=== PATIENT | female | born 1960 | race Two or more races ===

== ENCOUNTER → 2017-03-08 | Outpatient (CLI) | payer OTHER ==
--- NOTE | 2017-03-08 15:32 | RAD ---
DATE: 03/08/2017 EXAM: DIGITAL SCREEN BILAT W/CAD HISTORY: 56-year-old female for routine screening COMPARISON: Previous study from 2013 This study was interpreted with the benefit of Computerized Aided Detection (CAD ). FINDINGS: Breast Density: SCATTERED The breast parenchyma shows scattered fibroglandular densities. Breast parenchyma level B. Benign bilateral calcifications. There is a 0.9 x 1.5 cm oval-shaped isodense mass with circumscribed margins within central right breast approximately 4 cm from the nipple in inferior to the posterior nipple line on MLO view. No suspicious calcifications or areas of architectural distortion. Left breast show no suspicious findings. IMPRESSION: Mass within the central right breast most likely simple cyst. However, ultrasound recommended for further evaluation. BI-RADS CATEGORY: 0 INCOMPLETE: NEED ADDITIONAL IMAGING EVAULATION AND/OR PRIOR MAMMOGRAMS FOR COMPARISON RECOMMENDED FOLLOW-UP: PQRS compliance statement: Patient information was entered into a reminder system with a target due date for the next mammogram. Mammography is a sensitive method for finding small breast cancers, but it does not detect them all and is not a substitute for careful clinical examination. A negative mammogram does not negate a clinically suspicious finding and should not result in delay in biopsying a clinically suspicious abnormality. "Our facility is accredited by the [employer] Mammography Program." [place]
== END | disposition home or self-care (01) ==
LOC: MAMMO 13:21
PROVIDERS: ATTEND Obstetrics & Gynecology
DX: Z12.31 Encounter for screening mammogram for malignant neoplasm of breast (principal)
CPT/HCPCS: G0202; 77067

== ENCOUNTER → 2017-03-11 | Outpatient (CLI) | payer OTHER ==
--- NOTE | 2017-03-11 12:52 | RAD ---
Ultrasound breast Indication: Mammographic abnormality seen on study from 03/08/2017 Technique: Targeted ultrasound of the right breast Comparison: Previous mammogram from 03/08/2017 Findings: There is an oval-shaped hypoechoic lesion at 7:00 position, 4 cm from nipple measuring 1.1 x 0.4 x 1.3 cm with well circumscribed margins. The lesion is wider than taller. Low-level echoes are seen within this lesion. No vascularity seen. There is suggestion of internal septation. Impression: Lesion in the right breast most likely minimally complicated cyst. Follow-up ultrasound in 6 months. BI-RADS 3: Probably benign. Follow-up ultrasound in 6 months recommended.
== END | disposition home or self-care (01) ==
LOC: US 10:48
PROVIDERS: ATTEND Obstetrics & Gynecology
DX: R92.8 Other abnormal and inconclusive findings on diagnostic imaging of breast (principal)
CPT/HCPCS: 76641

== ENCOUNTER → 2017-08-29 | Outpatient (CLI) | payer OTHER | END | disposition home or self-care (01) | LOC: US 10:58 | DX: N60.01 Solitary cyst of right breast (principal) | CPT/HCPCS: 76641 ==

== ENCOUNTER 2018-11-28 09:46 | Inpatient (IN) | payer OTHER ==
[2018-11-28] VITALS (10 sets, daily range): BP systolic 82–97; BP diastolic 56–63
[~2018-11-28] VITALS: Ht 154.9 cm; Wt 70.8 kg
[2018-11-28 10:02] LABS: BILIRUBIN,URINE NEGATIVE (NEG); CLARITY,URINE TURBID; COLOR,URINE YELLOW; NITRITE,URINE NEGATIVE (NEG); PROTEIN,URINE 100 mg/dL (NEG-TRACE)
[2018-11-28 10:31] LABS: BACTERIA,URINE FEW /HPF (0-FEW); RBC,URINE 0 /HPF (0-2); SQUAMOUS EPITHELIAL CELL,UR MOD /LPF; WBC,URINE TNTC /HPF (0-4)
[2018-11-28] MEDS ORDERED: ONDANSETRON PF 4 MG/2 ML VIAL. ONE (10:36)
[2018-11-28] MEDS ORDERED: KETOROLAC 30 MG/ML VIAL. ONE (10:36)
[2018-11-28 10:39] LABS: BASO % 0 % (0-3); EOS # 0.2 x10^3/uL (0.0-0.7); EOS % 1 % (0-3); HEMATOCRIT 35.4 % (36.0-47.0); HEMOGLOBIN 11.9 g/dL (12.0-15.5); LYMPH # 0.2 x10^3/uL (1.0-4.8); LYMPH % 2 % (24-48); MEAN CORPUSCULAR HEMOGLOBIN 29 pg (25-35); MEAN CORPUSCULAR HGB CONC 34 g/dL (31-37); MEAN CORPUSCULAR VOLUME 85 fL (79-100); MONO # 0.1 x10^3/uL (0.0-1.1); MONO % 1 % (0-9); NEUT # 12.5 x10^3uL (1.8-7.7); NEUT % 96 % (31-73); PLATELET COUNT 107 x10^3/uL (140-400); RED BLOOD COUNT 4.16 x10^6/uL (3.50-5.40); RED CELL DISTRIBUTION WIDTH 14.2 % (11.5-14.5)
[2018-11-28] MEDS: IV NORMAL SALINE 1000ML BAG 1,000 ML IV SCH ×2 (10:40→11:27)
[2018-11-28] MEDS ORDERED: ONDANSETRON PF 4 MG/2 ML VIAL. IV ONE (10:45)
[2018-11-28] MEDS ORDERED: KETOROLAC 30 MG/ML VIAL. IV ONE (10:45)
[2018-11-28 10:46] LABS: PROTHROMBIN TIME PATIENT 14.5 SEC (11.7-14.0)
[2018-11-28 10:53] LABS: CALCIUM 9.1 mg/dL (8.5-10.1); CREATININE 1.6 mg/dL (0.6-1.0); POTASSIUM 3.4 mmol/L (3.5-5.1)
[2018-11-28 10:58] LABS: ALBUMIN 2.5 g/dL (3.4-5.0); ALBUMIN/GLOBULIN RATIO 0.6 (1.0-1.7); TOTAL PROTEIN 6.5 g/dL (6.4-8.2)
[2018-11-28] MEDS ORDERED: IV NORMAL SALINE 1000ML BAG 1,000 ML IV ONE ×3 (11:00→12:30)
[2018-11-28] MEDS ORDERED: VANCOMYCIN 1.5 GM in IV NORMAL SALINE 500ML BAG 500 ML IV ONE (11:15)
[2018-11-28] MEDS ORDERED: CEFEPIME HCL IV Push 1 GM VIAL. IVP ONE (11:15)
--- NOTE | 2018-11-28 11:19 | RAD ---
CHEST PA LATERAL History: Cough, left-sided pain Comparison: None. Findings: The cardiomediastinal silhouette is normal. Pulmonary vasculature is normal. The lungs are clear. No pleural effusion or pneumothorax is seen. There is no acute bone abnormality. Small hiatal hernia is present with a fluid level within it. Calcific densities involving the left upper quadrant noted. Dextroconvexity of the thoracic spine noted. IMPRESSION: No acute cardiopulmonary process. Hiatal hernia. Electronically signed by: Qasim Gross MD (11/28/2018 11:16 AM) [facility]
[2018-11-28 11:23] LABS: % BANDS 13 % (0-9); % LYMPHS 3 % (24-48); % MONOS 3 % (0-10); % SEGS 81 % (35-66); PLT ESTIMATE DECREASED (ADEQUATE)
[2018-11-28 11:25] LABS: TOXIC VACUOLATION MOD
[2018-11-28 11:26] LABS: TOXIC GRANULATION PRESENT
[2018-11-28] MEDS ORDERED: IV NORMAL SALINE 1000ML BAG 1,000 ML IV SCH (12:29)
[2018-11-28] MEDS ORDERED: MORPHINE SULFATE 2 MG/ML VIAL. IV PRN (12:30)
[2018-11-28] MEDS ORDERED: ONDANSETRON PF 4 MG/2 ML VIAL. IV PRN (12:30)
[2018-11-28] MEDS ORDERED: ACETAMINOPHEN 325 MG TABLET. PO PRN (12:30)
--- NOTE | 2018-11-28 12:30 | EKG ---
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
--- NOTE | 2018-11-28 12:37 | PHYS DOC ---
Past Medical History Past Medical History: No Pertinent History (LINNETTE OTT APRN) Past Surgical History: Hysterectomy Additional Past Surgical Histo: (LINNETTE OTT APRN) Alcohol Use: None Drug Use: None (LINNETTE OTT APRN) Adult General Chief Complaint Chief Complaint: NAUSEA/VOMITING/DIARRHA HPI HPI Patient is a 58 year old female with no significant medical history who presents to the ED today complaining of body aches, subjective fevers, nausea, vomiting, slight nasal congestion, not feeling well, symptoms began on Tuesday last week. She states yesterday she was seen by the PCP, was diagnosed with influenza, was put on Tamiflu as well as Augmentin. She does not know why she was put on Augmentin. She states she was also experiencing low back pain. Denies any urgency frequency dysuria. Denies any hematuria. (LINNETTE OTT APRN) Review of Systems Review of Systems Constitutional: Denies fever or chills [] Eyes: Denies change in visual acuity, redness, or eye pain [] HENT: Denies nasal congestion or sore throat [] Respiratory: Denies cough or shortness of breath [] Cardiovascular: No additional information not addressed in HPI [] GI: Reports nausea, vomiting, denies abdominal pain bloody stools or diarrhea [] : Denies dysuria or hematuria [] Musculoskeletal: Denies back pain or joint pain [] Integument: Denies rash or skin lesions [] Neurologic: Denies headache, focal weakness or sensory changes [] All other systems were reviewed and found to be within normal limits, except as documented in this note. (LINNETTE OTT APRN) Current Medications Current Medications Current Medications Medications (Trade) Dose Ordered Sig/Ella Start Time Stop Time Status Last Admin Dose Admin Cefepime HCl (Maxipime) 1 gm 1X ONCE 11/28/18 11:15 11/28/18 11:16 DC 11/28/18 11:26 1 GM Ketorolac Tromethamine (Toradol 30mg Vial) 30 mg STK-MED ONCE 11/28/18 10:36 11/28/18 10:37 DC Ondansetron HCl (Zofran) 4 mg STK-MED ONCE 11/28/18 10:36 11/28/18 10:37 DC Sodium Chloride 1,000 ml @ 125 mls/hr 1X ONCE 11/28/18 12:15 11/28/18 20:14 11/28/18 12:28 125 MLS/HR Vancomycin HCl (Vanco Per Pharmacy) 1 each PRN DAILY PRN 11/28/18 11:00 11/28/18 14:58 1 EACH Vancomycin HCl 1.5 gm/Sodium Chloride 500 ml @ 250 mls/hr 1X ONCE 11/28/18 11:15 11/28/18 13:14 DC 11/28/18 11:31 250 MLS/HR (LUCIA BOWERS MD) Allergies Allergies Allergies Coded Allergies Type Severity Reaction Last Updated Verified No Known Drug Allergies 11/28/18 No (LUCIA BOWERS MD) Physical Exam Physical Exam Constitutional: Well developed, well nourished, no acute distress, non-toxic appearance. [] HENT: Normocephalic, atraumatic, bilateral external ears normal, oropharynx moist, no oral exudates, nose normal. [] Eyes: PERRLA, EOMI, conjunctiva normal, no discharge. [] Neck: Normal range of motion, no tenderness, supple, no stridor. [] Cardiovascular: Tachycardic Lungs & Thorax: Bilateral breath sounds clear to auscultation [] Abdomen: Bowel sounds normal, soft, no tenderness, no masses, no pulsatile masses. [] Skin: Warm, dry, no erythema, no rash. [] Back: No tenderness, no CVA tenderness. [] Extremities: No tenderness, no cyanosis, no clubbing, ROM intact, no edema. [] Neurologic: Alert and oriented X 3, normal motor function, normal sensory function, no focal deficits noted. [] Psychologic: Affect normal, judgement normal, mood normal. [] (LINNETTE OTT APRN) Current Patient Data Vital Signs Vital Signs Date Time Temp Pulse Resp B/P (MAP) Pulse Ox O2 Delivery O2 Flow Rate FiO2 11/28/18 12:11 92 16 79/52 (61) 96 11/28/18 11:56 98.9 Room Air 98.9 (LUCIA BOWERS MD) Lab Values Laboratory Tests Test 11/28/18 09:55 11/28/18 10:12 Urine Collection Type Unknown Urine Color Yellow Urine Clarity Turbid Urine pH 6.0 Urine Specific Gail 1.020 Urine Protein 100 mg/dL (NEG-TRACE) Urine Glucose (UA) Negative mg/dL (NEG) Urine Ketones (Stick) Trace mg/dL (NEG) Urine Blood Moderate (NEG) Urine Nitrite Negative (NEG) Urine Bilirubin Negative (NEG) Urine Urobilinogen Dipstick 1.0 mg/dL (0.2 mg/dL) Urine Leukocyte Esterase Large (NEG) Urine RBC 0 /HPF (0-2) Urine WBC Tntc /HPF (0-4) Urine Squamous Epithelial Cells Mod /LPF Urine Bacteria Few /HPF (0-FEW) White Blood Count 13.0 x10^3/uL (4.0-11.0) H Red Blood Count 4.16 x10^6/uL (3.50-5.40) Hemoglobin 11.9 g/dL (12.0-15.5) L Hematocrit 35.4 % (36.0-47.0) L Mean Corpuscular Volume 85 fL (79-100) Mean Corpuscular Hemoglobin 29 pg (25-35) Mean Corpuscular Hemoglobin Concent 34 g/dL (31-37) Red Cell Distribution Width 14.2 % (11.5-14.5) Platelet Count 107 x10^3/uL (140-400) L Neutrophils (%) (Auto) 96 % (31-73) H Lymphocytes (%) (Auto) 2 % (24-48) L Monocytes (%) (Auto) 1 % (0-9) Eosinophils (%) (Auto) 1 % (0-3) Basophils (%) (Auto) 0 % (0-3) Neutrophils # (Auto) 12.5 x10^3uL (1.8-7.7) H Lymphocytes # (Auto) 0.2 x10^3/uL (1.0-4.8) L Monocytes # (Auto) 0.1 x10^3/uL (0.0-1.1) Eosinophils # (Auto) 0.2 x10^3/uL (0.0-0.7) Basophils # (Auto) 0.0 x10^3/uL (0.0-0.2) Segmented Neutrophils % 81 % (35-66) H Band Neutrophils % 13 % (0-9) H Lymphocytes % 3 % (24-48) L Monocytes % 3 % (0-10) Toxic Granulation Present Toxic Vacuolation Mod Dohle Bodies Present Platelet Estimate Decreased (ADEQUATE) Large Platelets Present Prothrombin Time 14.5 SEC (11.7-14.0) H Prothrombin Time INR 1.2 (0.8-1.1) H PTT 33 SEC (24-38) Sodium Level 136 mmol/L (136-145) Potassium Level 3.4 mmol/L (3.5-5.1) L Chloride Level 100 mmol/L (98-107) Carbon Dioxide Level 22 mmol/L (21-32) Anion Gap 14 (6-14) Blood Urea Nitrogen 32 mg/dL (7-20) H Creatinine 1.6 mg/dL (0.6-1.0) H Estimated GFR (Cockcroft-Gault) 33.0 BUN/Creatinine Ratio 20 (6-20) Glucose Level 132 mg/dL (70-99) H Lactic Acid Level 3.3 mmol/L (0.4-2.0) H Calcium Level 9.1 mg/dL (8.5-10.1) Total Bilirubin 1.0 mg/dL (0.2-1.0) Aspartate Amino Transferase (AST) 43 U/L (15-37) H Alanine Aminotransferase (ALT) 43 U/L (14-59) Alkaline Phosphatase 329 U/L (46-116) H Total Protein 6.5 g/dL (6.4-8.2) Albumin 2.5 g/dL (3.4-5.0) L Albumin/Globulin Ratio 0.6 (1.0-1.7) L Lipase 73 U/L (73-393) Laboratory Tests 11/28/18 10:12 Laboratory Tests 11/28/18 10:12 (LUCIA BOWERS MD) EKG EKG 10:[address] Bowers sinus tachycardia heart rate 110 no STEMI (LINNETTE OTT APRN) Radiology/Procedures Radiology/Procedures []PROCEDURE: CHEST PA & LATERAL CHEST PA LATERAL History: Cough, left-sided pain Comparison: None. Findings: The cardiomediastinal silhouette is normal. Pulmonary vasculature is normal. The lungs are clear. No pleural effusion or pneumothorax is seen. There is no acute bone abnormality. Small hiatal hernia is present with a fluid level within it. Calcific densities involving the left upper quadrant noted. Dextroconvexity of the thoracic spine noted. IMPRESSION: No acute cardiopulmonary process. Hiatal hernia. Electronically signed by: Qasim Boyle MD (11/28/2018 11:16 AM) [facility] DICTATED and SIGNED BY: QASIM BOYLE MD DATE: 11/28/18 1116 (LINNETTE OTT APRN) Course & Med Decision Making Course & Med Decision Making Pertinent Labs and Imaging studies reviewed. (See chart for details) This is a 58-year-old female patient who presents to the ED today with multiple complaints including nausea, vomiting, not feeling well, back pain. Cyst on since Tuesday. Patient was seen by the PCP yesterday and diagnosed with influe nza, started on Tamiflu and Augmentin. She states she does not know why she was started on Augmentin. On arrival to the ED temperature 98.3, heart rate blood pressures 73/43, O2 sats 96% on room air. Patient was started on the sepsis protocol fluid resuscitation measures. Patient was also given Zosyn and vancomycin. Lactic 3.3, CBC with a WBC of 13.0 and a left shift, creatinine 1.6 BUN 32. I personally reevaluated patient after the first round of 30 mL per KG IV fluids. Cap refill less than 2 seconds to the fingers, skin is pink. Patient feels better, blood pressure had improved to 80/53 with a heart rate of 100. Repeat lactate 1.5. Spoke with Dr. Guido who accepted patient for admission. Routine Consult placed for infectious disease IV fluids continued inpatient (LINNETTE OTT APRN) Course & Med Decision Making 58 y/o F presents for multiple complaints. Lactic mildly elevated, blood pressure soft. Responded well to fluids. Lactic improved. (LUCIA BOWERS MD) Dragon Disclaimer Dragon Disclaimer This electronic medical record was generated, in whole or in part, using a voice recognition dictation system. (LINNETTE OTT APRN) Departure Departure Impression: Primary Impression: Septic shock Additional Impressions: UTI (urinary tract infection) Hypoglycemia Acute renal failure Hypotension Disposition: ADMITTED INPATIENT Condition: STABLE Referrals: SEJAL DELEON MD (PCP) Problem Qualifiers Additional Impressions: UTI (urinary tract infection) Urinary tract infection type: site unspecified Hematuria presence: without hematuria Qualified Codes: N39.0 - Urinary tract infection, site not specified Acute renal failure Acute renal failure type: unspecified Qualified Codes: N17.9 - Acute kidney failure, unspecified Hypotension Hypotension type: unspecified hypotension type Qualified Codes: I95.9 - Hypotension, unspecified LINNETTE OTT APRN November 28, 2018 12:37 LUCIA BOWERS MD November 28, 2018 18:09
--- NOTE | 2018-11-28 14:08 | PDOC1 ---
History and Physical Date of Admission: Date of Admission DATE: 11/28/18 TIME: 14:05 Chief Complaint: Problems: (1) Septic shock (2) Hypoglycemia (3) UTI (urinary tract infection) Chief Complain: Bodyaches fever and dysuria History of Present Illness: HPI: Patient is a pleasant middle-aged female who presented with the above chief complaints Rated at 10 out 10 she has associated nausea occurring for several days describes as agonizing Ino the ER we checked her urine she has a UTI and probable sepsis she's hypotensive and tachycardic I discussed case with ER physician she's been ago to the ICU Past Medical/Surgical History: PMH/PSH: Hysterectomy and Allergies: Allergies: Coded Allergies: No Known Drug Allergies (Unverified , 11/28/18) Family History: Family History: Hypertension Social History: Social Hisoty: She doesn't drink smoke or take drugs Current Medications: Current Medications Current Medications Sodium Chloride 1,000 ml @ 1,440 mls/hr Q42M IV Last administered on 11/28/18at 10:40; Start 11/28/18 at 10:45; Stop 11/28/18 at 11:45; Status DC Ketorolac Tromethamine (Toradol 30mg Vial) 30 mg 1X ONCE IV Last administered on 11/28/18at 10:41; Start 11/28/18 at 10:45; Stop 11/28/18 at 10:46; Status DC Ondansetron HCl (Zofran) 4 mg 1X ONCE IV Last administered on 11/28/18at 10:41; Start 11/28/18 at 10:45; Stop 11/28/18 at 10:46; Status DC Ondansetron HCl (Zofran) 4 mg STK-MED ONCE .ROUTE ; Start 11/28/18 at 10:36; Stop 11/28/18 at 10:37; Status DC Ketorolac Tromethamine (Toradol 30mg Vial) 30 mg STK-MED ONCE .ROUTE ; Start at 10:36; Stop 11/28/18 at 10:37; Status DC Vancomycin HCl (Vanco Per Pharmacy) 1 each PRN DAILY PRN MC SEE COMMENTS; S tart 11/28/18 at 11:00 Cefepime HCl (Maxipime) 1 gm 1X ONCE IVP Last administered on 11/28/18at 11:26; Start 11/28/18 at 11:15; Stop 11/28/18 at 11:16; Status DC Sodium Chloride 1,000 ml @ 1,000 mls/hr 1X ONCE IV Last administered on 11/28/18at 11:04; Start 11/28/18 at 11:00; Stop 11/28/18 at 11:59; Status DC Vancomycin HCl 1.5 gm/Sodium Chloride 500 ml @ 250 mls/hr 1X ONCE IV Last administered on 11/28/18at 11:31; Start 11/28/18 at 11:15; Stop 11/28/18 at 13:14; Status DC Sodium Chloride 1,000 ml @ 125 mls/hr 1X ONCE IV Last administered on 11/28/18at 12:28; Start 11/28/18 at 12:15; Stop 11/28/18 at 20:14 Ondansetron HCl (Zofran) 4 mg PRN Q8HRS PRN IV NAUSEA/VOMITING; Start 11/28/18 at 12:30; Stop 11/29/18 at 12:29 Morphine Sulfate (Morphine Sulfate) 2 mg PRN Q2HR PRN IV PAIN; Start 11/28/18 at 12:30; Stop 11/29/18 at 12:29 Sodium Chloride 1,000 ml @ 0 mls/hr Q0M IV ; Start 11/28/18 at 12:29; Stop 11/29/18 at 12:28 Acetaminophen (Tylenol) 650 mg PRN Q4HRS PRN PO FEVER; Start 11/28/18 at 12:30; Stop 11/29/18 at 12:29 Sodium Chloride 1,000 ml @ 125 mls/hr 1X ONCE IV ; Start 11/28/18 at 12:30; Stop 11/28/18 at 20:29 ROS: Review of Systems Review of System REVIEW OF SYSTEMS: GENERAL: Complains of body aches and fevers SKIN: No bruising, hair changes or rashes. EYES: No blurred, double or loss of vision. NOSE AND THROAT: No history of nosebleeds, hoarseness or sore throat. HEART: No history of palpitations, chest pain or shortness of breath on exertion. LUNGS: Denies cough, hemoptysis, wheezing or shortness of breath. GASTROINTESTINAL: Complains of abdominal pain and flank pain and nausea constipation. GENITOURINARY: She combines of dysuria NEUROLOGIC: Denies history of numbness, tingling, tremor or weakness. PSYCHIATRIC: No history of panic, anxiety or depression. ENDOCRINE: No history of heat or cold intolerance, polyuria or polydipsia. EXTREMITIES: Denies muscle weakness, joint pain, pain on walking or stiffness. Physical Exam: Vital Signs: Vital Signs Date Time Temp Pulse Resp B/P (MAP) Pulse Ox O2 Delivery O2 Flow Rate FiO2 11/28/18 13:41 80 16 86/55 (65) 97 11/28/18 13:26 Room Air 11/28/18 11:56 98.9 98.9 Physcial Exam: GEN.: Alert but weak HEENT: Head is normocephalic, atraumatic NECK: Supple, no JVD LUNGS: Clear to auscultation without rhonchi or wheezing HEART: RRR, S1, S2 present. Peripheral pulses intact ABDOMEN: Tender decreased bowel sounds EXTREMITIES: Without any cyanosis, clubbing, or edema. Pedal pulses intact NEUROLOGIC: Normal speech, normal tone. A&O x 3 PSYCHIATRIC: Normal affect, normal mood. Stable SKIN: No ulcerations or rashes VASCULAR: Good capillary refill Labs: Labs: Laboratory Tests Test 11/28/18 09:55 11/28/18 10:12 Urine Collection Type Unknown Urine Color Yellow Urine Clarity Turbid Urine pH 6.0 Urine Specific [place] 1.020 Urine Protein 100 mg/dL (NEG-TRACE) Urine Glucose (UA) Negative mg/dL (NEG) Urine Ketones (Stick) Trace mg/dL (NEG) Urine Blood Moderate (NEG) Urine Nitrite Negative (NEG) Urine Bilirubin Negative (NEG) Urine Urobilinogen Dipstick 1.0 mg/dL (0.2 mg/dL) Urine Leukocyte Esterase Large (NEG) Urine RBC 0 /HPF (0-2) Urine WBC Tntc /HPF (0-4) Urine Squamous Epithelial Cells Mod /LPF Urine Bacteria Few /HPF (0-FEW) White Blood Count 13.0 x10^3/uL (4.0-11.0) Red Blood Count 4.16 x10^6/uL (3.50-5.40) Hemoglobin 11.9 g/dL (12.0-15.5) Hematocrit 35.4 % (36.0-47.0) Mean Corpuscular Volume 85 fL (79-100) Mean Corpuscular Hemoglobin 29 pg (25-35) Mean Corpuscular Hemoglobin Concent 34 g/dL (31-37) Red Cell Distribution Width 14.2 % (11.5-14.5) Platelet Count 107 x10^3/uL (140-400) Neutrophils (%) (Auto) 96 % (31-73) Lymphocytes (%) (Auto) 2 % (24-48) Monocytes (%) (Auto) 1 % (0-9) Eosinophils (%) (Auto) 1 % (0-3) Basophils (%) (Auto) 0 % (0-3) Neutrophils # (Auto) 12.5 x10^3uL (1.8-7.7) Lymphocytes # (Auto) 0.2 x10^3/uL (1.0-4.8) Monocytes # (Auto) 0.1 x10^3/uL (0.0-1.1) Eosinophils # (Auto) 0.2 x10^3/uL (0.0-0.7) Basophils # (Auto) 0.0 x10^3/uL (0.0-0.2) Segmented Neutrophils % 81 % (35-66) Band Neutrophils % 13 % (0-9) Lymphocytes % 3 % (24-48) Monocytes % 3 % (0-10) Toxic Granulation Present Toxic Vacuolation Mod Dohle Bodies Present Platelet Estimate Decreased (ADEQUATE) Large Platelets Present Prothrombin Time 14.5 SEC (11.7-14.0) Prothromb Time International Ratio 1.2 (0.8-1.1) Activated Partial Thromboplast Time 33 SEC (24-38) Sodium Level 136 mmol/L (136-145) Potassium Level 3.4 mmol/L (3.5-5.1) Chloride Level 100 mmol/L (98-107) Carbon Dioxide Level 22 mmol/L (21-32) Anion Gap 14 (6-14) Blood Urea Nitrogen 32 mg/dL (7-20) Creatinine 1.6 mg/dL (0.6-1.0) Estimated GFR (Cockcroft-Gault) 33.0 BUN/Creatinine Ratio 20 (6-20) Glucose Level 132 mg/dL (70-99) Lactic Acid Level 3.3 mmol/L (0.4-2.0) Calcium Level 9.1 mg/dL (8.5-10.1) Total Bilirubin 1.0 mg/dL (0.2-1.0) Aspartate Amino Transf (AST/SGOT) 43 U/L (15-37) Alanine Aminotransferase (ALT/SGPT) 43 U/L (14-59) Alkaline Phosphatase 329 U/L (46-116) Total Protein 6.5 g/dL (6.4-8.2) Albumin 2.5 g/dL (3.4-5.0) Albumin/Globulin Ratio 0.6 (1.0-1.7) Lipase 73 U/L (73-393) Laboratory Tests Test 11/28/18 09:55 11/28/18 10:12 Urine Collection Type Unknown Urine Color Yellow Urine Clarity Turbid Urine pH 6.0 Urine Specific [place] 1.020 Urine Protein 100 mg/dL (NEG-TRACE) Urine Glucose (UA) Negative mg/dL (NEG) Urine Ketones (Stick) Trace mg/dL (NEG) Urine Blood Moderate (NEG) Urine Nitrite Negative (NEG) Urine Bilirubin Negative (NEG) Urine Urobilinogen Dipstick 1.0 mg/dL (0.2 mg/dL) Urine Leukocyte Esterase Large (NEG) Urine RBC 0 /HPF (0-2) Urine WBC Tntc /HPF (0-4) Urine Squamous Epithelial Cells Mod /LPF Urine Bacteria Few /HPF (0-FEW) White Blood Count 13.0 x10^3/uL (4.0-11.0) Red Blood Count 4.16 x10^6/uL (3.50-5.40) Hemoglobin 11.9 g/dL (12.0-15.5) Hematocrit 35.4 % (36.0-47.0) Mean Corpuscular Volume 85 fL (79-100) Mean Corpuscular Hemoglobin 29 pg (25-35) Mean Corpuscular Hemoglobin Concent 34 g/dL (31-37) Red Cell Distribution Width 14.2 % (11.5-14.5) Platelet Count 107 x10^3/uL (140-400) Neutrophils (%) (Auto) 96 % (31-73) Lymphocytes (%) (Auto) 2 % (24-48) Monocytes (%) (Auto) 1 % (0-9) Eosinophils (%) (Auto) 1 % (0-3) Basophils (%) (Auto) 0 % (0-3) Neutrophils # (Auto) 12.5 x10^3uL (1.8-7.7) Lymphocytes # (Auto) 0.2 x10^3/uL (1.0-4.8) Monocytes # (Auto) 0.1 x10^3/uL (0.0-1.1) Eosinophils # (Auto) 0.2 x10^3/uL (0.0-0.7) Basophils # (Auto) 0.0 x10^3/uL (0.0-0.2) Segmented Neutrophils % 81 % (35-66) Band Neutrophils % 13 % (0-9) Lymphocytes % 3 % (24-48) Monocytes % 3 % (0-10) Toxic Granulation Present Toxic Vacuolation Mod Dohle Bodies Present Platelet Estimate Decreased (ADEQUATE) Large Platelets Present Prothrombin Time 14.5 SEC (11.7-14.0) Prothromb Time International Ratio 1.2 (0.8-1.1) Activated Partial Thromboplast Time 33 SEC (24-38) Sodium Level 136 mmol/L (136-145) Potassium Level 3.4 mmol/L (3.5-5.1) Chloride Level 100 mmol/L (98-107) Carbon Dioxide Level 22 mmol/L (21-32) Anion Gap 14 (6-14) Blood Urea Nitrogen 32 mg/dL (7-20) Creatinine 1.6 mg/dL (0.6-1.0) Estimated GFR (Cockcroft-Gault) 33.0 BUN/Creatinine Ratio 20 (6-20) Glucose Level 132 mg/dL (70-99) Lactic Acid Level 3.3 mmol/L (0.4-2.0) Calcium Level 9.1 mg/dL (8.5-10.1) Total Bilirubin 1.0 mg/dL (0.2-1.0) Aspartate Amino Transf (AST/SGOT) 43 U/L (15-37) Alanine Aminotransferase (ALT/SGPT) 43 U/L (14-59) Alkaline Phosphatase 329 U/L (46-116) Total Protein 6.5 g/dL (6.4-8.2) Albumin 2.5 g/dL (3.4-5.0) Albumin/Globulin Ratio 0.6 (1.0-1.7) Lipase 73 U/L (73-393) Images: Images Findings: The cardiomediastinal silhouette is normal. Pulmonary vasculature is normal. The lungs are clear. No pleural effusion or pneumothorax is seen. There is no acute bone abnormality. Small hiatal hernia is present with a fluid level within it. Calcific densities involving the left upper quadrant noted. Dextroconvexity of the thoracic spine noted. IMPRESSION: No acute cardiopulmonary process. Assessment/Plan Assessment/Plan UTI with sepsis hypotension tachycardia fevers Plan IV antibiotics IV fluids DVT prophylaxis full code home meds frequent labs consult JOSE DAVIDSON III DO November 28, 2018 14:08
[2018-11-28] MEDS: VANCOMYCIN PER PHARMACY MC PRN ×2 (14:54→14:58)
--- NOTE | 2018-11-28 14:58 | NUR ---
Pharmacy Vancomycin Dosing Note S:Consulted to monitor and dose vancomycin started 11/28/18. O:BHUPINDER EDWARD is a 58 year old F with Sepsis . Height: 5 feet, 1 inches Weight: 69.438518 kg [place] Body Weight: 47.80 Adjusted Body Weight: 56.28 Dosing Weight: Actual Other Antibiotics: 11/28 CEFEPIME X 1 LABS: Last BUN: 32 Last Creatinine: 1.6 Creatinine Clearance: 33 mL/min Last WBC: 13 Last Procalcitonin: Tmax (past 24 hours): 98.9 Microbiology: 11/28 BCX/UCX PENDING I/O: Drug Levels: Last level: on at Last dose given 11/28/18 at 1130 Vancomycin Dosing: Loading Dose: 1500 mg x1 Dosing Weight: Actual Target Trough: 15-20 A: Based on: WEIGHT, CRCL~33, P: 1. INITIATE Vancomycin 1000 mg IV q24h AFTER 1500 MG LOADING DOSE 2. Follow up Trough level on 11/30/18 at 1100 3. Pharmacy will continue to monitor, follow and adjust therapy as needed. DEBBI RODRIGUEZ [facility], 11/28/18 [id number]
[2018-11-28] MEDS ORDERED: OSEL30CA PO (16:10)
[2018-11-29] VITALS (27 sets, daily range): BP systolic 80–138; BP diastolic 43–81
[2018-11-29 04:40] LABS: BASO % 0 % (0-3); EOS # 0.1 x10^3/uL (0.0-0.7); EOS % 1 % (0-3); HEMATOCRIT 31.5 % (36.0-47.0); HEMOGLOBIN 10.3 g/dL (12.0-15.5); LYMPH % 11 % (24-48); MEAN CORPUSCULAR HEMOGLOBIN 28 pg (25-35); MEAN CORPUSCULAR HGB CONC 33 g/dL (31-37); MEAN CORPUSCULAR VOLUME 86 fL (79-100); MONO # 0.7 x10^3/uL (0.0-1.1); MONO % 8 % (0-9); NEUT # 7.2 x10^3uL (1.8-7.7); NEUT % 79 % (31-73); PLATELET COUNT 87 x10^3/uL (140-400); RED BLOOD COUNT 3.64 x10^6/uL (3.50-5.40); RED CELL DISTRIBUTION WIDTH 14.8 % (11.5-14.5); WHITE BLOOD COUNT 9.1 x10^3/uL (4.0-11.0)
[2018-11-29 05:01] LABS: ALBUMIN 1.8 g/dL (3.4-5.0); ALBUMIN/GLOBULIN RATIO 0.5 (1.0-1.7); CALCIUM 8.1 mg/dL (8.5-10.1); GFR 56.7; POTASSIUM 3.7 mmol/L (3.5-5.1); TOTAL BILIRUBIN 0.7 mg/dL (0.2-1.0); TOTAL PROTEIN 5.3 g/dL (6.4-8.2)
--- NOTE | 2018-11-29 06:59 | PDOC ---
Infectious Disease Note Vital Sign Vital Signs Vital Signs Date Time Temp Pulse Resp B/P (MAP) Pulse Ox O2 Delivery O2 Flow Rate FiO2 11/29/18 06:05 72 12 82/59 (67) 98 Room Air 11/29/18 04:00 98.3 98.3 Labs Lab Laboratory Tests Test 11/28/18 09:55 11/28/18 10:12 11/28/18 14:20 11/29/18 03:45 Urine Collection Type Unknown Urine Color Yellow Urine Clarity Turbid Urine pH 6.0 Urine Specific [place] 1.020 Urine Protein 100 mg/dL (NEG-TRACE) Urine Glucose (UA) Negative mg/dL (NEG) Urine Ketones (Stick) Trace mg/dL (NEG) Urine Blood Moderate (NEG) Urine Nitrite Negative (NEG) Urine Bilirubin Negative (NEG) Urine Urobilinogen Dipstick 1.0 mg/dL (0.2 mg/dL) Urine Leukocyte Esterase Large (NEG) Urine RBC 0 /HPF (0-2) Urine WBC Tntc /HPF (0-4) Urine Squamous Epithelial Cells Mod /LPF Urine Bacteria Few /HPF (0-FEW) White Blood Count 13.0 x10^3/uL (4.0-11.0) 9.1 x10^3/uL (4.0-11.0) Red Blood Count 4.16 x10^6/uL (3.50-5.40) 3.64 x10^6/uL (3.50-5.40) Hemoglobin 11.9 g/dL (12.0-15.5) 10.3 g/dL (12.0-15.5) Hematocrit 35.4 % (36.0-47.0) 31.5 % (36.0-47.0) Mean Corpuscular Volume 85 fL (79-100) 86 fL (79-100) Mean Corpuscular Hemoglobin 29 pg (25-35) 28 pg (25-35) Mean Corpuscular Hemoglobin Concent 34 g/dL (31-37) 33 g/dL (31-37) Red Cell Distribution Width 14.2 % (11.5-14.5) 14.8 % (11.5-14.5) Platelet Count 107 x10^3/uL (140-400) 87 x10^3/uL (140-400) Neutrophils (%) (Auto) 96 % (31-73) 79 % (31-73) Lymphocytes (%) (Auto) 2 % (24-48) 11 % (24-48) Monocytes (%) (Auto) 1 % (0-9) 8 % (0-9) Eosinophils (%) (Auto) 1 % (0-3) 1 % (0-3) Basophils (%) (Auto) 0 % (0-3) 0 % (0-3) Neutrophils # (Auto) 12.5 x10^3uL (1.8-7.7) 7.2 x10^3uL (1.8-7.7) Lymphocytes # (Auto) 0.2 x10^3/uL (1.0-4.8) 1.0 x10^3/uL (1.0-4.8) Monocytes # (Auto) 0.1 x10^3/uL (0.0-1.1) 0.7 x10^3/uL (0.0-1.1) Eosinophils # (Auto) 0.2 x10^3/uL (0.0-0.7) 0.1 x10^3/uL (0.0-0.7) Basophils # (Auto) 0.0 x10^3/uL (0.0-0.2) 0.0 x10^3/uL (0.0-0.2) Segmented Neutrophils % 81 % (35-66) Band Neutrophils % 13 % (0-9) Lymphocytes % 3 % (24-48) Monocytes % 3 % (0-10) Toxic Granulation Present Toxic Vacuolation Mod Dohle Bodies Present Platelet Estimate Decreased (ADEQUATE) Large Platelets Present Prothrombin Time 14.5 SEC (11.7-14.0) Prothromb Time International Ratio 1.2 (0.8-1.1) Activated Partial Thromboplast Time 33 SEC (24-38) Sodium Level 136 mmol/L (136-145) 144 mmol/L (136-145) Potassium Level 3.4 mmol/L (3.5-5.1) 3.7 mmol/L (3.5-5.1) Chloride Level 100 mmol/L (98-107) 112 mmol/L (98-107) Carbon Dioxide Level 22 mmol/L (21-32) 22 mmol/L (21-32) Anion Gap 14 (6-14) 10 (6-14) Blood Urea Nitrogen 32 mg/dL (7-20) 19 mg/dL (7-20) Creatinine 1.6 mg/dL (0.6-1.0) 1.0 mg/dL (0.6-1.0) Estimated GFR (Cockcroft-Gault) 33.0 56.7 BUN/Creatinine Ratio 20 (6-20) 19 (6-20) Glucose Level 132 mg/dL (70-99) 102 mg/dL (70-99) Lactic Acid Level 3.3 mmol/L (0.4-2.0) 1.5 mmol/L (0.4-2.0) Calcium Level 9.1 mg/dL (8.5-10.1) 8.1 mg/dL (8.5-10.1) Total Bilirubin 1.0 mg/dL (0.2-1.0) 0.7 mg/dL (0.2-1.0) Aspartate Amino Transf (AST/SGOT) 43 U/L (15-37) 171 U/L (15-37) Alanine Aminotransferase (ALT/SGPT) 43 U/L (14-59) 157 U/L (14-59) Alkaline Phosphatase 329 U/L (46-116) 185 U/L (46-116) Total Protein 6.5 g/dL (6.4-8.2) 5.3 g/dL (6.4-8.2) Albumin 2.5 g/dL (3.4-5.0) 1.8 g/dL (3.4-5.0) Albumin/Globulin Ratio 0.6 (1.0-1.7) 0.5 (1.0-1.7) Lipase 73 U/L (73-393) Objective Assessment Sepsis - POA Bandemia ? UTI - POA 11/28 reported influenza Transaminitis - ? sec to hypotension TATIANA - better Plan Plan of Care Cont Vanc Add Rocephin/levophed Add Influenza screen F/u cults Labs in am - CBC/BMP/Liver tests Add Procalcitonin D/w nursing Thank you # [phone] MIKA LICONA MD November 29, 2018 06:59
[2018-11-29] MEDS ORDERED: IV NORMAL SALINE 500ML BAG 500 ML IV ONE (07:30)
[2018-11-29] MEDS: cefTRIAXone IV Push 2 GM VIAL. IVP SCH (08:19)
[2018-11-29] MEDS: VANCOMYCIN PER PHARMACY MC PRN (09:52)
--- NOTE | 2018-11-29 10:19 | PDOC ---
PROGRESS NOTES History of Present Illness History of Present Illness History of Present Illness: HPI: Patient is a pleasant middle-aged female who presented with the above chief complaints Rated at 10 out 10 she has associated nausea occurring for several days describes as agonizing Ino the ER we checked her urine she has a UTI and probable sepsis she's hypotensive and tachycardic I discussed case with ER physician she's been ago to the ICU Past Medical/Surgical History: PMH/PSH: Hysterectomy and Allergies: Allergies: Coded Allergies: No Known Drug Allergies (Unverified , 11/28/18) Family History: Family History: Hypertension Social History: Social Hisoty: She doesn't drink smoke or take drugs Assessment/Plan UTI with sepsis GRAM NEGATIVE RODS IN 2 OF 4 BOTTLES hypotension tachycardia fever CKD stage 2-3 transaminitis, shock liver Plan IV antibiotics IV fluids DVT prophylaxis full code home meds frequent labs consult ID consult iv Vanc iv Rocephin/levophed 34 min cc time repeat blood cult x 2 Vitals Vitals Vital Signs Date Time Temp Pulse Resp B/P (MAP) Pulse Ox O2 Delivery O2 Flow Rate FiO2 11/29/18 08:00 Room Air 11/29/18 06:05 72 12 82/59 (67) 98 11/29/18 04:00 98.3 98.3 Physical Exam Physical Exam GEN.: Alert but weak HEENT: Head is normocephalic, atraumatic NECK: Supple, no JVD LUNGS: Clear to auscultation without rhonchi or wheezing HEART: RRR, S1, S2 present. Peripheral pulses intact ABDOMEN: Tender decreased bowel sounds EXTREMITIES: Without any cyanosis, clubbing, or edema. Pedal pulses intact NEUROLOGIC: Normal speech, normal tone. A&O x 3 PSYCHIATRIC: Normal affect, normal mood. Stable SKIN: No ulcerations or rashes VASCULAR: Good capillary refill General: Oriented X3, Cooperative Extremities: No cyanosis Labs LABS SPEC #: [id number] ALISA: 11/28/18 STATUS: COMP REQ #: [id number] RECD: 11/28/[address]: LINNETTE OTT APRN SOURCE: BLOOD ENTR: 11/28/[address]: SEJAL DELEON MD SPDESC: NON,STAFF ORDERED: BCULT Procedure Result BLOOD CULTURE Final GRAM NEGATIVE RODS IN 2 OF 4 BOTTLES (2 SETS DRAWN). CALLED TO DEBBI NEWMAN IN ICU 11/29/18 AT 0843 BY Rosalie KNAPP. CULTURES HAVE BEEN SENT TO [facility] FOR FURTHER IDENTIFICATION. CHEST PA LATERAL History: Cough, left-sided pain Comparison: None. Findings: The cardiomediastinal silhouette is normal. Pulmonary vasculature is normal. The lungs are clear. No pleural effusion or pneumothorax is seen. There is no acute bone abnormality. Small hiatal hernia is present with a fluid level within it. Calcific densities involving the left upper quadrant noted. Dextroconvexity of the thoracic spine noted. IMPRESSION: No acute cardiopulmonary process. Hiatal hernia. Laboratory Tests Test 11/28/18 14:20 11/29/18 03:45 Lactic Acid Level 1.5 mmol/L (0.4-2.0) White Blood Count 9.1 x10^3/uL (4.0-11.0) Red Blood Count 3.64 x10^6/uL (3.50-5.40) Hemoglobin 10.3 g/dL (12.0-15.5) Hematocrit 31.5 % (36.0-47.0) Mean Corpuscular Volume 86 fL (79-100) Mean Corpuscular Hemoglobin 28 pg (25-35) Mean Corpuscular Hemoglobin Concent 33 g/dL (31-37) Red Cell Distribution Width 14.8 % (11.5-14.5) Platelet Count 87 x10^3/uL (140-400) Neutrophils (%) (Auto) 79 % (31-73) Lymphocytes (%) (Auto) 11 % (24-48) Monocytes (%) (Auto) 8 % (0-9) Eosinophils (%) (Auto) 1 % (0-3) Basophils (%) (Auto) 0 % (0-3) Neutrophils # (Auto) 7.2 x10^3uL (1.8-7.7) Lymphocytes # (Auto) 1.0 x10^3/uL (1.0-4.8) Monocytes # (Auto) 0.7 x10^3/uL (0.0-1.1) Eosinophils # (Auto) 0.1 x10^3/uL (0.0-0.7) Basophils # (Auto) 0.0 x10^3/uL (0.0-0.2) Sodium Level 144 mmol/L (136-145) Potassium Level 3.7 mmol/L (3.5-5.1) Chloride Level 112 mmol/L (98-107) Carbon Dioxide Level 22 mmol/L (21-32) Anion Gap 10 (6-14) Blood Urea Nitrogen 19 mg/dL (7-20) Creatinine 1.0 mg/dL (0.6-1.0) Estimated GFR (Cockcroft-Gault) 56.7 BUN/Creatinine Ratio 19 (6-20) Glucose Level 102 mg/dL (70-99) Calcium Level 8.1 mg/dL (8.5-10.1) Total Bilirubin 0.7 mg/dL (0.2-1.0) Aspartate Amino Transf (AST/SGOT) 171 U/L (15-37) Alanine Aminotransferase (ALT/SGPT) 157 U/L (14-59) Alkaline Phosphatase 185 U/L (46-116) Total Protein 5.3 g/dL (6.4-8.2) Albumin 1.8 g/dL (3.4-5.0) Albumin/Globulin Ratio 0.5 (1.0-1.7) Procalcitonin 21.14 ng/mL (0.00-0.10) Assessment and Plan Assessmemt and Plan Problems Medical Problems: (1) Acute renal failure Status: Acute (2) Hypoglycemia Status: Acute (3) Hypotension Status: Acute (4) Septic shock Status: Acute (5) UTI (urinary tract infection) Status: Acute EXAM: Right breast ultrasound. HISTORY: Six-month follow-up of a right breast, acute cyst. COMPARISON: 03/11/2017. FINDINGS: Sonographic evaluation of the right breast and axilla was performed at the site of prior concern. At the 7:00 position, 4 cm from the nipple, there is a septated anechoic and hypoechoic mass measuring 1.5 x 1.2 x 0.5 cm. It is partially filled with hypoechoic material, but no internal flow is detectable. There is no interval change. At the 7:00 position 5 cm from the nipple, another similar but smaller likely, consistent is also unchanged on comparison with a cine clip from the prior study. It measures 9 x 4 x 3 mm. There is no clear internal flow. Images of the right axilla reveal no pathologically enlarged lymph nodes. IMPRESSION: 1. BI-RADS Category 3: Probably benign findings. 2. Recommend six-month follow-up of adjacent stable masses, likely complicated cysts, at the 7:00 position 4-5 cm from the nipple when the patient returns for yearly mammography. DICTATED and SIGNED BY: AYLIN ADAMS MD DATE: 08/29/17 9625 Comment Review of Relevant I have reviewed the following items chavez (where applicable) has been applied. Labs Laboratory Tests Test 11/28/18 09:55 11/28/18 10:12 11/28/18 14:20 11/29/18 03:45 Urine Collection Type Unknown Urine Color Yellow Urine Clarity Turbid Urine pH 6.0 Urine Specific [place] 1.020 Urine Protein 100 mg/dL (NEG-TRACE) Urine Glucose (UA) Negative mg/dL (NEG) Urine Ketones (Stick) Trace mg/dL (NEG) Urine Blood Moderate (NEG) Urine Nitrite Negative (NEG) Urine Bilirubin Negative (NEG) Urine Urobilinogen Dipstick 1.0 mg/dL (0.2 mg/dL) Urine Leukocyte Esterase Large (NEG) Urine RBC 0 /HPF (0-2) Urine WBC Tntc /HPF (0-4) Urine Squamous Epithelial Cells Mod /LPF Urine Bacteria Few /HPF (0-FEW) White Blood Count 13.0 x10^3/uL (4.0-11.0) 9.1 x10^3/uL (4.0-11.0) Red Blood Count 4.16 x10^6/uL (3.50-5.40) 3.64 x10^6/uL (3.50-5.40) Hemoglobin 11.9 g/dL (12.0-15.5) 10.3 g/dL (12.0-15.5) Hematocrit 35.4 % (36.0-47.0) 31.5 % (36.0-47.0) Mean Corpuscular Volume 85 fL (79-100) 86 fL (79-100) Mean Corpuscular Hemoglobin 29 pg (25-35) 28 pg (25-35) Mean Corpuscular Hemoglobin Concent 34 g/dL (31-37) 33 g/dL (31-37) Red Cell Distribution Width 14.2 % (11.5-14.5) 14.8 % (11.5-14.5) Platelet Count 107 x10^3/uL (140-400) 87 x10^3/uL (140-400) Neutrophils (%) (Auto) 96 % (31-73) 79 % (31-73) Lymphocytes (%) (Auto) 2 % (24-48) 11 % (24-48) Monocytes (%) (Auto) 1 % (0-9) 8 % (0-9) Eosinophils (%) (Auto) 1 % (0-3) 1 % (0-3) Basophils (%) (Auto) 0 % (0-3) 0 % (0-3) Neutrophils # (Auto) 12.5 x10^3uL (1.8-7.7) 7.2 x10^3uL (1.8-7.7) Lymphocytes # (Auto) 0.2 x10^3/uL (1.0-4.8) 1.0 x10^3/uL (1.0-4.8) Monocytes # (Auto) 0.1 x10^3/uL (0.0-1.1) 0.7 x10^3/uL (0.0-1.1) Eosinophils # (Auto) 0.2 x10^3/uL (0.0-0.7) 0.1 x10^3/uL (0.0-0.7) Basophils # (Auto) 0.0 x10^3/uL (0.0-0.2) 0.0 x10^3/uL (0.0-0.2) Segmented Neutrophils % 81 % (35-66) Band Neutrophils % 13 % (0-9) Lymphocytes % 3 % (24-48) Monocytes % 3 % (0-10) Toxic Granulation Present Toxic Vacuolation Mod Dohle Bodies Present Platelet Estimate Decreased (ADEQUATE) Large Platelets Present Prothrombin Time 14.5 SEC (11.7-14.0) Prothromb Time International Ratio 1.2 (0.8-1.1) Activated Partial Thromboplast Time 33 SEC (24-38) Sodium Level 136 mmol/L (136-145) 144 mmol/L (136-145) Potassium Level 3.4 mmol/L (3.5-5.1) 3.7 mmol/L (3.5-5.1) Chloride Level 100 mmol/L (98-107) 112 mmol/L (98-107) Carbon Dioxide Level 22 mmol/L (21-32) 22 mmol/L (21-32) Anion Gap 14 (6-14) 10 (6-14) Blood Urea Nitrogen 32 mg/dL (7-20) 19 mg/dL (7-20) Creatinine 1.6 mg/dL (0.6-1.0) 1.0 mg/dL (0.6-1.0) Estimated GFR (Cockcroft-Gault) 33.0 56.7 BUN/Creatinine Ratio 20 (6-20) 19 (6-20) Glucose Level 132 mg/dL (70-99) 102 mg/dL (70-99) Lactic Acid Level 3.3 mmol/L (0.4-2.0) 1.5 mmol/L (0.4-2.0) Calcium Level 9.1 mg/dL (8.5-10.1) 8.1 mg/dL (8.5-10.1) Total Bilirubin 1.0 mg/dL (0.2-1.0) 0.7 mg/dL (0.2-1.0) Aspartate Amino Transf (AST/SGOT) 43 U/L (15-37) 171 U/L (15-37) Alanine Aminotransferase (ALT/SGPT) 43 U/L (14-59) 157 U/L (14-59) Alkaline Phosphatase 329 U/L (46-116) 185 U/L (46-116) Total Protein 6.5 g/dL (6.4-8.2) 5.3 g/dL (6.4-8.2) Albumin 2.5 g/dL (3.4-5.0) 1.8 g/dL (3.4-5.0) Albumin/Globulin Ratio 0.6 (1.0-1.7) 0.5 (1.0-1.7) Lipase 73 U/L (73-393) Procalcitonin 21.14 ng/mL (0.00-0.10) Laboratory Tests Test 11/28/18 14:20 11/29/18 03:45 Lactic Acid Level 1.5 mmol/L (0.4-2.0) White Blood Count 9.1 x10^3/uL (4.0-11.0) Red Blood Count 3.64 x10^6/uL (3.50-5.40) Hemoglobin 10.3 g/dL (12.0-15.5) Hematocrit 31.5 % (36.0-47.0) Mean Corpuscular Volume 86 fL (79-100) Mean Corpuscular Hemoglobin 28 pg (25-35) Mean Corpuscular Hemoglobin Concent 33 g/dL (31-37) Red Cell Distribution Width 14.8 % (11.5-14.5) Platelet Count 87 x10^3/uL (140-400) Neutrophils (%) (Auto) 79 % (31-73) Lymphocytes (%) (Auto) 11 % (24-48) Monocytes (%) (Auto) 8 % (0-9) Eosinophils (%) (Auto) 1 % (0-3) Basophils (%) (Auto) 0 % (0-3) Neutrophils # (Auto) 7.2 x10^3uL (1.8-7.7) Lymphocytes # (Auto) 1.0 x10^3/uL (1.0-4.8) Monocytes # (Auto) 0.7 x10^3/uL (0.0-1.1) Eosinophils # (Auto) 0.1 x10^3/uL (0.0-0.7) Basophils # (Auto) 0.0 x10^3/uL (0.0-0.2) Sodium Level 144 mmol/L (136-145) Potassium Level 3.7 mmol/L (3.5-5.1) Chloride Level 112 mmol/L (98-107) Carbon Dioxide Level 22 mmol/L (21-32) Anion Gap 10 (6-14) Blood Urea Nitrogen 19 mg/dL (7-20) Creatinine 1.0 mg/dL (0.6-1.0) Estimated GFR (Cockcroft-Gault) 56.7 BUN/Creatinine Ratio 19 (6-20) Glucose Level 102 mg/dL (70-99) Calcium Level 8.1 mg/dL (8.5-10.1) Total Bilirubin 0.7 mg/dL (0.2-1.0) Aspartate Amino Transf (AST/SGOT) 171 U/L (15-37) Alanine Aminotransferase (ALT/SGPT) 157 U/L (14-59) Alkaline Phosphatase 185 U/L (46-116) Total Protein 5.3 g/dL (6.4-8.2) Albumin 1.8 g/dL (3.4-5.0) Albumin/Globulin Ratio 0.5 (1.0-1.7) Procalcitonin 21.14 ng/mL (0.00-0.10) Microbiology 11/28/18 Blood Culture - Final, Complete Medications Current Medications Sodium Chloride 1,000 ml @ 1,440 mls/hr Q42M IV Last administered on 11/28/18at 10:40; Start 11/28/18 at 10:45; Stop 11/28/18 at 11:45; Status DC Ketorolac Tromethamine (Toradol 30mg Vial) 30 mg 1X ONCE IV Last administered on 11/28/18at 10:41; Start 11/28/18 at 10:45; Stop 11/28/18 at 10:46; Status DC Ondansetron HCl (Zofran) 4 mg 1X ONCE IV Last administered on 11/28/18at 10:41; Start 11/28/18 at 10:45; Stop 11/28/18 at 10:46; Status DC Ondansetron HCl (Zofran) 4 mg STK-MED ONCE .ROUTE ; Start 11/28/18 at 10:36; Stop 11/28/18 at 10:37; Status DC Ketorolac Tromethamine (Toradol 30mg Vial) 30 mg STK-MED ONCE .ROUTE ; Start 11/28/18 at 10:36; Stop 11/28/18 at 10:37; Status DC Vancomycin HCl (Vanco Per Pharmacy) 1 each PRN DAILY PRN MC SEE COMMENTS Last administered on 11/29/18at 09:52; Start 11/28/18 at 11:00 Cefepime HCl (Maxipime) 1 gm 1X ONCE IVP Last administered on 11/28/18at 11:26; Start 11/28/18 at 11:15; Stop 11/28/18 at 11:16; Status DC Sodium Chloride 1,000 ml @ 1,000 mls/hr 1X ONCE IV Last administered on 11/28/18at 11:04; Start 11/28/18 at 11:00; Stop 11/28/18 at 11:59; Status DC Vancomycin HCl 1.5 gm/Sodium Chloride 500 ml @ 250 mls/hr 1X ONCE IV Last administered on 11/28/18at 11:31; Start 11/28/18 at 11:15; Stop 11/28/18 at 13:14; Status DC Sodium Chloride 1,000 ml @ 125 mls/hr 1X ONCE IV Last administered on 9at 12:28; Start 11/28/18 at 12:15; Stop 11/28/18 at 20:14; Status DC Ondansetron HCl (Zofran) 4 mg PRN Q8HRS PRN IV NAUSEA/VOMITING; Start 11/28/18 at 12:30; Stop 11/29/18 at 12:29 Morphine Sulfate (Morphine Sulfate) 2 mg PRN Q2HR PRN IV PAIN; Start 11/28/18 at 12:30; Stop 11/29/18 at 12:29 Sodium Chloride 1,000 ml @ 0 mls/hr Q0M IV ; Start 11/28/18 at 12:29; Stop 11/29/18 at 12:28 Acetaminophen (Tylenol) 650 mg PRN Q4HRS PRN PO FEVER Last administered on 11/29/18at 01:07; Start 11/28/18 at 12:30; Stop 11/29/18 at 12:29 Sodium Chloride 1,000 ml @ 125 mls/hr 1X ONCE IV Last administered on 11/28/18at 12:30; Start 11/28/18 at 12:30; Stop 11/28/18 at 20:29; Status DC Vancomycin HCl 1 gm/Sodium Chloride 250 ml @ 250 mls/hr Q24H IV ; Start 11/29/18 at 11:30 Vancomycin HCl (Vancomycin Trough Level) 1 each 1X ONCE MC ; Start 11/30/18 at 11:00; Stop 11/30/18 at 11:01 Ceftriaxone Sodium (Rocephin) 2 gm Q24H IVP Last administered on 11/29/18at 08:19; Start 11/29/18 at 07:00 Sodium Chloride 500 ml @ 500 mls/hr 1X ONCE IV Last administered on 11/29/18at 07:29; Start 11/29/18 at 07:30; Stop 11/29/18 at 08:29; Status DC Lactobacillus Rhamnosus (Culturelle) 1 cap BID PO ; Start 11/29/18 at 21:00 Active Scripts Active Reported Tamiflu (Oseltamivir Phosphate) 30 Mg Capsule 30 Mg PO DAILY Vitals/I & O Vital Sign - Last 24 Hours 11/28/18 11/28/18 11/28/18 11/28/18 10:20 10:35 10:45 10:50 Pulse 108 102 106 100 Resp 18 18 16 16 B/P (MAP) 76/49 (58) 72/49 (57) 79/50 (60) 74/52 (59) Pulse Ox 96 95 95 95 O2 Delivery Room Air 11/28/18 11/28/18 11/28/18 11/28/18 11:00 11:11 11:26 11:41 Pulse 100 94 96 Resp 16 16 16 B/P (MAP) 78/50 (59) 80/53 (62) 78/53 (61) 80/51 (61) Pulse Ox 95 96 96 O2 Delivery Room Air 511/28/18 11/28/18 11/28/18 11:56 12:09 12:11 12:26 Temp 98.9 98.9 Pulse 92 92 92 92 Resp 16 16 16 16 B/P (MAP) 80/54 (63) 81/51 (61) 79/52 (61) 79/54 (62) Pulse Ox 96 95 96 94 O2 Delivery Room Air 11/28/18 11/28/18 11/28/18 11/28/18 12:41 13:11 13:26 13:41 Pulse 84 86 80 80 Resp 16 16 16 16 B/P (MAP) 82/54 (63) 88/57 (67) 81/53 (62) 86/55 (65) Pulse Ox 96 97 97 97 O2 Delivery Room Air Room Air 11/28/18 11/28/18 11/28/18 11/28/18 14:25 15:59 17:08 18:00 Temp 98.6 98.6 98.6 98.6 Pulse 78 78 84 84 Resp 16 B/P (MAP) 82/59 (67) 91/62 (72) 93/62 (72) 93/62 (72) Pulse Ox 96 96 96 96 O2 Delivery Room Air 11/28/18 11/28/18 11/28/18 11/28/18 19:00 20:00 20:00 21:00 Temp 98.3 98.3 Pulse 74 78 94 Resp 23 23 23 B/P (MAP) 83/58 (66) 97/63 (74) 83/57 (66) Pulse Ox 96 94 96 O2 Delivery Room Air Room Air Room Air Room Air 11/28/18 11/28/18 11/28/18 11/29/18 22:00 23:00 23:59 00:36 Temp 98.7 98.7 Pulse 82 84 80 Resp 23 23 16 B/P (MAP) 90/62 (71) 90/56 (67) 86/56 (66) Pulse Ox 98 98 98 O2 Delivery Room Air Room Air Room Air Room Air 11/29/18 11/29/18 11/29/18 11/29/18 01:00 02:00 03:00 04:00 Pulse 84 78 74 Resp 23 12 12 B/P (MAP) 91/66 (74) 81/52 (62) 80/50 (60) Pulse Ox 98 98 92 O2 Delivery Room Air Room Air Room Air Room Air 11/29/18 11/29/18 11/29/18 11/29/18 04:00 05:00 06:05 08:00 Temp 98.3 98.3 Pulse 84 74 72 Resp 18 18 12 B/P (MAP) 85/56 (66) 80/43 (55) 82/59 (67) Pulse Ox 92 98 98 O2 Delivery Room Air Room Air Room Air Room Air Intake and Output 11/28/18 11/28/18 11/29/18 14:59 22:59 06:59 Intake Total 2940 ml 1400 ml 2400 ml Balance 2940 ml 1400 ml 2400 ml ELISABETH ROBERTS MD November 29, 2018 10:19
[2018-11-29 10:38] LABS: INFLUENZA A PATIENT NEGATIVE (NEGATIVE); INFLUENZA B PATIENT NEGATIVE (NEGATIVE)
[2018-11-29] MEDS ORDERED: 0.9 % SODIUM CHLORIDE 10 ML DISP.SYRIN. IV PRN (11:15)
[2018-11-29] MEDS ORDERED: NOREPINEPHRIN 8MG/250ML PREMIX 250 ML IV PRN (11:15)
[2018-11-29] MEDS ORDERED: VANCOMYCIN 1 GM in IV NORMAL SALINE 250ML 250 ML IV SCH (11:30)
[2018-11-29] MEDS ORDERED: HYDROCORTISONE SOD SUCC/PF 100 MG/2 ML VIAL. IV ONE (11:45)
--- NOTE | 2018-11-29 11:45 | NUR ---
IP: Pt had a + influenza test on Tuesday, 11/27. Current is negative, however pt has been on Tamiflu. Pt to be in droplet for total of 5 days from onset and 24 hours without a fever, whichever is longest. pt also on contact precautions pending mrsa screen.
--- NOTE | 2018-11-29 12:52 | PDOC2 ---
CARDIAC CONSULT DATE OF CONSULT Date of Consult DATE: 11/29/18 TIME: 12:41 REASON FOR CONSULT Reason for Consult: Hypotensive shock REFERRING PHYSICIAN Referring Physician: Dr. Greer SOURCE Source: Chart review, Patient HISTORY OF PRESENT ILLNESS HISTORY OF PRESENT ILLNESS This is a 58 yo female who presented with multiple complaints including fevers, left flank pain, body aches, nausea/vomiting. Went to PCP Tuesday, was reportedly positives for influenza A and was treated. Patient continued to have nausea/vomiting so she came to the ED for further evaluation and treatment. Initial labs with leukocytosis, lactic acidosis, TATIANA. UA + for UTI. Was hypotensive, which prompted this consult. BC + for GNR. Troponin was checked today and mildly elevated at 0.115. Patient denies any chest pain, palpitations, diaphoresis, or SOA. [place] slightly lightheaded this am. No prior h/o CAD. Patient feeling better today. Blood pressure better s/p IVFs. PAST MEDICAL HISTORY Cardiovascular: Hyperlipidemia Pulmonary: No pertinent hx CENTRAL NERVOUS SYSTEM: Other (no pertinent hx) GI: GERD Heme/Onc: No pertinent hx, Cancer (cervical ) Hepatobiliary: No pertinent hx Psych: No pertinent hx Musculoskeletal: Other (no pertinent hx) Rheumatologic: No pertinent hx Infectious disease: No pertinent hx ENT: No pertinent hx Renal/: No pertinent hx Endocrine: No pertinent hx Dermatology: No pertinent hx PAST SURGICAL HISTORY Past Surgical History: Hysterectomy (partial) FAMILY HISTORY Family History: Heart Disease, High Cholestrol, Stroke SOCIAL HISTORY Smoke: No ALCOHOL: none Drugs: None Lives: Alone CURRENT MEDICATIONS CURRENT MEDICATIONS Current Medications Medications (Trade) Dose Ordered Sig/Ella Route PRN Reason Start Time Stop Time Status Last Admin Dose Admin Vancomycin HCl 1 gm/Sodium Chloride 250 ml @ 250 mls/hr Q24H IV 11/29/18 11:30 11/29/18 11:58 Ceftriaxone Sodium (Rocephin) 2 gm Q24H IVP 11/29/18 07:00 11/29/18 08:19 Sodium Chloride 500 ml @ 500 mls/hr 1X ONCE IV 11/29/18 07:30 11/29/18 08:29 DC 11/29/18 07:29 Hydrocortisone Sodium Succinate (Solu-CORTEF) 100 mg 1X ONCE IV 11/29/18 11:45 11/29/18 11:46 DC 11/29/18 11:59 ALLERGIES ALLERGIES: Coded Allergies: No Known Drug Allergies (Unverified , 11/28/18) ROS Review of System 14 point ROS conducted with pertinent positives noted above in HPI PHYSICAL EXAM General: Alert, Oriented X3, Cooperative, No acute distress HEENT: Atraumatic Lungs: Clear to auscultation, Normal air movement Heart: Regular rate, Normal S1, Normal S2 Abdomen: Soft, No tenderness Extremities: No edema, Normal pulses Skin: No breakdown, No significant lesion Neuro: Normal speech, Sensation intact Psych/Mental Status: Mental status NL, Mood NL MUSCULOSKELETAL: No deformity VITALS VITALS Vital Signs Date Time Temp Pulse Resp B/P (MAP) Pulse Ox O2 Delivery O2 Flow Rate FiO2 11/29/18 12:12 98.9 82 20 101/71 (81) 95 Room Air 98.9 LABS Lab: Laboratory Tests Test 11/28/18 14:20 11/29/18 03:45 11/29/18 09:30 11/29/18 11:40 Lactic Acid Level 1.5 mmol/L (0.4-2.0) White Blood Count 9.1 x10^3/uL (4.0-11.0) Red Blood Count 3.64 x10^6/uL (3.50-5.40) Hemoglobin 10.3 g/dL (12.0-15.5) Hematocrit 31.5 % (36.0-47.0) Mean Corpuscular Volume 86 fL (79-100) Mean Corpuscular Hemoglobin 28 pg (25-35) Mean Corpuscular Hemoglobin Concent 33 g/dL (31-37) Red Cell Distribution Width 14.8 % (11.5-14.5) Platelet Count 87 x10^3/uL (140-400) Neutrophils (%) (Auto) 79 % (31-73) Lymphocytes (%) (Auto) 11 % (24-48) Monocytes (%) (Auto) 8 % (0-9) Eosinophils (%) (Auto) 1 % (0-3) Basophils (%) (Auto) 0 % (0-3) Neutrophils # (Auto) 7.2 x10^3uL (1.8-7.7) Lymphocytes # (Auto) 1.0 x10^3/uL (1.0-4.8) Monocytes # (Auto) 0.7 x10^3/uL (0.0-1.1) Eosinophils # (Auto) 0.1 x10^3/uL (0.0-0.7) Basophils # (Auto) 0.0 x10^3/uL (0.0-0.2) Sodium Level 144 mmol/L (136-145) Potassium Level 3.7 mmol/L (3.5-5.1) Chloride Level 112 mmol/L (98-107) Carbon Dioxide Level 22 mmol/L (21-32) Anion Gap 10 (6-14) Blood Urea Nitrogen 19 mg/dL (7-20) Creatinine 1.0 mg/dL (0.6-1.0) Estimated GFR (Cockcroft-Gault) 56.7 BUN/Creatinine Ratio 19 (6-20) Glucose Level 102 mg/dL (70-99) Calcium Level 8.1 mg/dL (8.5-10.1) Total Bilirubin 0.7 mg/dL (0.2-1.0) Aspartate Amino Transf (AST/SGOT) 171 U/L (15-37) Alanine Aminotransferase (ALT/SGPT) 157 U/L (14-59) Alkaline Phosphatase 185 U/L (46-116) Total Protein 5.3 g/dL (6.4-8.2) Albumin 1.8 g/dL (3.4-5.0) Albumin/Globulin Ratio 0.5 (1.0-1.7) Procalcitonin 21.14 ng/mL (0.00-0.10) Influenza Type A Antigen Negative (NEGATIVE) Influenza Type B Antigen Negative (NEGATIVE) Troponin I Quantitative 0.115 ng/mL (0.000-0.055) Test 11/29/18 12:00 Lactic Acid Level 0.9 mmol/L (0.4-2.0) ASSESSMENT/PLAN ASSESSMENT/PLAN 1. Fevers, myalgia, N/V, flank pain 2. Leukocytosis, lactic acidosis, sepsis 3. UTI, bacteremia. BC + GNR. ID following 4. Hypotension; secondary to above. better with IVFs 5. TATIANA; improved 6. Elevated LFTs 7. Mild troponin elevation; initial 0.1 8. Hyperlipidemia 9. Hypokalemia; resolved Recommendations Check Mg- replace as warranted Echo to assess LV systolic function Lipid panel Pressor support as warranted Antibiotics as per IC/PCP Supportive care Continue ELAINE TAMAYO APRN November 29, 2018 12:52
[2018-11-29 13:02] LABS: PROTHROMBIN TIME PATIENT 14.9 SEC (11.7-14.0)
[2018-11-29 13:04] LABS: D-DIMER 3.54 ug/mlFEU (0.00-0.50)
[2018-11-29 13:56] LABS: CHOLESTEROL/HDL RATIO 19.3
--- NOTE | 2018-11-29 14:31 | CARD ---
MR#: [id number] Date of Study: 11/29/2018 Ordering Physician: ELISABETH ROBERTS, Referring Physician: JOSE JAY Tech: Giovanna Almonte MARLENE APPROVED REPORT EXAM: Two-dimensional and M-mode echocardiogram with Doppler and color Doppler. Other Information Quality : GoodHR: 75bpm Rhythm : NSR INDICATION HYPOTENSION 2D DIMENSIONS RVDd2.3 (2.9-3.5cm)Left Atrium(2D)4.0 (1.6-4.0cm) IVSd1.0 (0.7-1.1cm)Aortic Root(2D)2.9 (2.0-3.7cm) LVDd4.7 (3.9-5.9cm)LVOT Diameter2.0 (1.8-2.4cm) PWd1.0 (0.7-1.1cm)LVDs3.1 (2.5-4.0cm) FS (%) 34.7 %SV65.7 ml M-Mode DIMENSIONS Left Atrium(MM)4.00 (2.5-4.0cm)Aortic Root3.11 (2.2-3.7cm) Aortic Valve AoV Peak Mat.141.0cm/sAoV VTI29.7cm AO Peak GR.8.0mmHgLVOT Peak Mat.99.3cm/s AO Mean GR.4mmHgAVA (VMAX)2.12cm2 SUAD (VTI)2.20cm2 Mitral Valve MV E Xhtktrew64.5cm/sMV DECEL [id number] MV A Rgwlnpjr74.6cm/sE/A Ratio1.7 MV A Fczuczez730lz Pulmonary Valve PV Peak Wzrkpugb046.8cm/s Tricuspid Valve TR P. Ittdwplx380ab/sRAP SASWPVXR91frYd TR Peak Gr.61kaZdPRXJ57glMa LEFT VENTRICLE The left ventricle is normal size. There is normal left ventricular wall thickness. The left ventricu lar systolic function is normal and the ejection fraction is within normal range. The Ejection Fracti on is 55-60%. There is normal LV segmental wall motion. Transmitral Doppler flow pattern is Grade II- pseudonormal filling dynamics. RIGHT VENTRICLE The right ventricle is normal size. There is normal right ventricular wall thickness. The right ventr icular systolic function is normal. ATRIA The left atrium is mildly dilated. The right atrium is moderately dilated. The interatrial septum is intact with no evidence for an atrial septal defect or patent foramen ovale as noted on 2-D or Dopple r imaging. AORTIC VALVE The aortic valve is calcified but opens well. The aortic valve is trileaflet. Doppler and Color Flow revealed no significant aortic regurgitation. There is no significant aortic valvular stenosis. MITRAL VALVE The mitral valve is normal in structure and function. There is no evidence of mitral valve prolapse. There is no mitral valve stenosis. Doppler and Color-flow revealed moderate to possibly moderately se kiet mitral regurgitation. TRICUSPID VALVE The tricuspid valve is normal in structure and function. Doppler and Color Flow revealed mild tricusp id regurgitation. The PA pressure was estimated at 40 mmHg. There is no tricuspid valve prolapse or v egetation. There is no tricuspid valve stenosis. PULMONIC VALVE The pulmonic valve is not well visualized. GREAT VESSELS The aortic root is normal in size. The ascending aorta is normal in size. The IVC is dilated and andrew apses <50% with inspiration. PERICARDIAL EFFUSION There is no evidence of significant pericardial effusion. Critical Notification Critical Value: No <Conclusion> The left ventricle is normal size. The left ventricular systolic function is normal and the ejection fraction is within normal range. The Ejection Fraction is 55-60%. There is no significant aortic valvular stenosis. Doppler and Color Flow revealed no significant aortic regurgitation. Doppler and Color-flow revealed moderate to possibly moderately severe mitral regurgitation. Doppler and Color Flow revealed mild tricuspid regurgitation. The PA pressure was estimated at 40 mmHg. Signed by : Franklin Lipscomb MD Electronically Approved : 11/29/2018 14:31:47
--- NOTE | 2018-11-29 14:41 | NUR ---
Wound Care: Patient seen per wound care consult. See wound assessment. Patient has abrasion to midline lower back. Wound cleansed and assessed. Recommendations for contact layer and foam dressing. Dressing applied and patient tolerated well. No other wounds noted upon completed head to toe assessment. Dressing change instructions left in room. Patient repositioned in bed. Spoke with RN regarding POC. Bed lowered and call light in reach. Will follow regarding wound care. Addendum: 11/29/18 at 1455 by STACIE VALVERDE RN Wrong patient. This note was not attended for this patient. Please disregard.
--- NOTE | 2018-11-29 15:08 | RAD ---
Renal ultrasound, 11/29/2018: HISTORY: Acute renal failure, UTI, pyelonephritis The right kidney measures 12.7 cm in length while the left kidney measures 15.6 cm. The right renal collecting system is unremarkable. There is moderate hydronephrosis on the left. No renal mass is seen. The urinary bladder is at the upper limits of normal in size. It is otherwise unremarkable. IMPRESSION: 1. Moderate left hydronephrosis. 2. No right renal abnormality is detected.. Electronically signed by: Eren Dominguez MD (11/29/2018 3:05 PM) [facility]
--- NOTE | 2018-11-29 15:35 | NUR ---
SS following for discharge planning. SS reviewed pt chart. Pt is from home and is currently on room air. No discharge needs noted at this time. SS will continue to follow for discharge planning.
--- NOTE | 2018-11-29 16:04 | RAD ---
Single view abdomen dated 11/29/2018. Comparison made to renal ultrasound dated 11/29/2018. Clinical data indication: Stone. Hydronephrosis. FINDINGS: Single supine view of the abdomen show small calcific densities in the left upper quadrant projected over the splenic flexure. There is also a calcific density at the mid to lower left abdomen the level of L4-L5 laterally. No definite calcific stone along the course of the left ureter. No calcific stone on the right. There surgical clips at the bilateral hemipelvis. Calcific rounded foci in the right pelvis likely phleboliths. IMPRESSION: No plain film evidence of the renal or ureteral stone. There are couple of calcifications on the left that are most likely outside of the expected location of the left kidney or left ureter. If indicated, CT would better evaluate. Electronically signed by: Fransisco Solomon MD (11/29/2018 4:01 PM) [id number]
--- NOTE | 2018-11-29 17:17 | PDOC2 ---
UROLOGY CONSULT Date of Admission DATE: 11/29/18 TIME: 17:12 Reason for Consult: left hydro uti 2days of fever, low BP, and left side and back pain. AF during stay, ucx and bcx with GNR KUB w no obvious stones, MERON with left renal unit enlargement and mod hydro. No obvious stones. No report of GH, no pain in this encounter, feels very well today. Prio uti was 20-30 years ago. ROS ROS: RESPIRATORY: Shortness of breath denies. Cough denies. UROLOGY: Denies blood in urine. Denies difficulty urinating Past Surgical History: , Hysterectomy Current Medications Current Medications Sodium Chloride 1,000 ml @ 1,440 mls/hr Q42M IV Last administered on 11/28/18at 10:40; Start 11/28/18 at 10:45; Stop 11/28/18 at 11:45; Status DC Ketorolac Tromethamine (Toradol 30mg Vial) 30 mg 1X ONCE IV Last administered on 11/28/18at 10:41; Start 11/28/18 at 10:45; Stop 11/28/18 at 10:46; Status DC Ondansetron HCl (Zofran) 4 mg 1X ONCE IV Last administered on 11/28/18at 10:41; Start 11/28/18 at 10:45; Stop 11/28/18 at 10:46; Status DC Ondansetron HCl (Zofran) 4 mg STK-MED ONCE .ROUTE ; Start 11/28/18 at 10:36; Stop 11/28/18 at 10:37; Status DC Ketorolac Tromethamine (Toradol 30mg Vial) 30 mg STK-MED ONCE .ROUTE ; Start 11/28/18 at 10:36; Stop 11/28/18 at 10:37; Status DC Vancomycin HCl (Vanco Per Pharmacy) 1 each PRN DAILY PRN MC SEE COMMENTS Last administered on 11/29/18at 09:52; Start 11/28/18 at 11:00 Cefepime HCl (Maxipime) 1 gm 1X ONCE IVP Last administered on 11/28/18at 11:26; Start 11/28/18 at 11:15; Stop 11/28/18 at 11:16; Status DC Sodium Chloride 1,000 ml @ 1,000 mls/hr 1X ONCE IV Last administered on 11/28/18at 11:04; Start 11/28/18 at 11:00; Stop 11/28/18 at 11:59; Status DC Vancomycin HCl 1.5 gm/Sodium Chloride 500 ml @ 250 mls/hr 1X ONCE IV Last administered on 11/28/18at 11:31; Start 11/28/18 at 11:15; Stop 11/28/18 at 13:14; Status DC Sodium Chloride 1,000 ml @ 125 mls/hr 1X ONCE IV Last administered on 11/28/18at 12:28; Start 11/28/18 at 12:15; Stop 11/28/18 at 20:14; Status DC Ondansetron HCl (Zofran) 4 mg PRN Q8HRS PRN IV NAUSEA/VOMITING; Start 11/28/18 at 12:30; Stop 11/29/18 at 12:29; Status DC Morphine Sulfate (Morphine Sulfate) 2 mg PRN Q2HR PRN IV PAIN; Start 11/28/18 at 12:30; Stop 11/29/18 at 12:29; Status DC Sodium Chloride 1,000 ml @ 0 mls/hr Q0M IV ; Start 11/28/18 at 12:29; Stop 11/29/18 at 12:28; Status DC Acetaminophen (Tylenol) 650 mg PRN Q4HRS PRN PO FEVER Last administered on 11/29/18at 01:07; Start 11/28/18 at 12:30; Stop 11/29/18 at 12:29; Status DC Sodium Chloride 1,000 ml @ 125 mls/hr 1X ONCE IV Last administered on 11/28/18at 12:30; Start 11/28/18 at 12:30; Stop 11/28/18 at 20:29; Status DC Vancomycin HCl 1 gm/Sodium Chloride 250 ml @ 250 mls/hr Q24H IV Last administered on 11/29/18at 11:58; Start 11/29/18 at 11:30 Vancomycin HCl (Vancomycin Trough Level) 1 each 1X ONCE MC ; Start 11/30/18 at 11:00; Stop 11/30/18 at 11:01 Ceftriaxone Sodium (Rocephin) 2 gm Q24H IVP Last administered on 11/29/18at 08:19; Start 11/29/18 at 07:00 Sodium Chloride 500 ml @ 500 mls/hr 1X ONCE IV Last administered on 11/29/18at 07:29; Start 11/29/18 at 07:30; Stop 11/29/18 at 08:29; Status DC Lactobacillus Rhamnosus (Culturelle) 1 cap BID PO ; Start 11/29/18 at 21:00 Hydrocortisone Sodium Succinate (Solu-CORTEF) 100 mg 1X ONCE IV Last administered on 11/29/18at 11:59; Start 11/29/18 at 11:45; Stop 11/29/18 at 11:46; Status DC Sodium Chloride (Normal Saline Flush) 10 ml QSHIFT PRN IV AFTER MEDS AND BLOOD DRAWS; Start 11/29/18 at 11:15 Norepinephrine Bitartrate 250 ml @ 0 mls/hr CONT PRN IV PER PROTOCOL Last administered on 11/29/18at 14:05; Start 11/29/18 at 11:15 Active Scripts Active Reported Tamiflu (Oseltamivir Phosphate) 30 Mg Capsule 30 Mg PO DAILY Allergies: Coded Allergies: No Known Drug Allergies (Unverified , 11/28/18) Physical Examination PHYSICAL EXAMINATION: GENERAL: Gen. appearance: No acute distress. Mood/affect: Pleasant. HEENT: Head: Normocephalic, atraumatic. Airway Impairment: No. CHEST: Shape and expansion: Normal. Expansion: Normal. SKIN: General: Warm. Color: Good. GENITOURINARY:External genitalia - wnl. NEUROLOGICAL: Mental status: Alert and oriented 3. Language: Normal. VITALS Vital Signs Date Time Temp Pulse Resp B/P (MAP) Pulse Ox O2 Delivery O2 Flow Rate FiO2 11/29/18 12:12 98.9 82 20 101/71 (81) 95 Room Air 98.9 Labs Laboratory Tests Test 11/28/18 09:55 11/28/18 10:12 11/28/18 14:20 11/28/18 16:30 Urine Collection Type Unknown Urine Color Yellow Urine Clarity Turbid Urine pH 6.0 Urine Specific [place] 1.020 Urine Protein 100 mg/dL (NEG-TRACE) Urine Glucose (UA) Negative mg/dL (NEG) Urine Ketones (Stick) Trace mg/dL (NEG) Urine Blood Moderate (NEG) Urine Nitrite Negative (NEG) Urine Bilirubin Negative (NEG) Urine Urobilinogen Dipstick 1.0 mg/dL (0.2 mg/dL) Urine Leukocyte Esterase Large (NEG) Urine RBC 0 /HPF (0-2) Urine WBC Tntc /HPF (0-4) Urine Squamous Epithelial Cells Mod /LPF Urine Bacteria Few /HPF (0-FEW) White Blood Count 13.0 x10^3/uL (4.0-11.0) Red Blood Count 4.16 x10^6/uL (3.50-5.40) Hemoglobin 11.9 g/dL (12.0-15.5) Hematocrit 35.4 % (36.0-47.0) Mean Corpuscular Volume 85 fL (79-100) Mean Corpuscular Hemoglobin 29 pg (25-35) Mean Corpuscular Hemoglobin Concent 34 g/dL (31-37) Red Cell Distribution Width 14.2 % (11.5-14.5) Platelet Count 107 x10^3/uL (140-400) Neutrophils (%) (Auto) 96 % (31-73) Lymphocytes (%) (Auto) 2 % (24-48) Monocytes (%) (Auto) 1 % (0-9) Eosinophils (%) (Auto) 1 % (0-3) Basophils (%) (Auto) 0 % (0-3) Neutrophils # (Auto) 12.5 x10^3uL (1.8-7.7) Lymphocytes # (Auto) 0.2 x10^3/uL (1.0-4.8) Monocytes # (Auto) 0.1 x10^3/uL (0.0-1.1) Eosinophils # (Auto) 0.2 x10^3/uL (0.0-0.7) Basophils # (Auto) 0.0 x10^3/uL (0.0-0.2) Segmented Neutrophils % 81 % (35-66) Band Neutrophils % 13 % (0-9) Lymphocytes % 3 % (24-48) Monocytes % 3 % (0-10) Toxic Granulation Present Toxic Vacuolation Mod Dohle Bodies Present Platelet Estimate Decreased (ADEQUATE) Large Platelets Present Prothrombin Time 14.5 SEC (11.7-14.0) Prothromb Time International Ratio 1.2 (0.8-1.1) Activated Partial Thromboplast Time 33 SEC (24-38) Sodium Level 136 mmol/L (136-145) Potassium Level 3.4 mmol/L (3.5-5.1) Chloride Level 100 mmol/L (98-107) Carbon Dioxide Level 22 mmol/L (21-32) Anion Gap 14 (6-14) Blood Urea Nitrogen 32 mg/dL (7-20) Creatinine 1.6 mg/dL (0.6-1.0) Estimated GFR (Cockcroft-Gault) 33.0 BUN/Creatinine Ratio 20 (6-20) Glucose Level 132 mg/dL (70-99) Lactic Acid Level 3.3 mmol/L (0.4-2.0) 1.5 mmol/L (0.4-2.0) Calcium Level 9.1 mg/dL (8.5-10.1) Total Bilirubin 1.0 mg/dL (0.2-1.0) Aspartate Amino Transf (AST/SGOT) 43 U/L (15-37) Alanine Aminotransferase (ALT/SGPT) 43 U/L (14-59) Alkaline Phosphatase 329 U/L (46-116) Total Protein 6.5 g/dL (6.4-8.2) Albumin 2.5 g/dL (3.4-5.0) Albumin/Globulin Ratio 0.6 (1.0-1.7) Lipase 73 U/L (73-393) Nasal Screen MRSA (PCR) Negative (Negative) Test 11/29/18 03:45 11/29/18 09:30 11/29/18 11:40 11/29/18 12:00 White Blood Count 9.1 x10^3/uL (4.0-11.0) Red Blood Count 3.64 x10^6/uL (3.50-5.40) Hemoglobin 10.3 g/dL (12.0-15.5) Hematocrit 31.5 % (36.0-47.0) Mean Corpuscular Volume 86 fL (79-100) Mean Corpuscular Hemoglobin 28 pg (25-35) Mean Corpuscular Hemoglobin Concent 33 g/dL (31-37) Red Cell Distribution Width 14.8 % (11.5-14.5) Platelet Count 87 x10^3/uL (140-400) Neutrophils (%) (Auto) 79 % (31-73) Lymphocytes (%) (Auto) 11 % (24-48) Monocytes (%) (Auto) 8 % (0-9) Eosinophils (%) (Auto) 1 % (0-3) Basophils (%) (Auto) 0 % (0-3) Neutrophils # (Auto) 7.2 x10^3uL (1.8-7.7) Lymphocytes # (Auto) 1.0 x10^3/uL (1.0-4.8) Monocytes # (Auto) 0.7 x10^3/uL (0.0-1.1) Eosinophils # (Auto) 0.1 x10^3/uL (0.0-0.7) Basophils # (Auto) 0.0 x10^3/uL (0.0-0.2) Sodium Level 144 mmol/L (136-145) Potassium Level 3.7 mmol/L (3.5-5.1) Chloride Level 112 mmol/L (98-107) Carbon Dioxide Level 22 mmol/L (21-32) Anion Gap 10 (6-14) Blood Urea Nitrogen 19 mg/dL (7-20) Creatinine 1.0 mg/dL (0.6-1.0) Estimated GFR (Cockcroft-Gault) 56.7 BUN/Creatinine Ratio 19 (6-20) Glucose Level 102 mg/dL (70-99) Calcium Level 8.1 mg/dL (8.5-10.1) Total Bilirubin 0.7 mg/dL (0.2-1.0) Aspartate Amino Transf (AST/SGOT) 171 U/L (15-37) Alanine Aminotransferase (ALT/SGPT) 157 U/L (14-59) Alkaline Phosphatase 185 U/L (46-116) Total Protein 5.3 g/dL (6.4-8.2) Albumin 1.8 g/dL (3.4-5.0) Albumin/Globulin Ratio 0.5 (1.0-1.7) Triglycerides Level 354 mg/dL (0-150) Cholesterol Level 135 mg/dL (0-200) LDL Cholesterol, Calculated 57 mg/dL (0-100) VLDL Cholesterol, Calculated 71 mg/dL (0-40) Non-HDL Cholesterol Calculated 128 mg/dL (0-129) HDL Cholesterol 7 mg/dL (40-60) Cholesterol/HDL Ratio 19.3 Procalcitonin 21.14 ng/mL (0.00-0.10) Influenza Type A Antigen Negative (NEGATIVE) Influenza Type B Antigen Negative (NEGATIVE) Prothrombin Time 14.9 SEC (11.7-14.0) Prothromb Time International Ratio 1.2 (0.8-1.1) Activated Partial Thromboplast Time 29 SEC (24-38) Fibrinogen 798 mg/dL (200-440) D-Dimer (Catherine) 3.54 ug/mlFEU (0.00-0.50) Magnesium Level 1.9 mg/dL (1.8-2.4) Troponin I Quantitative 0.115 ng/mL (0.000-0.055) Lactic Acid Level 0.9 mmol/L (0.4-2.0) Laboratory Tests Test 11/29/18 03:45 11/29/18 09:30 11/29/18 11:40 11/29/18 12:00 White Blood Count 9.1 x10^3/uL (4.0-11.0) Red Blood Count 3.64 x10^6/uL (3.50-5.40) Hemoglobin 10.3 g/dL (12.0-15.5) Hematocrit 31.5 % (36.0-47.0) Mean Corpuscular Volume 86 fL (79-100) Mean Corpuscular Hemoglobin 28 pg (25-35) Mean Corpuscular Hemoglobin Concent 33 g/dL (31-37) Red Cell Distribution Width 14.8 % (11.5-14.5) Platelet Count 87 x10^3/uL (140-400) Neutrophils (%) (Auto) 79 % (31-73) Lymphocytes (%) (Auto) 11 % (24-48) Monocytes (%) (Auto) 8 % (0-9) Eosinophils (%) (Auto) 1 % (0-3) Basophils (%) (Auto) 0 % (0-3) Neutrophils # (Auto) 7.2 x10^3uL (1.8-7.7) Lymphocytes # (Auto) 1.0 x10^3/uL (1.0-4.8) Monocytes # (Auto) 0.7 x10^3/uL (0.0-1.1) Eosinophils # (Auto) 0.1 x10^3/uL (0.0-0.7) Basophils # (Auto) 0.0 x10^3/uL (0.0-0.2) Sodium Level 144 mmol/L (136-145) Potassium Level 3.7 mmol/L (3.5-5.1) Chloride Level 112 mmol/L (98-107) Carbon Dioxide Level 22 mmol/L (21-32) Anion Gap 10 (6-14) Blood Urea Nitrogen 19 mg/dL (7-20) Creatinine 1.0 mg/dL (0.6-1.0) Estimated GFR (Cockcroft-Gault) 56.7 BUN/Creatinine Ratio 19 (6-20) Glucose Level 102 mg/dL (70-99) Calcium Level 8.1 mg/dL (8.5-10.1) Total Bilirubin 0.7 mg/dL (0.2-1.0) Aspartate Amino Transf (AST/SGOT) 171 U/L (15-37) Alanine Aminotransferase (ALT/SGPT) 157 U/L (14-59) Alkaline Phosphatase 185 U/L (46-116) Total Protein 5.3 g/dL (6.4-8.2) Albumin 1.8 g/dL (3.4-5.0) Albumin/Globulin Ratio 0.5 (1.0-1.7) Triglycerides Level 354 mg/dL (0-150) Cholesterol Level 135 mg/dL (0-200) LDL Cholesterol, Calculated 57 mg/dL (0-100) VLDL Cholesterol, Calculated 71 mg/dL (0-40) Non-HDL Cholesterol Calculated 128 mg/dL (0-129) HDL Cholesterol 7 mg/dL (40-60) Cholesterol/HDL Ratio 19.3 Procalcitonin 21.14 ng/mL (0.00-0.10) Influenza Type A Antigen Negative (NEGATIVE) Influenza Type B Antigen Negative (NEGATIVE) Prothrombin Time 14.9 SEC (11.7-14.0) Prothromb Time International Ratio 1.2 (0.8-1.1) Activated Partial Thromboplast Time 29 SEC (24-38) Fibrinogen 798 mg/dL (200-440) D-Dimer (Catherine) 3.54 ug/mlFEU (0.00-0.50) Magnesium Level 1.9 mg/dL (1.8-2.4) Troponin I Quantitative 0.115 ng/mL (0.000-0.055) Lactic Acid Level 0.9 mmol/L (0.4-2.0) Assessment/Plan Left pyelo. gnr bacteremia, most likely Gu origin. claude. agree w HD support , iv abx. recommend CT a/p to r/o obstruction. She does not look septic today on exam fortunately. fu uop , cr trend Will fu . Past Medical History Past Medical History: No Pertinent History, UTI Past Surgical History: Hysterectomy Additional Past Surgical Histo: Alcohol Use: None Drug Use: None NELLY ESPINO MD November 29, 2018 17:17
--- NOTE | 2018-11-29 18:41 | RAD ---
CT scan of the abdomen and pelvis without contrast 11/29/2018 CLINICAL HISTORY: Acute renal failure. UTI. Pyelonephritis. Moderate hydronephrosis seen on the left collecting system on ultrasound. TECHNIQUE: Unenhanced, contiguous, 2 mm axial sections were obtained through the abdomen and pelvis. One or more of the following individualized dose reduction techniques were utilized for this study: 1. Automated exposure control. 2. Adjustment of the mA and/or kV according to patient size. 3. Use of iterative reconstruction technique. FINDINGS: Comparison is made to the patient's renal ultrasound performed earlier today. Images through the lung bases demonstrate mild cardiomegaly. Areas of atelectasis and or infiltrate are seen involving both lower lobes. There are very small bilateral pleural effusions. The liver measures 17.8 cm in length. Decreased attenuation of the liver parenchyma is seen consistent with fatty infiltration. The spleen, pancreas and adrenal glands are within normal limits. No abnormality of the right kidney is seen. The left kidney is enlarged. Mild to moderate dilatation of the left intrarenal collecting system is seen. The left kidney is rotated laterally to the left. Nonobstructing calculi are seen involving the superior pole of the left kidney. These measure 5 mm to 9 mm in size. A 6 mm left UPJ calculus is seen which is causing mild to moderate obstruction of the left collecting system. Atherosclerotic calcification of the abdominal aorta is seen. The abdominal aorta tapers normally. The gallbladder is distended. No free fluid or free air is seen within the abdomen. There is no evidence of bowel obstruction. Images through the pelvis demonstrate the urinary bladder distended with urine. Surgical clips are seen along the pelvic sidewall. Calcifications are seen within the pelvis consistent with phleboliths. A [id number] amount of free fluid is seen within the pelvis. Very mild S-shaped curvature of the thoracolumbar spine is seen. Degenerative changes are seen involving the thoracic and throughout the lumbar spine and both hips. IMPRESSION: 6 mm left UPJ calculus is seen which is causing mild to moderate obstruction of the left collecting system. Electronically signed by: Mustapha Ball MD (11/29/2018 6:38 PM) [facility]
[2018-11-29] MEDS: IV NORMAL SALINE 1000ML BAG 1,000 ML IV SCH (19:00)
[2018-11-29] MEDS ORDERED: TAMSULOSIN 0.4 MG CAP.ER.24H. PO ONE (19:45)
--- NOTE | 2018-11-29 19:50 | CONS ---
DATE OF CONSULTATION: 11/29/2018 PATIENT'S ROOM: 102. REQUESTING PHYSICIAN: Dr. Wilson. REASON FOR CONSULTATION: Sepsis. HISTORY OF PRESENT ILLNESS: The patient is a pleasant 58-year-old female without significant past medical history who states last Tuesday, she went to a . On Tuesday evening, she then went to a cheondoism and while waiting in her car she had some left-sided CVA tenderness. After the cheondoism, she went to bed, but of upon awakening she felt ill. She had fevers. She felt weak. She had nausea and vomiting. She had occasional loose stool and her urine became dark and had a significant odor. She also felt somewhat bloated. She denies any sore throat. No gross cough or sinus congestion. She went to see her primary physician, Dr. Therese Elizondo on Tuesday, the . Apparently, she had a flu screen that was positive and was prescribed Tamiflu. After taking some the Tamiflu, she was unable to tolerate this. She had nausea, vomiting, subsequently, presented to [facility] on the . On arrival, she had a blood pressure of 73/43. She has not been febrile. Her white blood cell count was 13 with 13% bands. Creatinine was 1.6. Cultures obtained. She has been placed on vancomycin. She also received a dose of cefepime. This morning, the patient is feeling better and she is hoping that she will be able to be discharged soon. Her urine has cleared up some. PAST MEDICAL HISTORY: She does have a history of cervical cancer. PAST SURGICAL HISTORY: Positive for as well as a cervical cancer surgery that was successful. She has not had any chemotherapy or radiation. REVIEW OF SYSTEMS: Otherwise negative. ALLERGIES: No known drug allergies. SOCIAL HISTORY: She quit smoking in 2002. She has social alcohol. 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 FAMILY HISTORY: Positive for hypertension. CURRENT MEDICATIONS: Include vancomycin, cefepime x 1 and she received Toradol. Other meds are available and I have reviewed in the chart. PHYSICAL EXAMINATION: VITAL SIGNS: She has been afebrile, current temperature is 98.3, pulse 72, respirations 12, blood pressure 82/59, satting 98% on room air. CONSTITUTIONAL: She is very pleasant. She is cooperative. She is in no acute distress. HEENT: Her pupils are equal. It appears she may have some early cataracts. She has normal conjunctivae. Oral cavity, pharynx was clear. NECK: Supple, no JVD. LUNGS: Clear to auscultation. No wheeze, no rhonchi. HEART: S1, S2. ABDOMEN: Soft, nontender, nondistended, no guarding, no rebound. She has no CVA tenderness. EXTREMITIES: Without clubbing or cyanosis. No gross edema. SKIN: Warm to touch without signs of rash. NEUROLOGIC: She is nonfocal. PSYCHIATRIC: Affect is pleasant. LABORATORY VALUES: This morning: White count 9.1, hemoglobin 10.3, platelets of 87, neutrophils are 79. Creatinine is improved to 1. Glucose 102. AST 171, up from 43; ALT 157, up from 43; alkaline phosphatase 185, down from 329. Lipase was 73. Urinalysis, too numerous to count wbc's, moderate squamous cells, large leukocyte esterase, nitrite negative, few bacteria. Chest x-ray, no acute pulmonary process. IMPRESSION: 1. Sepsis present on admission. 2. Bandemia. 3. Questionable urinary tract infection present on admission 11/28/2018. 4. Reported influenza. 5. Transaminitis, questionable secondary to hypertension. 7. Acute kidney injury. 8. Feels better. RECOMMENDATIONS: For now, we will continue vancomycin. We will add Rocephin. We will add influenza screen. We will follow up cultures. Obtain laboratory values in the a.m. including CBC, BMP liver tests. This was discussed with nursing. Thank you for asking us to participate in this patient's care. If you have any questions, please do not hesitate to contact me. MIKA LICONA MD DR: SABAS/kennedy JOB#: [id number] / [id number]
[2018-11-29] MEDS: LACTOBACILLUS RHAMNOSUS GG 1 CAPSULE. PO SCH (20:54)
[2018-11-30] VITALS (22 sets, daily range): BP systolic 86–183; BP diastolic 53–83
[2018-11-30] MEDS: IV NORMAL SALINE 1000ML BAG 1,000 ML IV SCH ×2 (00:19→08:15)
[2018-11-30 05:27] LABS: BASO % 1 % (0-3); EOS # 0.1 x10^3/uL (0.0-0.7); EOS % 1 % (0-3); HEMATOCRIT 30.4 % (36.0-47.0); HEMOGLOBIN 10.1 g/dL (12.0-15.5); LYMPH # 1.7 x10^3/uL (1.0-4.8); LYMPH % 18 % (24-48); MEAN CORPUSCULAR HEMOGLOBIN 29 pg (25-35); MEAN CORPUSCULAR HGB CONC 33 g/dL (31-37); MEAN CORPUSCULAR VOLUME 86 fL (79-100); MONO % 11 % (0-9); NEUT # 6.2 x10^3uL (1.8-7.7); NEUT % 69 % (31-73); PLATELET COUNT 93 x10^3/uL (140-400); RED BLOOD COUNT 3.53 x10^6/uL (3.50-5.40); RED CELL DISTRIBUTION WIDTH 14.9 % (11.5-14.5)
[2018-11-30 06:10] LABS: ALBUMIN 1.7 g/dL (3.4-5.0); ALBUMIN/GLOBULIN RATIO 0.5 (1.0-1.7); CALCIUM 8.3 mg/dL (8.5-10.1); CREATININE 0.7 mg/dL (0.6-1.0); DIRECT BILIRUBIN 0.2 mg/dL (0.0-0.2); GFR 85.6; POTASSIUM 3.5 mmol/L (3.5-5.1); TOTAL BILIRUBIN 0.3 mg/dL (0.2-1.0); TOTAL PROTEIN 5.3 g/dL (6.4-8.2)
[2018-11-30] MEDS: cefTRIAXone IV Push 2 GM VIAL. IVP SCH (06:37)
--- NOTE | 2018-11-30 06:57 | PDOC ---
Infectious Disease Note Subjective Subjective Feeling much better. Ate well. No pain No F/C/S/N/V/D/SOA/Rash Wants to eat and drink but is NPO ROS ROS o/w neg Vital Sign Vital Signs Vital Signs Date Time Temp Pulse Resp B/P (MAP) Pulse Ox O2 Delivery O2 Flow Rate FiO2 11/30/18 06:00 63 20 105/65 (78) 98 Room Air 11/30/18 04:00 98.2 98.2 Physical Exam PHYSICAL EXAM CONSTITUTIONAL: She is very pleasant. She is cooperative. She is in no acute distress. In bed HEENT: Her pupils are equal. It appears she may have some early cataracts. She has normal conjunctivae. Oral cavity, pharynx was clear. NECK: Supple, no JVD. LUNGS: Clear to auscultation. No wheeze, no rhonchi. HEART: S1, S2. ABDOMEN: Soft, nontender, nondistended, no guarding, no rebound. She has no CVA tenderness. EXTREMITIES: Without clubbing or cyanosis. No gross edema. SKIN: Warm to touch without signs of rash. NEUROLOGIC: She is nonfocal. PSYCHIATRIC: Affect is pleasant Labs Lab Laboratory Tests Test 11/29/18 09:30 11/29/18 11:40 11/29/18 12:00 11/30/18 04:30 Influenza Type A Antigen Negative (NEGATIVE) Influenza Type B Antigen Negative (NEGATIVE) Prothrombin Time 14.9 SEC (11.7-14.0) Prothromb Time International Ratio 1.2 (0.8-1.1) Activated Partial Thromboplast Time 29 SEC (24-38) Fibrinogen 798 mg/dL (200-440) D-Dimer (Catherine) 3.54 ug/mlFEU (0.00-0.50) Magnesium Level 1.9 mg/dL (1.8-2.4) Troponin I Quantitative 0.115 ng/mL (0.000-0.055) Lactic Acid Level 0.9 mmol/L (0.4-2.0) White Blood Count 9.0 x10^3/uL (4.0-11.0) Red Blood Count 3.53 x10^6/uL (3.50-5.40) Hemoglobin 10.1 g/dL (12.0-15.5) Hematocrit 30.4 % (36.0-47.0) Mean Corpuscular Volume 86 fL (79-100) Mean Corpuscular Hemoglobin 29 pg (25-35) Mean Corpuscular Hemoglobin Concent 33 g/dL (31-37) Red Cell Distribution Width 14.9 % (11.5-14.5) Platelet Count 93 x10^3/uL (140-400) Neutrophils (%) (Auto) 69 % (31-73) Lymphocytes (%) (Auto) 18 % (24-48) Monocytes (%) (Auto) 11 % (0-9) Eosinophils (%) (Auto) 1 % (0-3) Basophils (%) (Auto) 1 % (0-3) Neutrophils # (Auto) 6.2 x10^3uL (1.8-7.7) Lymphocytes # (Auto) 1.7 x10^3/uL (1.0-4.8) Monocytes # (Auto) 1.0 x10^3/uL (0.0-1.1) Eosinophils # (Auto) 0.1 x10^3/uL (0.0-0.7) Basophils # (Auto) 0.0 x10^3/uL (0.0-0.2) Sodium Level 146 mmol/L (136-145) Potassium Level 3.5 mmol/L (3.5-5.1) Chloride Level 113 mmol/L (98-107) Carbon Dioxide Level 22 mmol/L (21-32) Anion Gap 11 (6-14) Blood Urea Nitrogen 16 mg/dL (7-20) Creatinine 0.7 mg/dL (0.6-1.0) Estimated GFR (Cockcroft-Gault) 85.6 BUN/Creatinine Ratio 23 (6-20) Glucose Level 88 mg/dL (70-99) Calcium Level 8.3 mg/dL (8.5-10.1) Total Bilirubin 0.3 mg/dL (0.2-1.0) Direct Bilirubin 0.2 mg/dL (0.0-0.2) Aspartate Amino Transf (AST/SGOT) 138 U/L (15-37) Alanine Aminotransferase (ALT/SGPT) 170 U/L (14-59) Alkaline Phosphatase 209 U/L (46-116) Total Protein 5.3 g/dL (6.4-8.2) Albumin 1.7 g/dL (3.4-5.0) Albumin/Globulin Ratio 0.5 (1.0-1.7) Micro CT IMPRESSION: 6 mm left UPJ calculus is seen which is causing mild to moderate obstruction of the left collecting system. Ecoli UTI Microbiology 11/28/18 Blood Culture - Final, Complete 11/28/18 Urine Culture - Preliminary, Resulted 11/28/18 Urine Culture Result 1 (MARGARITA) - Preliminary, Resulted Objective Assessment Sepsis - POA - better - looks well. Off pressors Renal stone on left. Ordered U/S 11/29- then KUB and Urology consult 11/29 Bandemia Ecoli UTI - POA 11/28 reported influenza - neg here Transaminitis - ? sec to hypotension TATIANA - better Plan Plan of Care Discont Vanc/trough Cont Rocephin/ F/u cults Labs in am - CBC/CMP D/w nursing MIKA LICONA MD November 30, 2018 06:57
[2018-11-30] MEDS: LACTOBACILLUS RHAMNOSUS GG 1 CAPSULE. PO SCH ×2 (08:09→20:53)
[2018-11-30] MEDS: TAMSULOSIN 0.4 MG CAP.ER.24H. PO SCH (08:09)
--- NOTE | 2018-11-30 08:55 | PDOC ---
PROGRESS NOTES History of Present Illness History of Present Illness History of Present Illness: HPI: Patient is a pleasant middle-aged female who presented with the above chief complaints Rated at 10 out 10 she has associated nausea occurring for several days describes as agonizing Ino the ER we checked her urine she has a UTI and probable sepsis she's hypotensive and tachycardic ICU Past Medical/Surgical History: PMH/PSH: Hysterectomy and Allergies: Allergies: Coded Allergies: No Known Drug Allergies (Unverified , 11/28/18) Family History: Family History: Hypertension Social History: Social Hisoty: She doesn't drink smoke or take drugs Assessment/Plan UTI with sepsis GRAM NEGATIVE RODS IN 2 OF 4 BOTTLES hypotension tachycardia fever CKD stage 2-3 6 mm left UPJ calculus is seen which is causing mild to moderate obstruction of the left collecting system. transaminitis, shock liver moderate to possibly moderately severe mitral regurgitation. mild tricuspid regurgitation. The PA pressure was estimated at 40 mmHg. elevated troponin i Plan treat uti before URS w laser/stone extraction. recommend increased IVF to 125ml/h, flomax , strain urine. IV antibiotics IV fluids DVT prophylaxis full code home meds frequent labs ID consult iv Vanc iv Rocephin/levophed echo urology consult 37 min cc time repeat blood cult x 2 11/29 Vitals Vitals Vital Signs Date Time Temp Pulse Resp B/P (MAP) Pulse Ox O2 Delivery O2 Flow Rate FiO2 11/30/18 08:00 Room Air 11/30/18 07:16 100 11/30/18 06:00 63 20 105/65 (78) 11/30/18 04:00 98.2 98.2 Physical Exam Physical Exam CONSTITUTIONAL: She is very pleasant. She is cooperative. She is in no acute distress. In bed HEENT: Her pupils are equal. It appears she may have some early cataracts. She has normal conjunctivae. Oral cavity, pharynx was clear. NECK: Supple, no JVD. LUNGS: Clear to auscultation. No wheeze, no rhonchi. HEART: S1, S2. ABDOMEN: Soft, nontender, nondistended, no guarding, no rebound. She has no CVA tenderness. EXTREMITIES: Without clubbing or cyanosis. No gross edema. SKIN: Warm to touch without signs of rash. NEUROLOGIC: She is nonfocal. PSYCHIATRIC: Affect is pleasant General: Alert, Oriented X3, Cooperative, No acute distress, mild distress Heart: Regular rate, Normal S1, Normal S2 Lungs: Clear Abdomen: Normal bowel sounds, Soft, No tenderness, No hepatosplenomegaly Extremities: No edema, Normal pulses Skin: No breakdown, No significant lesion Labs LABS PATIENT: BHUPINDER EDWARD ACCT: [id number] LOC: 1 [facility] ICU U: [id number] AGE/SX: 58/F ROOM: [facility] RE11/28/[address]: JOSE JAY III, DO : 1960 BED: 1 DIS: STATUS: ADM IN TLOC: SPEC #: [id number] ALISA: 11/29/181150 STATUS: COMP REQ #: [id number] RECD: 11/29/181205 SUBM DR: ELISABETH ROBERTS MD SOURCE: BLOOD ENTR: 11/29/18-[address]: JOSE JAY III, DO SPDESC: SEJAL DELEON MD, SAMIR R MD ORDERED: BCULT Procedure Result ----- BLOOD CULTURE Final GRAM NEGATIVE RODS, IN 3 OF 4 BOTTLES, TWO SETS DRAWN ON 11/29/18 CALLED TO KAMI POE RN IN ICU AT 9:15 ON 11/30/18 DW MT SENT TO [employer] FOR FURTHER WORKUP. One or more of the following individualized dose reduction techniques were utilized for this study: 1. Automated exposure control. 2. Adjustment of the mA and/or kV according to patient size. 3. Use of iterative reconstruction technique. FINDINGS: Comparison is made to the patient's renal ultrasound performed earlier today. Images through the lung bases demonstrate mild cardiomegaly. Areas of atelectasis and or infiltrate are seen involving both lower lobes. There are very small bilateral pleural effusions. The liver measures 17.8 cm in length. Decreased attenuation of the liver parenchyma is seen consistent with fatty infiltration. The spleen, pancreas and adrenal glands are within normal limits. No abnormality of the right kidney is seen. The left kidney is enlarged. Mild to moderate dilatation of the left intrarenal collecting system is seen. The left kidney is rotated laterally to the left. Nonobstructing calculi are seen involving the superior pole of the left kidney. These measure 5 mm to 9 mm in size. A 6 mm left UPJ calculus is seen which is causing mild to moderate obstruction of the left collecting system. Atherosclerotic calcification of the abdominal aorta is seen. The abdominal aorta tapers normally. The gallbladder is distended. No free fluid or free air is seen within the abdomen. There is no evidence of bowel obstruction. Images through the pelvis demonstrate the urinary bladder distended with urine. Surgical clips are seen along the pelvic sidewall. Calcifications are seen within the pelvis consistent with phleboliths. A [id number] amount of free fluid is seen within the pelvis. Very mild S-shaped curvature of the thoracolumbar spine is seen. Degenerative changes are seen involving the thoracic and throughout the lumbar spine and both hips. IMPRESSION: One or more of the following individualized dose reduction techniques were utilized for this study: 1. Automated exposure control. 2. Adjustment of the mA and/or kV according to patient size. 3. Use of iterative reconstruction technique. FINDINGS: Comparison is made to the patient's renal ultrasound performed earlier today. Images through the lung bases demonstrate mild cardiomegaly. Areas of atelectasis and or infiltrate are seen involving both lower lobes. There are very small bilateral pleural effusions. The liver measures 17.8 cm in length. Decreased attenuation of the liver parenchyma is seen consistent with fatty infiltration. The spleen, pancreas and adrenal glands are within normal limits. No abnormality of the right kidney is seen. The left kidney is enlarged. Mild to moderate dilatation of the left intrarenal collecting system is seen. The left kidney is rotated laterally to the left. Nonobstructing calculi are seen involving the superior pole of the left kidney. These measure 5 mm to 9 mm in size. A 6 mm left UPJ calculus is seen which is causing mild to moderate obstruction of the left collecting system. Atherosclerotic calcification of the abdominal aorta is seen. The abdominal aorta tapers normally. The gallbladder is distended. No free fluid or free air is seen within the abdomen. There is no evidence of bowel obstruction. Images through the pelvis demonstrate the urinary bladder distended with urine. Surgical clips are seen along the pelvic sidewall. Calcifications are seen within the pelvis consistent with phleboliths. A gbbvq-ld-flvecnut amount of free fluid is seen within the pelvis. Very mild S-shaped curvature of the thoracolumbar spine is seen. Degenerative changes are seen involving the thoracic and throughout the lumbar spine and both hips. IMPRESSION: 6 mm left UPJ calculus is seen which is causing mild to moderate obstruction of the left collecting system. Electronically signed by: Mustapha Ball MD (11/29/2018 6:38 PM) [facility] Electronically signed by: Mustapha Ball MD (11/29/2018 6:38 PM) [facility] LEFT VENTRICLE The left ventricle is normal size. There is normal left ventricular wall thickness. The left ventricular systolic function is normal and the ejection fraction is within normal range. The Ejection Fraction is 55-60%. There is normal LV segmental wall motion. Transmitral Doppler flow pattern is Grade II-pseudonormal filling dynamics. RIGHT VENTRICLE The right ventricle is normal size. There is normal right ventricular wall thickness. The right ventricular systolic function is normal. ATRIA The left atrium is mildly dilated. The right atrium is moderately dilated. The interatrial septum is intact with no evidence for an atrial septal defect or patent foramen ovale as noted on 2-D or Doppler imaging. AORTIC VALVE The aortic valve is calcified but opens well. The aortic valve is trileaflet. Doppler and Color Flow revealed no significant aortic regurgitation. There is no significant aortic valvular stenosis. MITRAL VALVE The mitral valve is normal in structure and function. There is no evidence of mitral valve prolapse. There is no mitral valve stenosis. Doppler and Color-flow revealed moderate to possibly moderately severe mitral regurgitation. TRICUSPID VALVE The tricuspid valve is normal in structure and function. Doppler and Color Flow revealed mild tricuspid regurgitation. The PA pressure was estimated at 40 mmHg. There is no tricuspid valve prolapse or vegetation. There is no tricuspid valve stenosis. PULMONIC VALVE The pulmonic valve is not well visualized. GREAT VESSELS The aortic root is normal in size. The ascending aorta is normal in size. The IVC is dilated and collapses <50% with inspiration. PERICARDIAL EFFUSION There is no evidence of significant pericardial effusion. Critical Notification Critical Value: No <Conclusion> The left ventricle is normal size. The left ventricular systolic function is normal and the ejection fraction is within normal range. The Ejection Fraction is 55-60%. There is no significant aortic valvular stenosis. Doppler and Color Flow revealed no significant aortic regurgitation. Doppler and Color-flow revealed moderate to possibly moderately severe mitral regurgitation. Doppler and Color Flow revealed mild tricuspid regurgitation. The PA pressure was estimated at 40 mmHg. Signed by : Chidi Lipscomb MD Electronically Approved : 11/29/2018 14:31:47 DICTATED and SIGNED BY: CHIDI LIPSCOMB MD DATE: 11/29/18 1436 Laboratory Tests Test 11/29/18 09:30 11/29/18 11:40 11/29/18 12:00 11/30/18 04:30 Influenza Type A Antigen Negative (NEGATIVE) Influenza Type B Antigen Negative (NEGATIVE) Prothrombin Time 14.9 SEC (11.7-14.0) Prothromb Time International Ratio 1.2 (0.8-1.1) Activated Partial Thromboplast Time 29 SEC (24-38) Fibrinogen 798 mg/dL (200-440) D-Dimer (Catherine) 3.54 ug/mlFEU (0.00-0.50) Magnesium Level 1.9 mg/dL (1.8-2.4) Troponin I Quantitative 0.115 ng/mL (0.000-0.055) Lactic Acid Level 0.9 mmol/L (0.4-2.0) White Blood Count 9.0 x10^3/uL (4.0-11.0) Red Blood Count 3.53 x10^6/uL (3.50-5.40) Hemoglobin 10.1 g/dL (12.0-15.5) Hematocrit 30.4 % (36.0-47.0) Mean Corpuscular Volume 86 fL (79-100) Mean Corpuscular Hemoglobin 29 pg (25-35) Mean Corpuscular Hemoglobin Concent 33 g/dL (31-37) Red Cell Distribution Width 14.9 % (11.5-14.5) Platelet Count 93 x10^3/uL (140-400) Neutrophils (%) (Auto) 69 % (31-73) Lymphocytes (%) (Auto) 18 % (24-48) Monocytes (%) (Auto) 11 % (0-9) Eosinophils (%) (Auto) 1 % (0-3) Basophils (%) (Auto) 1 % (0-3) Neutrophils # (Auto) 6.2 x10^3uL (1.8-7.7) Lymphocytes # (Auto) 1.7 x10^3/uL (1.0-4.8) Monocytes # (Auto) 1.0 x10^3/uL (0.0-1.1) Eosinophils # (Auto) 0.1 x10^3/uL (0.0-0.7) Basophils # (Auto) 0.0 x10^3/uL (0.0-0.2) Sodium Level 146 mmol/L (136-145) Potassium Level 3.5 mmol/L (3.5-5.1) Chloride Level 113 mmol/L (98-107) Carbon Dioxide Level 22 mmol/L (21-32) Anion Gap 11 (6-14) Blood Urea Nitrogen 16 mg/dL (7-20) Creatinine 0.7 mg/dL (0.6-1.0) Estimated GFR (Cockcroft-Gault) 85.6 BUN/Creatinine Ratio 23 (6-20) Glucose Level 88 mg/dL (70-99) Calcium Level 8.3 mg/dL (8.5-10.1) Total Bilirubin 0.3 mg/dL (0.2-1.0) Direct Bilirubin 0.2 mg/dL (0.0-0.2) Aspartate Amino Transf (AST/SGOT) 138 U/L (15-37) Alanine Aminotransferase (ALT/SGPT) 170 U/L (14-59) Alkaline Phosphatase 209 U/L (46-116) Total Protein 5.3 g/dL (6.4-8.2) Albumin 1.7 g/dL (3.4-5.0) Albumin/Globulin Ratio 0.5 (1.0-1.7) Assessment and Plan Assessmemt and Plan Problems Medical Problems: (1) Acute renal failure Status: Acute (2) Hypoglycemia Status: Acute (3) Hypotension Status: Acute (4) Septic shock Status: Acute (5) UTI (urinary tract infection) Status: Acute Comment Review of Relevant I have reviewed the following items chavez (where applicable) has been applied. Labs Laboratory Tests Test 11/28/18 09:55 11/28/18 10:12 11/28/18 14:20 11/28/18 16:30 Urine Collection Type Unknown Urine Color Yellow Urine Clarity Turbid Urine pH 6.0 Urine Specific Sterling 1.020 Urine Protein 100 mg/dL (NEG-TRACE) Urine Glucose (UA) Negative mg/dL (NEG) Urine Ketones (Stick) Trace mg/dL (NEG) Urine Blood Moderate (NEG) Urine Nitrite Negative (NEG) Urine Bilirubin Negative (NEG) Urine Urobilinogen Dipstick 1.0 mg/dL (0.2 mg/dL) Urine Leukocyte Esterase Large (NEG) Urine RBC 0 /HPF (0-2) Urine WBC Tntc /HPF (0-4) Urine Squamous Epithelial Cells Mod /LPF Urine Bacteria Few /HPF (0-FEW) White Blood Count 13.0 x10^3/uL (4.0-11.0) Red Blood Count 4.16 x10^6/uL (3.50-5.40) Hemoglobin 11.9 g/dL (12.0-15.5) Hematocrit 35.4 % (36.0-47.0) Mean Corpuscular Volume 85 fL (79-100) Mean Corpuscular Hemoglobin 29 pg (25-35) Mean Corpuscular Hemoglobin Concent 34 g/dL (31-37) Red Cell Distribution Width 14.2 % (11.5-14.5) Platelet Count 107 x10^3/uL (140-400) Neutrophils (%) (Auto) 96 % (31-73) Lymphocytes (%) (Auto) 2 % (24-48) Monocytes (%) (Auto) 1 % (0-9) Eosinophils (%) (Auto) 1 % (0-3) Basophils (%) (Auto) 0 % (0-3) Neutrophils # (Auto) 12.5 x10^3uL (1.8-7.7) Lymphocytes # (Auto) 0.2 x10^3/uL (1.0-4.8) Monocytes # (Auto) 0.1 x10^3/uL (0.0-1.1) Eosinophils # (Auto) 0.2 x10^3/uL (0.0-0.7) Basophils # (Auto) 0.0 x10^3/uL (0.0-0.2) Segmented Neutrophils % 81 % (35-66) Band Neutrophils % 13 % (0-9) Lymphocytes % 3 % (24-48) Monocytes % 3 % (0-10) Toxic Granulation Present Toxic Vacuolation Mod Dohle Bodies Present Platelet Estimate Decreased (ADEQUATE) Large Platelets Present Prothrombin Time 14.5 SEC (11.7-14.0) Prothromb Time International Ratio 1.2 (0.8-1.1) Activated Partial Thromboplast Time 33 SEC (24-38) Sodium Level 136 mmol/L (136-145) Potassium Level 3.4 mmol/L (3.5-5.1) Chloride Level 100 mmol/L (98-107) Carbon Dioxide Level 22 mmol/L (21-32) Anion Gap 14 (6-14) Blood Urea Nitrogen 32 mg/dL (7-20) Creatinine 1.6 mg/dL (0.6-1.0) Estimated GFR (Cockcroft-Gault) 33.0 BUN/Creatinine Ratio 20 (6-20) Glucose Level 132 mg/dL (70-99) Lactic Acid Level 3.3 mmol/L (0.4-2.0) 1.5 mmol/L (0.4-2.0) Calcium Level 9.1 mg/dL (8.5-10.1) Total Bilirubin 1.0 mg/dL (0.2-1.0) Aspartate Amino Transf (AST/SGOT) 43 U/L (15-37) Alanine Aminotransferase (ALT/SGPT) 43 U/L (14-59) Alkaline Phosphatase 329 U/L (46-116) Total Protein 6.5 g/dL (6.4-8.2) Albumin 2.5 g/dL (3.4-5.0) Albumin/Globulin Ratio 0.6 (1.0-1.7) Lipase 73 U/L (73-393) Nasal Screen MRSA (PCR) Negative (Negative) Test 11/29/18 03:45 11/29/18 09:30 11/29/18 11:40 11/29/18 12:00 White Blood Count 9.1 x10^3/uL (4.0-11.0) Red Blood Count 3.64 x10^6/uL (3.50-5.40) Hemoglobin 10.3 g/dL (12.0-15.5) Hematocrit 31.5 % (36.0-47.0) Mean Corpuscular Volume 86 fL (79-100) Mean Corpuscular Hemoglobin 28 pg (25-35) Mean Corpuscular Hemoglobin Concent 33 g/dL (31-37) Red Cell Distribution Width 14.8 % (11.5-14.5) Platelet Count 87 x10^3/uL (140-400) Neutrophils (%) (Auto) 79 % (31-73) Lymphocytes (%) (Auto) 11 % (24-48) Monocytes (%) (Auto) 8 % (0-9) Eosinophils (%) (Auto) 1 % (0-3) Basophils (%) (Auto) 0 % (0-3) Neutrophils # (Auto) 7.2 x10^3uL (1.8-7.7) Lymphocytes # (Auto) 1.0 x10^3/uL (1.0-4.8) Monocytes # (Auto) 0.7 x10^3/uL (0.0-1.1) Eosinophils # (Auto) 0.1 x10^3/uL (0.0-0.7) Basophils # (Auto) 0.0 x10^3/uL (0.0-0.2) Sodium Level 144 mmol/L (136-145) Potassium Level 3.7 mmol/L (3.5-5.1) Chloride Level 112 mmol/L (98-107) Carbon Dioxide Level 22 mmol/L (21-32) Anion Gap 10 (6-14) Blood Urea Nitrogen 19 mg/dL (7-20) Creatinine 1.0 mg/dL (0.6-1.0) Estimated GFR (Cockcroft-Gault) 56.7 BUN/Creatinine Ratio 19 (6-20) Glucose Level 102 mg/dL (70-99) Calcium Level 8.1 mg/dL (8.5-10.1) Total Bilirubin 0.7 mg/dL (0.2-1.0) Aspartate Amino Transf (AST/SGOT) 171 U/L (15-37) Alanine Aminotransferase (ALT/SGPT) 157 U/L (14-59) Alkaline Phosphatase 185 U/L (46-116) Total Protein 5.3 g/dL (6.4-8.2) Albumin 1.8 g/dL (3.4-5.0) Albumin/Globulin Ratio 0.5 (1.0-1.7) Triglycerides Level 354 mg/dL (0-150) Cholesterol Level 135 mg/dL (0-200) LDL Cholesterol, Calculated 57 mg/dL (0-100) VLDL Cholesterol, Calculated 71 mg/dL (0-40) Non-HDL Cholesterol Calculated 128 mg/dL (0-129) HDL Cholesterol 7 mg/dL (40-60) Cholesterol/HDL Ratio 19.3 Procalcitonin 21.14 ng/mL (0.00-0.10) Influenza Type A Antigen Negative (NEGATIVE) Influenza Type B Antigen Negative (NEGATIVE) Prothrombin Time 14.9 SEC (11.7-14.0) Prothromb Time International Ratio 1.2 (0.8-1.1) Activated Partial Thromboplast Time 29 SEC (24-38) Fibrinogen 798 mg/dL (200-440) D-Dimer (Catherine) 3.54 ug/mlFEU (0.00-0.50) Magnesium Level 1.9 mg/dL (1.8-2.4) Troponin I Quantitative 0.115 ng/mL (0.000-0.055) Lactic Acid Level 0.9 mmol/L (0.4-2.0) Test 11/30/18 04:30 White Blood Count 9.0 x10^3/uL (4.0-11.0) Red Blood Count 3.53 x10^6/uL (3.50-5.40) Hemoglobin 10.1 g/dL (12.0-15.5) Hematocrit 30.4 % (36.0-47.0) Mean Corpuscular Volume 86 fL (79-100) Mean Corpuscular Hemoglobin 29 pg (25-35) Mean Corpuscular Hemoglobin Concent 33 g/dL (31-37) Red Cell Distribution Width 14.9 % (11.5-14.5) Platelet Count 93 x10^3/uL (140-400) Neutrophils (%) (Auto) 69 % (31-73) Lymphocytes (%) (Auto) 18 % (24-48) Monocytes (%) (Auto) 11 % (0-9) Eosinophils (%) (Auto) 1 % (0-3) Basophils (%) (Auto) 1 % (0-3) Neutrophils # (Auto) 6.2 x10^3uL (1.8-7.7) Lymphocytes # (Auto) 1.7 x10^3/uL (1.0-4.8) Monocytes # (Auto) 1.0 x10^3/uL (0.0-1.1) Eosinophils # (Auto) 0.1 x10^3/uL (0.0-0.7) Basophils # (Auto) 0.0 x10^3/uL (0.0-0.2) Sodium Level 146 mmol/L (136-145) Potassium Level 3.5 mmol/L (3.5-5.1) Chloride Level 113 mmol/L (98-107) Carbon Dioxide Level 22 mmol/L (21-32) Anion Gap 11 (6-14) Blood Urea Nitrogen 16 mg/dL (7-20) Creatinine 0.7 mg/dL (0.6-1.0) Estimated GFR (Cockcroft-Gault) 85.6 BUN/Creatinine Ratio 23 (6-20) Glucose Level 88 mg/dL (70-99) Calcium Level 8.3 mg/dL (8.5-10.1) Total Bilirubin 0.3 mg/dL (0.2-1.0) Direct Bilirubin 0.2 mg/dL (0.0-0.2) Aspartate Amino Transf (AST/SGOT) 138 U/L (15-37) Alanine Aminotransferase (ALT/SGPT) 170 U/L (14-59) Alkaline Phosphatase 209 U/L (46-116) Total Protein 5.3 g/dL (6.4-8.2) Albumin 1.7 g/dL (3.4-5.0) Albumin/Globulin Ratio 0.5 (1.0-1.7) Laboratory Tests Test 11/29/18 09:30 11/29/18 11:40 11/29/18 12:00 11/30/18 04:30 Influenza Type A Antigen Negative (NEGATIVE) Influenza Type B Antigen Negative (NEGATIVE) Prothrombin Time 14.9 SEC (11.7-14.0) Prothromb Time International Ratio 1.2 (0.8-1.1) Activated Partial Thromboplast Time 29 SEC (24-38) Fibrinogen 798 mg/dL (200-440) D-Dimer (Catherine) 3.54 ug/mlFEU (0.00-0.50) Magnesium Level 1.9 mg/dL (1.8-2.4) Troponin I Quantitative 0.115 ng/mL (0.000-0.055) Lactic Acid Level 0.9 mmol/L (0.4-2.0) White Blood Count 9.0 x10^3/uL (4.0-11.0) Red Blood Count 3.53 x10^6/uL (3.50-5.40) Hemoglobin 10.1 g/dL (12.0-15.5) Hematocrit 30.4 % (36.0-47.0) Mean Corpuscular Volume 86 fL (79-100) Mean Corpuscular Hemoglobin 29 pg (25-35) Mean Corpuscular Hemoglobin Concent 33 g/dL (31-37) Red Cell Distribution Width 14.9 % (11.5-14.5) Platelet Count 93 x10^3/uL (140-400) Neutrophils (%) (Auto) 69 % (31-73) Lymphocytes (%) (Auto) 18 % (24-48) Monocytes (%) (Auto) 11 % (0-9) Eosinophils (%) (Auto) 1 % (0-3) Basophils (%) (Auto) 1 % (0-3) Neutrophils # (Auto) 6.2 x10^3uL (1.8-7.7) Lymphocytes # (Auto) 1.7 x10^3/uL (1.0-4.8) Monocytes # (Auto) 1.0 x10^3/uL (0.0-1.1) Eosinophils # (Auto) 0.1 x10^3/uL (0.0-0.7) Basophils # (Auto) 0.0 x10^3/uL (0.0-0.2) Sodium Level 146 mmol/L (136-145) Potassium Level 3.5 mmol/L (3.5-5.1) Chloride Level 113 mmol/L (98-107) Carbon Dioxide Level 22 mmol/L (21-32) Anion Gap 11 (6-14) Blood Urea Nitrogen 16 mg/dL (7-20) Creatinine 0.7 mg/dL (0.6-1.0) Estimated GFR (Cockcroft-Gault) 85.6 BUN/Creatinine Ratio 23 (6-20) Glucose Level 88 mg/dL (70-99) Calcium Level 8.3 mg/dL (8.5-10.1) Total Bilirubin 0.3 mg/dL (0.2-1.0) Direct Bilirubin 0.2 mg/dL (0.0-0.2) Aspartate Amino Transf (AST/SGOT) 138 U/L (15-37) Alanine Aminotransferase (ALT/SGPT) 170 U/L (14-59) Alkaline Phosphatase 209 U/L (46-116) Total Protein 5.3 g/dL (6.4-8.2) Albumin 1.7 g/dL (3.4-5.0) Albumin/Globulin Ratio 0.5 (1.0-1.7) Microbiology 11/28/18 Blood Culture - Final, Complete 11/28/18 Urine Culture - Preliminary, Resulted 11/28/18 Urine Culture Result 1 (MARGARITA) - Preliminary, Resulted Medications Current Medications Sodium Chloride 1,000 ml @ 1,440 mls/hr Q42M IV Last administered on 11/28/18at 10:40; Start 11/28/18 at 10:45; Stop 11/28/18 at 11:45; Status DC Ketorolac Tromethamine (Toradol 30mg Vial) 30 mg 1X ONCE IV Last administered on 11/28/18at 10:41; Start 11/28/18 at 10:45; Stop 11/28/18 at 10:46; Status DC Ondansetron HCl (Zofran) 4 mg 1X ONCE IV Last administered on 11/28/18at 10:41; Start 11/28/18 at 10:45; Stop 11/28/18 at 10:46; Status DC Ondansetron HCl (Zofran) 4 mg STK-MED ONCE .ROUTE ; Start 11/28/18 at 10:36; Stop 11/28/18 at 10:37; Status DC Ketorolac Tromethamine (Toradol 30mg Vial) 30 mg STK-MED ONCE .ROUTE ; Start 11/28/18 at 10:36; Stop 11/28/18 at 10:37; Status DC Vancomycin HCl (Vanco Per Pharmacy) 1 each PRN DAILY PRN MC SEE COMMENTS Last administered on 11/29/18at 09:52; Start 11/28/18 at 11:00; Stop 11/30/18 at 07:25; Status DC Cefepime HCl (Maxipime) 1 gm 1X ONCE IVP Last administered on 11/28/18at 11:26; Start 11/28/18 at 11:15; Stop 11/28/18 at 11:16; Status DC Sodium Chloride 1,000 ml @ 1,000 mls/hr 1X ONCE IV Last administered on 11/28/18at 11:04; Start 11/28/18 at 11:00; Stop 11/28/18 at 11:59; Status DC Vancomycin HCl 1.5 gm/Sodium Chloride 500 ml @ 250 mls/hr 1X ONCE IV Last administered on 11/28/18at 11:31; Start 11/28/18 at 11:15; Stop 11/28/18 at 13:14; Status DC Sodium Chloride 1,000 ml @ 125 mls/hr 1X ONCE IV Last administered on 11/28/18at 12:28; Start 11/28/18 at 12:15; Stop 11/28/18 at 20:14; Status DC Ondansetron HCl (Zofran) 4 mg PRN Q8HRS PRN IV NAUSEA/VOMITING; Start 11/28/18 at 12:30; Stop 11/29/18 at 12:29; Status DC Morphine Sulfate (Morphine Sulfate) 2 mg PRN Q2HR PRN IV PAIN; Start 11/28/18 at 12:30; Stop 11/29/18 at 12:29; Status DC Sodium Chloride 1,000 ml @ 0 mls/hr Q0M IV ; Start 11/28/18 at 12:29; Stop 11/29/18 at 12:28; Status DC Acetaminophen (Tylenol) 650 mg PRN Q4HRS PRN PO FEVER Last administered on 11/29/18at 01:07; Start 11/28/18 at 12:30; Stop 11/29/18 at 12:29; Status DC Sodium Chloride 1,000 ml @ 125 mls/hr 1X ONCE IV Last administered on 11/28/18at 12:30; Start 11/28/18 at 12:30; Stop 11/28/18 at 20:29; Status DC Vancomycin HCl 1 gm/Sodium Chloride 250 ml @ 250 mls/hr Q24H IV Last administered on 11/29/18at 11:58; Start 11/29/18 at 11:30; Stop 11/30/18 at 07:25; Status DC Vancomycin HCl (Vancomycin Trough Level) 1 each 1X ONCE MC ; Start 11/30/18 at 11:00; Stop 11/30/18 at 11:00; Status DC Ceftriaxone Sodium (Rocephin) 2 gm Q24H IVP Last administered on 11/30/18at 06:37; Start 11/29/18 at 07:00 Sodium Chloride 500 ml @ 500 mls/hr 1X ONCE IV Last administered on 11/29/18at 07:29; Start 11/29/18 at 07:30; Stop 11/29/18 at 08:29; Status DC Lactobacillus Rhamnosus (Culturelle) 1 cap BID PO Last administered on 11/30/18at 08:09; Start 11/29/18 at 21:00 Hydrocortisone Sodium Succinate (Solu-CORTEF) 100 mg 1X ONCE IV Last administered on 11/29/18at 11:59; Start 11/29/18 at 11:45; Stop 11/29/18 at 11:46; Status DC Sodium Chloride (Normal Saline Flush) 10 ml QSHIFT PRN IV AFTER MEDS AND BLOOD DRAWS; Start 11/29/18 at 11:15 Norepinephrine Bitartrate 250 ml @ 0 mls/hr CONT PRN IV PER PROTOCOL Last administered on 11/29/18at 14:05; Start 11/29/18 at 11:15 Sodium Chloride 1,000 ml @ 125 mls/hr Q8H IV Last administered on 11/30/18at 08:15; Start 11/29/18 at 19:00 Tamsulosin HCl (Flomax) 0.4 mg 1X ONCE PO Last administered on 11/29/18at 20:07; Start 11/29/18 at 19:45; Stop 11/29/18 at 19:54; Status DC Tamsulosin HCl (Flomax) 0.4 mg DAILY PO Last administered on 11/30/18at 08:09; Start 11/30/18 at 09:00 Active Scripts Active Reported Tamiflu (Oseltamivir Phosphate) 30 Mg Capsule 30 Mg PO DAILY Vitals/I & O Vital Sign - Last 24 Hours 11/29/18 11/29/18 11/29/18 11/29/18 09:00 10:00 11:00 12:00 Temp 98.5 98.5 Pulse 72 70 70 Resp 17 25 20 B/P (MAP) 85/57 (66) 94/60 (71) 91/64 (73) Pulse Ox 95 94 95 O2 Delivery Room Air Room Air Room Air Room Air 11/29/18 11/29/18 11/29/18 11/29/18 12:12 13:00 14:00 15:00 Temp 98.9 98.9 Pulse 82 70 68 2 Resp 20 22 12 14 B/P (MAP) 101/71 (81) 98/71 (80) 82/60 (67) 138/81 (100) Pulse Ox 95 95 96 97 O2 Delivery Room Air Room Air Room Air Room Air 11/29/18 11/29/18 11/29/18 11/29/18 16:00 16:00 17:00 18:00 Temp 98.6 98.6 Pulse 60 54 58 Resp 22 13 23 B/P (MAP) 133/81 (98) 135/79 (97) 133/79 (97) Pulse Ox 96 95 100 O2 Delivery Room Air Room Air Room Air Room Air 511/29/18 11/29/18 11/29/18 19:00 19:30 20:00 20:00 Temp 98.9 98.9 Pulse 58 61 60 Resp 23 23 23 B/P (MAP) 133/79 (97) 119/75 (90) 115/74 (88) Pulse Ox 100 92 92 O2 Delivery Room Air Room Air Room Air Room Air 11/29/18 11/29/18 11/29/18 11/29/18 20:44 21:00 22:00 22:15 Pulse 65 59 62 62 Resp 19 16 18 18 B/P (MAP) 114/72 (86) 101/72 (82) 109/68 (82) 95/65 (75) Pulse Ox 92 98 96 96 O2 Delivery Room Air Room Air Room Air Room Air 11/29/18 11/29/18 11/29/18 11/30/18 23:00 23:59 23:59 01:00 Temp 98.9 98.9 Pulse 58 58 56 Resp 16 18 18 B/P (MAP) 106/64 (78) 102/64 (77) 103/65 (78) Pulse Ox 98 98 98 O2 Delivery Room Air Room Air Room Air Room Air 11/30/18 11/30/18 11/30/18 11/30/18 02:00 03:00 04:00 04:00 Temp 98.2 98.2 Pulse 58 57 57 Resp 18 18 18 B/P (MAP) 105/61 (76) 108/69 (82) 109/53 (71) Pulse Ox 96 94 94 O2 Delivery Room Air Room Air Room Air Room Air 11/30/18 11/30/18 11/30/18 11/30/18 05:00 06:00 07:16 08:00 Pulse 55 63 Resp 18 20 B/P (MAP) 101/55 (70) 105/65 (78) Pulse Ox 94 98 100 O2 Delivery Room Air Room Air Ventilator Room Air Intake and Output 11/29/18 11/29/18 11/30/18 15:00 23:00 07:00 Intake Total 2000 ml 1527 ml 972 ml Output Total 1205 ml 1600 ml 1800 ml Balance 795 ml -73 ml -828 ml ELISABETH ROBERTS MD November 30, 2018 08:55
--- NOTE | 2018-11-30 09:19 | PDOC ---
RUBI HANSON INTEGRITY SPECIALIST 11/30/18 0919: SUBJECTIVE Subjective Doing well, no pain or dysuria. Has been told she will probably move up to the floor later today. OBJECTIVE Objective Physical Exam: General appearance: Alert and Oriented, sitting up in chair Head: Normocephalic, without obvious abnormality Eyes: conjunctivae/corneas clear. PERRL, EOM's intact. Fundi benign Back: No CVA pain bilaterally Lungs:Regular respirations, non labored breathing Abdomen: soft, slight tenderness left lower quadrant, otherwise non-tender. . No masses, no organomegaly Pelvic: deferred Vital Signs Vital Signs Date Time Temp Pulse Resp B/P (MAP) Pulse Ox O2 Delivery O2 Flow Rate FiO2 11/30/18 08:00 Room Air 11/30/18 07:16 100 Ventilator 11/30/18 06:00 63 20 105/65 (78) 98 Room Air 11/30/18 05:00 55 18 101/55 (70) 94 Room Air 11/30/18 04:00 Room Air 11/30/18 04:00 98.2 57 18 109/53 (71) 94 Room Air 98.2 11/30/18 03:00 57 18 108/69 (82) 94 Room Air 11/30/18 02:00 58 18 105/61 (76) 96 Room Air 11/30/18 01:00 56 18 103/65 (78) 98 Room Air 11/29/18 23:59 Room Air 11/29/18 23:59 98.9 58 18 102/64 (77) 98 Room Air 98.9 11/29/18 23:00 58 16 106/64 (78) 98 Room Air 11/29/18 22:15 62 18 95/65 (75) 96 Room Air 11/29/18 22:00 62 18 109/68 (82) 96 Room Air 11/29/18 21:00 59 16 101/72 (82) 98 Room Air 11/29/18 20:44 65 19 114/72 (86) 92 Room Air 11/29/18 20:00 Room Air 11/29/18 20:00 98.9 60 23 115/74 (88) 92 Room Air 98.9 11/29/18 19:30 61 23 119/75 (90) 92 Room Air 11/29/18 19:00 58 23 133/79 (97) 100 Room Air 11/29/18 18:00 58 23 133/79 (97) 100 Room Air 11/29/18 17:00 54 13 135/79 (97) 95 Room Air 11/29/18 16:00 Room Air 11/29/18 16:00 98.6 60 22 133/81 (98) 96 Room Air 98.6 11/29/18 15:00 2 14 138/81 (100) 97 Room Air 11/29/18 14:00 68 12 82/60 (67) 96 Room Air 11/29/18 13:00 70 22 98/71 (80) 95 Room Air 11/29/18 12:12 98.9 82 20 101/71 (81) 95 Room Air 98.9 11/29/18 12:00 Room Air 11/29/18 11:00 70 20 91/64 (73) 95 Room Air 11/29/18 10:00 70 25 94/60 (71) 94 Room Air I & O Intake and Output 11/30/18 06:59 Intake Total 4499 ml Output Total 4605 ml Balance -106 ml Intake Oral 1550 ml IV Total 2949 ml Output Urine Total 4605 ml PHYSICAL EXAM Physical Exam Physical Exam: General appearance: Alert and Oriented, sitting up in chair Head: Normocephalic, without obvious abnormality Eyes: conjunctivae/corneas clear. PERRL, EOM's intact. Fundi benign Back: No CVA pain bilaterally Lungs:Regular respirations, non labored breathing Abdomen: soft, slight tenderness left lower quadrant, otherwise non-tender. . No masses, no organomegaly Pelvic: deferred ASSESSMENT/PLAN Assessment/Plan Only slight left lower quadrant pain with exam 2/10, otherwise doing well. WBC 9.0, SIEVE GRADER TENDER 0.7, BUN 16, Afebrile. Preferable to treat UTI prior to URS with cystoscopy. Repeat UA tomorrow. Continue Flomax, IVF Nursing continue to strain urine. Patient may eat today with NPO at midnight, will re-evaluate in the morning. Problems: (1) UTI (urinary tract infection) COMMENT Lab Laboratory Tests Test 11/29/18 09:30 11/29/18 11:40 11/29/18 12:00 11/30/18 04:30 Influenza Type A Antigen Negative (NEGATIVE) Influenza Type B Antigen Negative (NEGATIVE) Prothrombin Time 14.9 SEC (11.7-14.0) Prothromb Time International Ratio 1.2 (0.8-1.1) Activated Partial Thromboplast Time 29 SEC (24-38) Fibrinogen 798 mg/dL (200-440) D-Dimer (Catherine) 3.54 ug/mlFEU (0.00-0.50) Magnesium Level 1.9 mg/dL (1.8-2.4) Troponin I Quantitative 0.115 ng/mL (0.000-0.055) Lactic Acid Level 0.9 mmol/L (0.4-2.0) White Blood Count 9.0 x10^3/uL (4.0-11.0) Red Blood Count 3.53 x10^6/uL (3.50-5.40) Hemoglobin 10.1 g/dL (12.0-15.5) Hematocrit 30.4 % (36.0-47.0) Mean Corpuscular Volume 86 fL (79-100) Mean Corpuscular Hemoglobin 29 pg (25-35) Mean Corpuscular Hemoglobin Concent 33 g/dL (31-37) Red Cell Distribution Width 14.9 % (11.5-14.5) Platelet Count 93 x10^3/uL (140-400) Neutrophils (%) (Auto) 69 % (31-73) Lymphocytes (%) (Auto) 18 % (24-48) Monocytes (%) (Auto) 11 % (0-9) Eosinophils (%) (Auto) 1 % (0-3) Basophils (%) (Auto) 1 % (0-3) Neutrophils # (Auto) 6.2 x10^3uL (1.8-7.7) Lymphocytes # (Auto) 1.7 x10^3/uL (1.0-4.8) Monocytes # (Auto) 1.0 x10^3/uL (0.0-1.1) Eosinophils # (Auto) 0.1 x10^3/uL (0.0-0.7) Basophils # (Auto) 0.0 x10^3/uL (0.0-0.2) Sodium Level 146 mmol/L (136-145) Potassium Level 3.5 mmol/L (3.5-5.1) Chloride Level 113 mmol/L (98-107) Carbon Dioxide Level 22 mmol/L (21-32) Anion Gap 11 (6-14) Blood Urea Nitrogen 16 mg/dL (7-20) Creatinine 0.7 mg/dL (0.6-1.0) Estimated GFR (Cockcroft-Gault) 85.6 BUN/Creatinine Ratio 23 (6-20) Glucose Level 88 mg/dL (70-99) Calcium Level 8.3 mg/dL (8.5-10.1) Total Bilirubin 0.3 mg/dL (0.2-1.0) Direct Bilirubin 0.2 mg/dL (0.0-0.2) Aspartate Amino Transf (AST/SGOT) 138 U/L (15-37) Alanine Aminotransferase (ALT/SGPT) 170 U/L (14-59) Alkaline Phosphatase 209 U/L (46-116) Total Protein 5.3 g/dL (6.4-8.2) Albumin 1.7 g/dL (3.4-5.0) Albumin/Globulin Ratio 0.5 (1.0-1.7) CATHY DOTSON MD 11/30/18 1445: ASSESSMENT/PLAN Assessment/Plan Patient seen and examined. CT scan reviewed. Has urosepsis + 6 mm obstructing left ureter stone + nonobstructive left renal stone. Recommend prompt renal drainage with ureteral stent in OR later today. Risks / benefits of the procedure reviewed. She agrees to proceed. All questions answered. Plan for 2nd stage procedure in a few weeks after infection treated. Problem Qualifiers (1) UTI (urinary tract infection): Urinary tract infection type: site unspecified Hematuria presence: without hematuria Qualified Codes: N39.0 - Urinary tract infection, site not specified RUBI HANSON APRN November 30, 2018 09:19 CATHY DOTSON MD November 30, 2018 14:45
--- NOTE | 2018-11-30 11:38 | PDOC ---
CARDIO Progress Notes Date and Time Date of Service 11/30/18 Time of Evaluation 1130 Subjective Subjective: No Chest Pain, No shortness of breath, No Palpitations, No Dizziness Vitals Vitals Vital Signs Date Time Temp Pulse Resp B/P (MAP) Pulse Ox O2 Delivery O2 Flow Rate FiO2 11/30/18 11:00 64 21 86/54 (65) 96 Room Air 11/30/18 08:01 88.2 88.2 Weight Weight [ ] Input and Output Intake and Output Intake and Output 11/30/18 06:59 Intake Total 4499 ml Output Total 4605 ml Balance -106 ml Intake Oral 1550 ml IV Total 2949 ml Output Urine Total 4605 ml Laboratory Labs Laboratory Tests Test 11/29/18 11:40 11/29/18 12:00 11/30/18 04:30 Prothrombin Time 14.9 SEC (11.7-14.0) Prothromb Time International Ratio 1.2 (0.8-1.1) Activated Partial Thromboplast Time 29 SEC (24-38) Fibrinogen 798 mg/dL (200-440) D-Dimer (Catherine) 3.54 ug/mlFEU (0.00-0.50) Magnesium Level 1.9 mg/dL (1.8-2.4) Troponin I Quantitative 0.115 ng/mL (0.000-0.055) Lactic Acid Level 0.9 mmol/L (0.4-2.0) White Blood Count 9.0 x10^3/uL (4.0-11.0) Red Blood Count 3.53 x10^6/uL (3.50-5.40) Hemoglobin 10.1 g/dL (12.0-15.5) Hematocrit 30.4 % (36.0-47.0) Mean Corpuscular Volume 86 fL (79-100) Mean Corpuscular Hemoglobin 29 pg (25-35) Mean Corpuscular Hemoglobin Concent 33 g/dL (31-37) Red Cell Distribution Width 14.9 % (11.5-14.5) Platelet Count 93 x10^3/uL (140-400) Neutrophils (%) (Auto) 69 % (31-73) Lymphocytes (%) (Auto) 18 % (24-48) Monocytes (%) (Auto) 11 % (0-9) Eosinophils (%) (Auto) 1 % (0-3) Basophils (%) (Auto) 1 % (0-3) Neutrophils # (Auto) 6.2 x10^3uL (1.8-7.7) Lymphocytes # (Auto) 1.7 x10^3/uL (1.0-4.8) Monocytes # (Auto) 1.0 x10^3/uL (0.0-1.1) Eosinophils # (Auto) 0.1 x10^3/uL (0.0-0.7) Basophils # (Auto) 0.0 x10^3/uL (0.0-0.2) Sodium Level 146 mmol/L (136-145) Potassium Level 3.5 mmol/L (3.5-5.1) Chloride Level 113 mmol/L (98-107) Carbon Dioxide Level 22 mmol/L (21-32) Anion Gap 11 (6-14) Blood Urea Nitrogen 16 mg/dL (7-20) Creatinine 0.7 mg/dL (0.6-1.0) Estimated GFR (Cockcroft-Gault) 85.6 BUN/Creatinine Ratio 23 (6-20) Glucose Level 88 mg/dL (70-99) Calcium Level 8.3 mg/dL (8.5-10.1) Total Bilirubin 0.3 mg/dL (0.2-1.0) Direct Bilirubin 0.2 mg/dL (0.0-0.2) Aspartate Amino Transf (AST/SGOT) 138 U/L (15-37) Alanine Aminotransferase (ALT/SGPT) 170 U/L (14-59) Alkaline Phosphatase 209 U/L (46-116) Total Protein 5.3 g/dL (6.4-8.2) Albumin 1.7 g/dL (3.4-5.0) Albumin/Globulin Ratio 0.5 (1.0-1.7) Microbiology Micro Microbiology 11/29/18 Blood Culture - Final, Complete 11/28/18 Urine Culture - Preliminary, Resulted 11/28/18 Urine Culture Result 1 (MARGARITA) - Preliminary, Resulted Physical Exam HEENT: Neck Supple W Full Motion Chest: Symmetric LUNGS: Clear to Auscultation Heart: S1S2, RRR, murmurs (2/6 systolic murmur ) Abdomen: Soft N/T Extremities: No Edema Neurology: alert, oriented, follow commands Assessment Assessment 1. Fevers, myalgia, N/V, flank pain 2. Leukocytosis, lactic acidosis, sepsis 3. UTI, bacteremia. BC + GNR. ID following 4. Hypotension; secondary to above. low, but stable off pressor support 5. TATIANA; resolved 6. Elevated LFTs 7. Mild troponin elevation; initial 0.1. Echo revealed preserved LV systolic function with an EF of 55-60% with moderate to severe mitral regurgitation. 8. Hyperlipidemia; LDL 57 9. Left renal calculi; as per urology. Recommendations Pressor support as warranted Antibiotics as per IC/PCP Supportive care Outpatient followup of MR Consider outpatient ischemic evaluation Will follow along peripherally. ELAINE TAMAYO APRN November 30, 2018 11:37
[2018-11-30] MEDS ORDERED: IV RINGERS,LACTATED 1000ML 1,000 ML IV SCH (13:09)
[2018-11-30] MEDS ORDERED: fentaNYL PF VIAL 100 MCG/2 ML VIAL IV PRN ×2 (13:15)
[2018-11-30] MEDS ORDERED: HYDROmorphone 2 MG/ML VIAL IV PRN (13:15)
[2018-11-30] MEDS ORDERED: ONDANSETRON PF 4 MG/2 ML VIAL. IV PRN (13:15)
[2018-11-30] MEDS ORDERED: MORPHINE SULFATE 2 MG/ML VIAL. IV PRN (13:15)
[2018-11-30] MEDS ORDERED: PROCHLORPERAZINE 10 MG/2 ML VIAL. IV PRN (13:15)
--- NOTE | 2018-11-30 18:22 | NUR ---
Patient flu swab negative. 0730 Dr Lord said okay to d/c droplet precautions. MRSA negative as well. All urine throughout the day strained, with not evidence of stone. Anast came and talked to patient about stent placement. Patient demonstrated what this procedure is as well as risks and benefits of the procedure. Anesthesia talked to patient as well. patient is a/ox4. Patient consented to anesthesia, and stent replacement. Family is aware that patient is getting stent placement. Patient picked up for stent placement at 0624 with stable blood pressures and heart rate.
[2018-11-30] MEDS ORDERED: IOHEXOL 300 MG/ML 50 ML VIAL. ONE (18:33)
[2018-11-30] MEDS ORDERED: IOHEXOL 300 MG/ML 50 ML VIAL. IV ONE (18:35)
[2018-11-30] MEDS ORDERED: SEVOFLURANE 31 TO 60 MINUTES. IH ONE (18:40)
[2018-11-30] MEDS ORDERED: PROPOFOL 20 ML IV ONE (18:40)
[2018-11-30] MEDS ORDERED: DEXAMETHASONE SOD PHOS 4 MG/ML VIAL ONE (18:40)
[2018-11-30] MEDS ORDERED: ONDANSETRON PF 4 MG/2 ML VIAL. ONE (18:40)
[2018-11-30] MEDS ORDERED: fentaNYL PF VIAL 100 MCG/2 ML VIAL ONE (18:40)
[2018-11-30] MEDS ORDERED: LIDOCAINE 2% PF 5 ML VIAL. ONE (18:40)
--- NOTE | 2018-11-30 18:50 | PDOC4 ---
OPERATIVE NOTE Date: Date: November 30, 2018 Pre-Op Diagnosis: left ureteral stone sepsis Post-Op Diagnosis: same Procedure Performed: cystoscopy, left ureteral stent placement, left retrograde pyelogram Surgeon: Cathy Dotson Anesthesia Type: general Blood Loss: 0 Specimans Obtained: left kidney urine for UA and culture Findings: moderate left hydronephrosis. pus in left kidney Complications: none Operative Note: see dictation Will need second stage procedure in a few weeks. CATHY DOTSON MD November 30, 2018 18:50
--- NOTE | 2018-11-30 19:21 | OP ---
DATE OF SURGERY: 11/30/2018 SURGEON: Cathy Dotson MD. HEALTH AND HUMAN PERFORMANCE PROFESSOR: None. PREOPERATIVE DIAGNOSES: Left ureteral stone and sepsis. POSTOPERATIVE DIAGNOSES: Left ureteral stone and sepsis. PROCEDURE PERFORMED: Cystoscopy with left ureteral stent placement and left retrograde pyelogram. ANESTHESIA TYPE: General. INDICATIONS: This is a 58-year-old female who presented with sepsis. She was found to have an obstructing left ureteral stone. After discussion of risks, benefits and alternatives, she agreed to the above procedure. DESCRIPTION OF PROCEDURE: Informed consent was obtained. The patient was taken to the operating room where general anesthesia was induced. She was placed in the dorsal lithotomy position and sterilely prepped and draped. A timeout was performed. A rigid cystoscope was advanced through the urethra and into the bladder. The bladder appeared unremarkable. A guidewire was placed into the left ureter under fluoroscopic guidance. A ureteral catheter was advanced over the wire and a left retrograde pyelogram was performed, which showed medial rotation of the collecting system with moderate hydronephrosis. There were also stones noted within the collecting system. The collecting system deviation was consistent with her known history of a malrotated left kidney. The guidewire was then advanced through the ureteral catheter and into the renal pelvis. A 6 x 24 cm stent was then advanced over the wire under fluoroscopic guidance with appropriate curl noted in both the kidney and the bladder on fluoroscopy. The bladder contents were emptied and white cloudy urine was seen draining from the left stent. This urine was sent for urinalysis and culture. The patient was then awakened and taken to the recovery room in stable condition. BLOOD LOSS: None. COMPLICATIONS: None. SPECIMEN: Left kidney urine for urinalysis and culture. CATHY DOTSON MD DR: ALTHEA/kennedy JOB#: [id number] / [id number]
--- NOTE | 2018-11-30 19:40 | NUR ---
Pt back on unit from PACU. Report received from Deb at bedside. VSS, pt able to ambulate to toilet
[2018-12-01] VITALS (14 sets, daily range): BP systolic 90–122; BP diastolic 59–79
[2018-12-01] MEDS: IV NORMAL SALINE 1000ML BAG 1,000 ML IV SCH ×2 (01:11→03:19)
[2018-12-01 05:47] LABS: BASO % 0 % (0-3); EOS % 0 % (0-3); HEMATOCRIT 31.6 % (36.0-47.0); HEMOGLOBIN 10.8 g/dL (12.0-15.5); LYMPH # 0.9 x10^3/uL (1.0-4.8); LYMPH % 16 % (24-48); MEAN CORPUSCULAR HEMOGLOBIN 29 pg (25-35); MEAN CORPUSCULAR HGB CONC 34 g/dL (31-37); MEAN CORPUSCULAR VOLUME 85 fL (79-100); MONO # 0.4 x10^3/uL (0.0-1.1); MONO % 6 % (0-9); NEUT # 4.4 x10^3uL (1.8-7.7); NEUT % 77 % (31-73); PLATELET COUNT 117 x10^3/uL (140-400); RED BLOOD COUNT 3.71 x10^6/uL (3.50-5.40); RED CELL DISTRIBUTION WIDTH 14.9 % (11.5-14.5); WHITE BLOOD COUNT 5.7 x10^3/uL (4.0-11.0)
[2018-12-01 06:09] LABS: ALBUMIN 1.8 g/dL (3.4-5.0); ALBUMIN/GLOBULIN RATIO 0.4 (1.0-1.7); CREATININE 0.7 mg/dL (0.6-1.0); GFR 85.6; POTASSIUM 3.6 mmol/L (3.5-5.1); TOTAL BILIRUBIN 0.4 mg/dL (0.2-1.0); TOTAL PROTEIN 5.9 g/dL (6.4-8.2)
--- NOTE | 2018-12-01 06:10 | PDOC ---
Infectious Disease Note Subjective Subjective Feeling much better. procedure went well. Ate well. No pain No F/C/S/N/V/D/SOA/Rash ROS ROS o/w neg Vital Sign Vital Signs Vital Signs Date Time Temp Pulse Resp B/P (MAP) Pulse Ox O2 Delivery O2 Flow Rate FiO2 12/01/18 05:00 59 17 118/79 (92) 95 Room Air 12/01/18 04:00 98.5 98.5 11/30/18 18:55 10 Physical Exam PHYSICAL EXAM CONSTITUTIONAL: She is very pleasant. She is cooperative. She is in no acute distress. In a chair HEENT: Her pupils are equal. It appears she may have some early cataracts. She has normal conjunctivae. Oral cavity, pharynx was clear. NECK: Supple, no JVD. LUNGS: Clear to auscultation. No wheeze, no rhonchi. HEART: S1, S2. ABDOMEN: Soft, nontender, nondistended, no guarding, no rebound. She has no CVA tenderness. EXTREMITIES: Without clubbing or cyanosis. No gross edema. SKIN: Warm to touch without signs of rash. NEUROLOGIC: She is nonfocal. PSYCHIATRIC: Affect is pleasant Labs Lab Laboratory Tests Test 12/01/18 05:00 White Blood Count 5.7 x10^3/uL (4.0-11.0) Red Blood Count 3.71 x10^6/uL (3.50-5.40) Hemoglobin 10.8 g/dL (12.0-15.5) Hematocrit 31.6 % (36.0-47.0) Mean Corpuscular Volume 85 fL (79-100) Mean Corpuscular Hemoglobin 29 pg (25-35) Mean Corpuscular Hemoglobin Concent 34 g/dL (31-37) Red Cell Distribution Width 14.9 % (11.5-14.5) Platelet Count 117 x10^3/uL (140-400) Neutrophils (%) (Auto) 77 % (31-73) Lymphocytes (%) (Auto) 16 % (24-48) Monocytes (%) (Auto) 6 % (0-9) Eosinophils (%) (Auto) 0 % (0-3) Basophils (%) (Auto) 0 % (0-3) Neutrophils # (Auto) 4.4 x10^3uL (1.8-7.7) Lymphocytes # (Auto) 0.9 x10^3/uL (1.0-4.8) Monocytes # (Auto) 0.4 x10^3/uL (0.0-1.1) Eosinophils # (Auto) 0.0 x10^3/uL (0.0-0.7) Basophils # (Auto) 0.0 x10^3/uL (0.0-0.2) Creatinine 0.6 mg/dL (0.6-1.0) Estimated GFR (Cockcroft-Gault) 102.[address] IMPRESSION: 6 mm left UPJ calculus is seen which is causing mild to moderate obstruction of the left collecting system. Ecoli UTI Microbiology 11/28/18 Blood Culture - Final, Complete 11/28/18 Urine Culture - Preliminary, Resulted 11/28/18 Urine Culture Result 1 (MARGARITA) - Preliminary, Resulted Objective Assessment GNR Sepsis - POA - 11/28 and 11/29 better - looks well. Renal stone on left. Ordered U/S 11/29- then KUB and Urology consult 11/29.s/p Cystoscopy with left ureteral stent placement and left retrograde pyelogram 11/30 Bandemia Ecoli UTI - POA 11/28 reported influenza - neg here Transaminitis - ? sec to hypotension TATIANA - better Plan Plan of Care Cont Rocephin F/u repeat cults and ID and sensitivities D/w nursing MIKA LICONA MD December 01, 2018 06:10
[2018-12-01] MEDS: cefTRIAXone IV Push 2 GM VIAL. IVP SCH (06:31)
[2018-12-01] MEDS: LACTOBACILLUS RHAMNOSUS GG 1 CAPSULE. PO SCH ×2 (08:08→21:02)
[2018-12-01] MEDS: TAMSULOSIN 0.4 MG CAP.ER.24H. PO SCH (08:08)
[2018-12-01 09:15] LABS: BILIRUBIN,URINE NEGATIVE (NEG); CLARITY,URINE TURBID; COLOR,URINE YELLOW; NITRITE,URINE NEGATIVE (NEG); PROTEIN,URINE 30 mg/dL (NEG-TRACE); UROBILINOGEN,URINE 0.2 mg/dL (0.2 mg/dL)
[2018-12-01 09:22] LABS: BACTERIA,URINE MANY /HPF (0-FEW); WBC,URINE TNTC /HPF (0-4)
[2018-12-01 09:24] LABS: RBC,URINE FOBS /HPF (0-2)
--- NOTE | 2018-12-01 09:58 | PDOC ---
PROGRESS NOTES History of Present Illness History of Present Illness History of Present Illness: HPI: Patient is a pleasant middle-aged female who presented with the above chief complaints Rated at 10 out 10 she has associated nausea occurring for several days describes as agonizing Ino the ER we checked her urine she has a UTI and probable sepsis she's hypotensive and tachycardic ICU Past Medical/Surgical History: PMH/PSH: Hysterectomy and Allergies: Allergies: Coded Allergies: No Known Drug Allergies (Unverified , 11/28/18) Family History: Family History: Hypertension Social History: Social Hisoty: She doesn't drink smoke or take drugs Assessment/Plan UTI with sepsis GRAM NEGATIVE RODS IN 2 OF 4 BOTTLES hypotension tachycardia fever CKD stage 2-3 6 mm left UPJ calculus is seen which is causing mild to moderate obstruction of the left collecting system. transaminitis, shock liver moderate to possibly moderately severe mitral regurgitation. mild tricuspid regurgitation. The PA pressure was estimated at 40 mmHg. elevated troponin i Cystoscopy with left ureteral stent placement and left retrograde pyelogram.11/30 Plan laser/stone extraction. recommend increased IVF to 125ml/h, flomax , strain urine. IV antibiotics IV fluids DVT prophylaxis full code home meds frequent labs ID consult iv Vanc iv Rocephin/levophed echo urology consult 39 min cc time repeat blood cult x 2 11/29 Vitals Vitals Vital Signs Date Time Temp Pulse Resp B/P (MAP) Pulse Ox O2 Delivery O2 Flow Rate FiO2 12/01/18 09:00 62 12 99/61 (74) 94 Room Air 12/01/18 08:00 98.5 98.5 11/30/18 18:55 10 Physical Exam Physical Exam CONSTITUTIONAL: She is very pleasant. She is cooperative. She is in no acute distress. In a chair HEENT: Her pupils are equal. It appears she may have some early cataracts. She has normal conjunctivae. Oral cavity, pharynx was clear. NECK: Supple, no JVD. LUNGS: Clear to auscultation. No wheeze, no rhonchi. HEART: S1, S2. ABDOMEN: Soft, nontender, nondistended, no guarding, no rebound. She has no CVA tenderness. EXTREMITIES: Without clubbing or cyanosis. No gross edema. SKIN: Warm to touch without signs of rash. NEUROLOGIC: She is nonfocal. PSYCHIATRIC: Affect is pleasant General: Alert, Oriented X3, Cooperative, No acute distress Heart: Regular rate, Normal S1, Normal S2 Lungs: Clear Abdomen: Normal bowel sounds, Soft, No tenderness, No hepatosplenomegaly Extremities: No edema, Normal pulses Skin: No breakdown, No significant lesion Labs LABS CT scan of the abdomen and pelvis without contrast 11/29/2018 CLINICAL HISTORY: Acute renal failure. UTI. Pyelonephritis. Moderate hydronephrosis seen on the left collecting system on ultrasound. TECHNIQUE: Unenhanced, contiguous, 2 mm axial sections were obtained through the abdomen and pelvis. One or more of the following individualized dose reduction techniques were utilized for this study: 1. Automated exposure control. 2. Adjustment of the mA and/or kV according to patient size. 3. Use of iterative reconstruction technique. FINDINGS: Comparison is made to the patient's renal ultrasound performed earlier today. Images through the lung bases demonstrate mild cardiomegaly. Areas of atelectasis and or infiltrate are seen involving both lower lobes. There are very small bilateral pleural effusions. The liver measures 17.8 cm in length. Decreased attenuation of the liver parenchyma is seen consistent with fatty infiltration. The spleen, pancreas and adrenal glands are within normal limits. No abnormality of the right kidney is seen. The left kidney is enlarged. Mild to moderate dilatation of the left intrarenal collecting system is seen. The left kidney is rotated laterally to the left. Nonobstructing calculi are seen involving the superior pole of the left kidney. These measure 5 mm to 9 mm in size. A 6 mm left UPJ calculus is seen which is causing mild to moderate obstruction of the left collecting system. Atherosclerotic calcification of the abdominal aorta is seen. The abdominal aorta tapers normally. The gallbladder is distended. No free fluid or free air is seen within the abdomen. There is no evidence of bowel obstruction. Images through the pelvis demonstrate the urinary bladder distended with urine. Surgical clips are seen along the pelvic sidewall. Calcifications are seen within the pelvis consistent with phleboliths. A [id number] amount of free fluid is seen within the pelvis. Very mild S-shaped curvature of the thoracolumbar spine is seen. Degenerative changes are seen involving the thoracic and throughout the lumbar spine and both hips. IMPRESSION: 6 mm left UPJ calculus is seen which is causing mild to moderate obstruction of the left collecting system. Electronically signed by: Mustapha Ball MD (11/29/2018 6:38 PM) [facility] Laboratory Tests Test 12/01/18 03:25 12/01/18 05:00 Urine Collection Type U cath Urine Color Yellow Urine Clarity Turbid Urine pH 6.0 Urine Specific [place] 1.010 Urine Protein 30 mg/dL (NEG-TRACE) Urine Glucose (UA) Negative mg/dL (NEG) Urine Ketones (Stick) Negative mg/dL (NEG) Urine Blood Large (NEG) Urine Nitrite Negative (NEG) Urine Bilirubin Negative (NEG) Urine Urobilinogen Dipstick 0.2 mg/dL (0.2 mg/dL) Urine Leukocyte Esterase Large (NEG) Urine RBC Fobs /HPF (0-2) Urine WBC Tntc /HPF (0-4) Urine Bacteria Many /HPF (0-FEW) White Blood Count 5.7 x10^3/uL (4.0-11.0) Red Blood Count 3.71 x10^6/uL (3.50-5.40) Hemoglobin 10.8 g/dL (12.0-15.5) Hematocrit 31.6 % (36.0-47.0) Mean Corpuscular Volume 85 fL (79-100) Mean Corpuscular Hemoglobin 29 pg (25-35) Mean Corpuscular Hemoglobin Concent 34 g/dL (31-37) Red Cell Distribution Width 14.9 % (11.5-14.5) Platelet Count 117 x10^3/uL (140-400) Neutrophils (%) (Auto) 77 % (31-73) Lymphocytes (%) (Auto) 16 % (24-48) Monocytes (%) (Auto) 6 % (0-9) Eosinophils (%) (Auto) 0 % (0-3) Basophils (%) (Auto) 0 % (0-3) Neutrophils # (Auto) 4.4 x10^3uL (1.8-7.7) Lymphocytes # (Auto) 0.9 x10^3/uL (1.0-4.8) Monocytes # (Auto) 0.4 x10^3/uL (0.0-1.1) Eosinophils # (Auto) 0.0 x10^3/uL (0.0-0.7) Basophils # (Auto) 0.0 x10^3/uL (0.0-0.2) Sodium Level 143 mmol/L (136-145) Potassium Level 3.6 mmol/L (3.5-5.1) Chloride Level 109 mmol/L (98-107) Carbon Dioxide Level 24 mmol/L (21-32) Anion Gap 10 (6-14) Blood Urea Nitrogen 13 mg/dL (7-20) Creatinine 0.7 mg/dL (0.6-1.0) Estimated GFR (Cockcroft-Gault) 85.6 BUN/Creatinine Ratio 19 (6-20) Glucose Level 144 mg/dL (70-99) Calcium Level 8.0 mg/dL (8.5-10.1) Total Bilirubin 0.4 mg/dL (0.2-1.0) Aspartate Amino Transf (AST/SGOT) 73 U/L (15-37) Alanine Aminotransferase (ALT/SGPT) 143 U/L (14-59) Alkaline Phosphatase 208 U/L (46-116) Total Protein 5.9 g/dL (6.4-8.2) Albumin 1.8 g/dL (3.4-5.0) Albumin/Globulin Ratio 0.4 (1.0-1.7) Assessment and Plan Assessmemt and Plan Problems Medical Problems: (1) Acute renal failure Status: Acute (2) Hypoglycemia Status: Acute (3) Hypotension Status: Acute (4) Septic shock Status: Acute (5) UTI (urinary tract infection) Status: Acute ATE OF SURGERY: 11/30/2018 SURGEON: Alexander Rowell MD. BUSINESS SYSTEM CONSULTANT: None. PREOPERATIVE DIAGNOSES: Left ureteral stone and sepsis. POSTOPERATIVE DIAGNOSES: Left ureteral stone and sepsis. PROCEDURE PERFORMED: Cystoscopy with left ureteral stent placement and left retrograde pyelogram. ANESTHESIA TYPE: General. INDICATIONS: This is a 58-year-old female who presented with sepsis. She was found to have an obstructing left ureteral stone. After discussion of risks, benefits and alternatives, she agreed to the above procedure. DESCRIPTION OF PROCEDURE: Informed consent was obtained. The patient was taken to the operating room where general anesthesia was induced. She was placed in the dorsal lithotomy position and sterilely prepped and draped. A timeout was performed. A rigid cystoscope was advanced through the urethra and into the bladder. The bladder appeared unremarkable. A guidewire was placed into the left ureter under fluoroscopic guidance. A ureteral catheter was advanced over the wire and a left retrograde pyelogram was performed, which showed medial rotation of the collecting system with moderate hydronephrosis. There were also stones noted within the collecting system. The collecting system deviation was consistent with her known history of a malrotated left kidney. The guidewire was then advanced through the ureteral catheter and into the renal pelvis. A 6 x 24 cm stent was then advanced over the wire under fluoroscopic guidance with appropriate curl noted in both the kidney and the bladder on fluoroscopy. The bladder contents were emptied and white cloudy urine was seen draining from the left stent. This urine was sent for urinalysis and culture. The patient was then awakened and taken to the recovery room in stable condition. BLOOD LOSS: None. COMPLICATIONS: None. SPECIMEN: Left kidney urine for urinalysis and culture. Comment Review of Relevant I have reviewed the following items chavez (where applicable) has been applied. Labs Laboratory Tests Test 11/29/18 11:40 11/29/18 12:00 11/30/18 04:30 12/01/18 03:25 Prothrombin Time 14.9 SEC (11.7-14.0) Prothromb Time International Ratio 1.2 (0.8-1.1) Activated Partial Thromboplast Time 29 SEC (24-38) Fibrinogen 798 mg/dL (200-440) D-Dimer (Catherine) 3.54 ug/mlFEU (0.00-0.50) Magnesium Level 1.9 mg/dL (1.8-2.4) Troponin I Quantitative 0.115 ng/mL (0.000-0.055) Lactic Acid Level 0.9 mmol/L (0.4-2.0) White Blood Count 9.0 x10^3/uL (4.0-11.0) Red Blood Count 3.53 x10^6/uL (3.50-5.40) Hemoglobin 10.1 g/dL (12.0-15.5) Hematocrit 30.4 % (36.0-47.0) Mean Corpuscular Volume 86 fL (79-100) Mean Corpuscular Hemoglobin 29 pg (25-35) Mean Corpuscular Hemoglobin Concent 33 g/dL (31-37) Red Cell Distribution Width 14.9 % (11.5-14.5) Platelet Count 93 x10^3/uL (140-400) Neutrophils (%) (Auto) 69 % (31-73) Lymphocytes (%) (Auto) 18 % (24-48) Monocytes (%) (Auto) 11 % (0-9) Eosinophils (%) (Auto) 1 % (0-3) Basophils (%) (Auto) 1 % (0-3) Neutrophils # (Auto) 6.2 x10^3uL (1.8-7.7) Lymphocytes # (Auto) 1.7 x10^3/uL (1.0-4.8) Monocytes # (Auto) 1.0 x10^3/uL (0.0-1.1) Eosinophils # (Auto) 0.1 x10^3/uL (0.0-0.7) Basophils # (Auto) 0.0 x10^3/uL (0.0-0.2) Sodium Level 146 mmol/L (136-145) Potassium Level 3.5 mmol/L (3.5-5.1) Chloride Level 113 mmol/L (98-107) Carbon Dioxide Level 22 mmol/L (21-32) Anion Gap 11 (6-14) Blood Urea Nitrogen 16 mg/dL (7-20) Creatinine 0.7 mg/dL (0.6-1.0) Estimated GFR (Cockcroft-Gault) 85.6 BUN/Creatinine Ratio 23 (6-20) Glucose Level 88 mg/dL (70-99) Calcium Level 8.3 mg/dL (8.5-10.1) Total Bilirubin 0.3 mg/dL (0.2-1.0) Direct Bilirubin 0.2 mg/dL (0.0-0.2) Aspartate Amino Transf (AST/SGOT) 138 U/L (15-37) Alanine Aminotransferase (ALT/SGPT) 170 U/L (14-59) Alkaline Phosphatase 209 U/L (46-116) Total Protein 5.3 g/dL (6.4-8.2) Albumin 1.7 g/dL (3.4-5.0) Albumin/Globulin Ratio 0.5 (1.0-1.7) Urine Collection Type U cath Urine Color Yellow Urine Clarity Turbid Urine pH 6.0 Urine Specific [place] 1.010 Urine Protein 30 mg/dL (NEG-TRACE) Urine Glucose (UA) Negative mg/dL (NEG) Urine Ketones (Stick) Negative mg/dL (NEG) Urine Blood Large (NEG) Urine Nitrite Negative (NEG) Urine Bilirubin Negative (NEG) Urine Urobilinogen Dipstick 0.2 mg/dL (0.2 mg/dL) Urine Leukocyte Esterase Large (NEG) Urine RBC Fobs /HPF (0-2) Urine WBC Tntc /HPF (0-4) Urine Bacteria Many /HPF (0-FEW) Test 12/01/18 05:00 White Blood Count 5.7 x10^3/uL (4.0-11.0) Red Blood Count 3.71 x10^6/uL (3.50-5.40) Hemoglobin 10.8 g/dL (12.0-15.5) Hematocrit 31.6 % (36.0-47.0) Mean Corpuscular Volume 85 fL (79-100) Mean Corpuscular Hemoglobin 29 pg (25-35) Mean Corpuscular Hemoglobin Concent 34 g/dL (31-37) Red Cell Distribution Width 14.9 % (11.5-14.5) Platelet Count 117 x10^3/uL (140-400) Neutrophils (%) (Auto) 77 % (31-73) Lymphocytes (%) (Auto) 16 % (24-48) Monocytes (%) (Auto) 6 % (0-9) Eosinophils (%) (Auto) 0 % (0-3) Basophils (%) (Auto) 0 % (0-3) Neutrophils # (Auto) 4.4 x10^3uL (1.8-7.7) Lymphocytes # (Auto) 0.9 x10^3/uL (1.0-4.8) Monocytes # (Auto) 0.4 x10^3/uL (0.0-1.1) Eosinophils # (Auto) 0.0 x10^3/uL (0.0-0.7) Basophils # (Auto) 0.0 x10^3/uL (0.0-0.2) Sodium Level 143 mmol/L (136-145) Potassium Level 3.6 mmol/L (3.5-5.1) Chloride Level 109 mmol/L (98-107) Carbon Dioxide Level 24 mmol/L (21-32) Anion Gap 10 (6-14) Blood Urea Nitrogen 13 mg/dL (7-20) Creatinine 0.7 mg/dL (0.6-1.0) Estimated GFR (Cockcroft-Gault) 85.6 BUN/Creatinine Ratio 19 (6-20) Glucose Level 144 mg/dL (70-99) Calcium Level 8.0 mg/dL (8.5-10.1) Total Bilirubin 0.4 mg/dL (0.2-1.0) Aspartate Amino Transf (AST/SGOT) 73 U/L (15-37) Alanine Aminotransferase (ALT/SGPT) 143 U/L (14-59) Alkaline Phosphatase 208 U/L (46-116) Total Protein 5.9 g/dL (6.4-8.2) Albumin 1.8 g/dL (3.4-5.0) Albumin/Globulin Ratio 0.4 (1.0-1.7) Laboratory Tests Test 12/01/18 03:25 12/01/18 05:00 Urine Collection Type U cath Urine Color Yellow Urine Clarity Turbid Urine pH 6.0 Urine Specific [place] 1.010 Urine Protein 30 mg/dL (NEG-TRACE) Urine Glucose (UA) Negative mg/dL (NEG) Urine Ketones (Stick) Negative mg/dL (NEG) Urine Blood Large (NEG) Urine Nitrite Negative (NEG) Urine Bilirubin Negative (NEG) Urine Urobilinogen Dipstick 0.2 mg/dL (0.2 mg/dL) Urine Leukocyte Esterase Large (NEG) Urine RBC Fobs /HPF (0-2) Urine WBC Tntc /HPF (0-4) Urine Bacteria Many /HPF (0-FEW) White Blood Count 5.7 x10^3/uL (4.0-11.0) Red Blood Count 3.71 x10^6/uL (3.50-5.40) Hemoglobin 10.8 g/dL (12.0-15.5) Hematocrit 31.6 % (36.0-47.0) Mean Corpuscular Volume 85 fL (79-100) Mean Corpuscular Hemoglobin 29 pg (25-35) Mean Corpuscular Hemoglobin Concent 34 g/dL (31-37) Red Cell Distribution Width 14.9 % (11.5-14.5) Platelet Count 117 x10^3/uL (140-400) Neutrophils (%) (Auto) 77 % (31-73) Lymphocytes (%) (Auto) 16 % (24-48) Monocytes (%) (Auto) 6 % (0-9) Eosinophils (%) (Auto) 0 % (0-3) Basophils (%) (Auto) 0 % (0-3) Neutrophils # (Auto) 4.4 x10^3uL (1.8-7.7) Lymphocytes # (Auto) 0.9 x10^3/uL (1.0-4.8) Monocytes # (Auto) 0.4 x10^3/uL (0.0-1.1) Eosinophils # (Auto) 0.0 x10^3/uL (0.0-0.7) Basophils # (Auto) 0.0 x10^3/uL (0.0-0.2) Sodium Level 143 mmol/L (136-145) Potassium Level 3.6 mmol/L (3.5-5.1) Chloride Level 109 mmol/L (98-107) Carbon Dioxide Level 24 mmol/L (21-32) Anion Gap 10 (6-14) Blood Urea Nitrogen 13 mg/dL (7-20) Creatinine 0.7 mg/dL (0.6-1.0) Estimated GFR (Cockcroft-Gault) 85.6 BUN/Creatinine Ratio 19 (6-20) Glucose Level 144 mg/dL (70-99) Calcium Level 8.0 mg/dL (8.5-10.1) Total Bilirubin 0.4 mg/dL (0.2-1.0) Aspartate Amino Transf (AST/SGOT) 73 U/L (15-37) Alanine Aminotransferase (ALT/SGPT) 143 U/L (14-59) Alkaline Phosphatase 208 U/L (46-116) Total Protein 5.9 g/dL (6.4-8.2) Albumin 1.8 g/dL (3.4-5.0) Albumin/Globulin Ratio 0.4 (1.0-1.7) Microbiology 11/29/18 Blood Culture - Final, Complete 11/28/18 Urine Culture - Preliminary, Resulted 11/28/18 Urine Culture Result 1 (MARGARITA) - Preliminary, Resulted Medications Current Medications Sodium Chloride 1,000 ml @ 1,440 mls/hr Q42M IV Last administered on 11/28/18at 10:40; Start 11/28/18 at 10:45; Stop 11/28/18 at 11:45; Status DC Ketorolac Tromethamine (Toradol 30mg Vial) 30 mg 1X ONCE IV Last administered on 11/28/18at 10:41; Start 11/28/18 at 10:45; Stop 11/28/18 at 10:46; Status DC Ondansetron HCl (Zofran) 4 mg 1X ONCE IV Last administered on 11/28/18at 10:41; Start 11/28/18 at 10:45; Stop 11/28/18 at 10:46; Status DC Ondansetron HCl (Zofran) 4 mg STK-MED ONCE .ROUTE ; Start 11/28/18 at 10:36; Stop 11/28/18 at 10:37; Status DC Ketorolac Tromethamine (Toradol 30mg Vial) 30 mg STK-MED ONCE .ROUTE ; Start 11/28/18 at 10:36; Stop 11/28/18 at 10:37; Status DC Vancomycin HCl (Vanco Per Pharmacy) 1 each PRN DAILY PRN MC SEE COMMENTS Last administered on 11/29/18at 09:52; Start 11/28/18 at 11:00; Stop 11/30/18 at 07:25; Status DC Cefepime HCl (Maxipime) 1 gm 1X ONCE IVP Last administered on 11/28/18at 11:26; Start 11/28/18 at 11:15; Stop 11/28/18 at 11:16; Status DC Sodium Chloride 1,000 ml @ 1,000 mls/hr 1X ONCE IV Last administered on 11/28/18at 11:04; Start 11/28/18 at 11:00; Stop 11/28/18 at 11:59; Status DC Vancomycin HCl 1.5 gm/Sodium Chloride 500 ml @ 250 mls/hr 1X ONCE IV Last administered on 11/28/18at 11:31; Start 11/28/18 at 11:15; Stop 11/28/18 at 13:14; Status DC Sodium Chloride 1,000 ml @ 125 mls/hr 1X ONCE IV Last administered on 11/28/18at 12:28; Start 11/28/18 at 12:15; Stop 11/28/18 at 20:14; Status DC Ondansetron HCl (Zofran) 4 mg PRN Q8HRS PRN IV NAUSEA/VOMITING; Start 11/28/18 at 12:30; Stop 11/29/18 at 12:29; Status DC Morphine Sulfate (Morphine Sulfate) 2 mg PRN Q2HR PRN IV PAIN; Start 11/28/18 at 12:30; Stop 11/29/18 at 12:29; Status DC Sodium Chloride 1,000 ml @ 0 mls/hr Q0M IV ; Start 11/28/18 at 12:29; Stop 11/29/18 at 12:28; Status DC Acetaminophen (Tylenol) 650 mg PRN Q4HRS PRN PO FEVER Last administered on 11/29/18at 01:07; Start 11/28/18 at 12:30; Stop 11/29/18 at 12:29; Status DC Sodium Chloride 1,000 ml @ 125 mls/hr 1X ONCE IV Last administered on 11/28/18at 12:30; Start 11/28/18 at 12:30; Stop 11/28/18 at 20:29; Status DC Vancomycin HCl 1 gm/Sodium Chloride 250 ml @ 250 mls/hr Q24H IV Last administered on 11/29/18at 11:58; Start 11/29/18 at 11:30; Stop 11/30/18 at 07:25; Status DC Vancomycin HCl (Vancomycin Trough Level) 1 each 1X ONCE MC ; Start 11/30/18 at 11:00; Stop 11/30/18 at 11:00; Status DC Ceftriaxone Sodium (Rocephin) 2 gm Q24H IVP Last administered on 12/01/18at 06:31; Start 11/29/18 at 07:00 Sodium Chloride 500 ml @ 500 mls/hr 1X ONCE IV Last administered on 11/29/18at 07:29; Start 11/29/18 at 07:30; Stop 11/29/18 at 08:29; Status DC Lactobacillus Rhamnosus (Culturelle) 1 cap BID PO Last administered on 12/01/18at 08:08; Start 11/29/18 at 21:00 Hydrocortisone Sodium Succinate (Solu-CORTEF) 100 mg 1X ONCE IV Last administered on 11/29/18at 11:59; Start 11/29/18 at 11:45; Stop 11/29/18 at 11:46; Status DC Sodium Chloride (Normal Saline Flush) 10 ml QSHIFT PRN IV AFTER MEDS AND BLOOD DRAWS; Start 11/29/18 at 11:15 Norepinephrine Bitartrate 250 ml @ 0 mls/hr CONT PRN IV PER PROTOCOL Last administered on 11/29/18at 14:05; Start 11/29/18 at 11:15 Sodium Chloride 1,000 ml @ 125 mls/hr Q8H IV Last administered on 12/01/18at 01:11; Start 11/29/18 at 19:00 Tamsulosin HCl (Flomax) 0.4 mg 1X ONCE PO Last administered on 11/29/18at 20:07; Start 11/29/18 at 19:45; Stop 11/29/18 at 19:54; Status DC Tamsulosin HCl (Flomax) 0.4 mg DAILY PO Last administered on 12/01/18at 08:08; Start 11/30/18 at 09:00 Ondansetron HCl (Zofran) 4 mg PRN Q6HRS PRN IV NAUSEA/VOMITING; Start 11/30/18 at 13:15; Stop 12/01/18 at 13:14 Fentanyl Citrate (Fentanyl 2ml Vial) 25 mcg PRN Q5MIN PRN IV MILD PAIN 1-3; Start 11/30/18 at 13:15; Stop 12/01/18 at 13:14 Fentanyl Citrate (Fentanyl 2ml Vial) 50 mcg PRN Q5MIN PRN IV MODERATE TO SEVERE PAIN; Start 11/30/18 at 13:15; Stop 12/01/18 at 13:14 Morphine Sulfate (Morphine Sulfate) 1 mg PRN Q10MIN PRN IV SEVERE PAIN 7-10; Start 11/30/18 at 13:15; Stop 12/01/18 at 13:14 Ringer's Solution 1,000 ml @ 30 mls/hr Q24H IV Last administered on 11/30/18at 15:45; Start 11/30/18 at 13:09; Stop 12/01/18 at 01:08; Status DC Hydromorphone HCl (Dilaudid) 0.5 mg PRN Q10MIN PRN IV SEV PAIN, Second choice; Start 11/30/18 at 13:15; Stop 12/01/18 at 13:14 Prochlorperazine Edisylate (Compazine) 5 mg PACU PRN PRN IV NAUSEA, MRX1; Start 11/30/18 at 13:15; Stop 12/01/18 at 13:14 Propofol 20 ml @ As Directed STK-MED ONCE IV ; Start 11/30/18 at 18:40; Stop 11/30/18 at 18:41; Status DC Lidocaine HCl (Lidocaine Pf 2% Vial) 5 ml STK-MED ONCE .ROUTE ; Start 11/30/18 at 18:40; Stop 11/30/18 at 18:41; Status DC Ondansetron HCl (Zofran) 4 mg STK-MED ONCE .ROUTE ; Start 11/30/18 at 18:40; Stop 11/30/18 at 18:41; Status DC Dexamethasone Sodium Phosphate (Decadron) 4 mg STK-MED ONCE .ROUTE ; Start 11/30/18 at 18:40; Stop 11/30/18 at 18:41; Status DC Fentanyl Citrate (Fentanyl 2ml Vial) 100 mcg STK-MED ONCE .ROUTE ; Start 11/30/18 at 18:40; Stop 11/30/18 at 18:41; Status DC Sevoflurane (Ultane) 30 ml STK-MED ONCE IH ; Start 11/30/18 at 18:40; Stop 11/30/18 at 18:41; Status DC Iohexol (Omnipaque 300 Mg/ml) 50 ml STK-MED ONCE IV Last administered on 11/30/18at 18:35; Start 11/30/18 at 18:35; Stop 11/30/18 at 19:23; Status DC Iohexol (Omnipaque 300 Mg/ml) 50 ml STK-MED ONCE .ROUTE ; Start 11/30/18 at 18:33; Stop 11/30/18 at 19:33; Status DC Active Scripts Active Reported Tamiflu (Oseltamivir Phosphate) 30 Mg Capsule 30 Mg PO DAILY Vitals/I & O Vital Sign - Last 24 Hours 11/30/18 11/30/18 11/30/18 11/30/18 10:00 11:00 12:00 12:00 Temp 98.7 98.7 Pulse 64 64 64 Resp 20 21 21 B/P (MAP) 97/59 (72) 94/65 (75) 99/63 (75) Pulse Ox 97 96 96 O2 Delivery Room Air Room Air Room Air Room Air 11/30/18 11/30/18 11/30/18 11/30/18 13:00 14:00 15:00 16:00 Temp 98.5 98.5 Pulse 60 66 72 68 Resp 28 22 23 25 B/P (MAP) 110/77 (88) 110/77 (88) 107/69 (82) 111/66 (81) Pulse Ox 97 97 97 O2 Delivery Room Air Room Air Room Air Room Air 11/30/18 11/30/18 11/30/18 11/30/18 16:00 17:00 18:00 18:55 Pulse 66 72 Resp 22 25 B/P (MAP) 114/68 (83) 120/83 (95) Pulse Ox 95 93 O2 Delivery Room Air Room Air Room Air Room Air 11/30/18 11/30/18 11/30/18 11/30/18 18:55 19:10 19:25 20:00 Temp 97.0 97.0 97.0 97.7 97.0 97.0 97.0 97.7 Pulse 79 80 73 70 Resp 15 15 16 20 B/P (MAP) 93/50 105/61 112/69 108/67 (81) Pulse Ox 99 93 95 92 O2 Delivery Room Air Room Air Room Air Room Air O2 Flow Rate 10 11/30/18 11/30/18 11/30/18 11/30/18 20:00 21:00 22:00 23:00 Pulse 72 68 71 Resp 20 20 12 B/P (MAP) 107/66 (80) 109/62 (78) 103/64 (77) Pulse Ox 94 92 90 O2 Delivery Room Air Room Air Room Air Room Air 11/30/18 12/01/18 12/01/18 12/01/18 23:59 00:00 01:00 02:00 Temp 97.7 97.7 Pulse 66 62 67 Resp 13 12 20 B/P (MAP) 103/63 (76) 101/61 (74) 110/64 (79) Pulse Ox 91 92 93 O2 Delivery Room Air Room Air Room Air Room Air 12/01/18 12/01/18 12/01/18 12/01/18 03:00 04:00 04:00 05:00 Temp 98.5 98.5 Pulse 57 61 59 Resp 15 23 17 B/P (MAP) 122/77 (92) 118/70 (86) 118/79 (92) Pulse Ox 95 95 95 O2 Delivery Room Air Room Air Room Air Room Air 12/01/18 12/01/18 12/01/18 12/01/18 06:00 07:00 08:00 09:00 Temp 98.5 98.5 Pulse 59 58 58 62 Resp 22 17 12 12 B/P (MAP) 116/74 (88) 114/73 (87) 90/59 (69) 99/61 (74) Pulse Ox 96 96 95 94 O2 Delivery Room Air Room Air Room Air Room Air Intake and Output 11/30/18 11/30/18 12/01/18 15:00 23:00 07:00 Intake Total 650 ml 2433 ml 1792 ml Output Total 1550 ml 1050 ml 1850 ml Balance -900 ml 1383 ml -58 ml ELISABETH ROBERTS MD December 01, 2018 09:58
--- NOTE | 2018-12-01 10:03 | PDOC ---
RUBI HANSON RISK ANALYST 12/01/18 1003: SUBJECTIVE Subjective Doing well, no pain or discomfort from stent. OBJECTIVE Objective Physical Exam: General appearance: Alert and Oriented Head: Normocephalic, without obvious abnormality Eyes: conjunctivae/corneas clear. PERRL, EOM's intact. Fundi benign Back: no CVA pain bilaterally Lungs: Regular respirations, non labored breathing Abdomen: soft, non-tender. . No masses, no organomegaly Pelvic: deferred Vital Signs Vital Signs Date Time Temp Pulse Resp B/P (MAP) Pulse Ox O2 Delivery O2 Flow Rate FiO2 12/01/18 09:00 62 12 99/61 (74) 94 Room Air 12/01/18 08:00 98.5 58 12 90/59 (69) 95 Room Air 98.5 12/01/18 07:00 58 17 114/73 (87) 96 Room Air 12/01/18 06:00 59 22 116/74 (88) 96 Room Air 12/01/18 05:00 59 17 118/79 (92) 95 Room Air 12/01/18 04:00 98.5 61 23 118/70 (86) 95 Room Air 98.5 12/01/18 04:00 Room Air 12/01/18 03:00 57 15 122/77 (92) 95 Room Air 12/01/18 02:00 67 20 110/64 (79) 93 Room Air 12/01/18 01:00 62 12 101/61 (74) 92 Room Air 12/01/18 00:00 97.7 66 13 103/63 (76) 91 Room Air 97.7 11/30/18 23:59 Room Air 11/30/18 23:00 71 12 103/64 (77) 90 Room Air 11/30/18 22:00 68 20 109/62 (78) 92 Room Air 11/30/18 21:00 72 20 107/66 (80) 94 Room Air 11/30/18 20:00 Room Air 11/30/18 20:00 97.7 70 20 108/67 (81) 92 Room Air 97.7 11/30/18 19:25 97.0 73 16 112/69 95 Room Air 97.0 11/30/18 19:10 97.0 80 15 105/61 93 Room Air 97.0 11/30/18 18:55 97.0 79 15 93/50 99 Room Air 10 97.0 11/30/18 18:55 Room Air 11/30/18 18:00 72 25 120/83 (95) 93 Room Air 11/30/18 17:00 66 22 114/68 (83) 95 Room Air 11/30/18 16:00 Room Air 11/30/18 16:00 98.5 68 25 111/66 (81) Room Air 98.5 11/30/18 15:00 72 23 107/69 (82) 97 Room Air 11/30/18 14:00 66 22 110/77 (88) 97 Room Air 11/30/18 13:00 60 28 110/77 (88) 97 Room Air 11/30/18 12:00 98.7 64 21 99/63 (75) 96 Room Air 98.7 11/30/18 12:00 Room Air 11/30/18 11:00 64 21 94/65 (75) 96 Room Air I & O Intake and Output 12/01/18 07:00 Intake Total 4875 ml Output Total 4450 ml Balance 425 ml Intake Oral 1590 ml IV Total 3285 ml Output Urine Total 4450 ml # Voids 6 PHYSICAL EXAM Physical Exam Physical Exam: General appearance: Alert and Oriented Head: Normocephalic, without obvious abnormality Eyes: conjunctivae/corneas clear. PERRL, EOM's intact. Fundi benign Back: no CVA pain bilaterally Lungs: Regular respirations, non labored breathing Abdomen: soft, non-tender. . No masses, no organomegaly Pelvic: deferred ASSESSMENT/PLAN Assessment/Plan Plan is for URS in two weeks. Explained to patient that [facility] will be calling her to schedule an appointment for this. Please call [facility] if you do not receive a phone call by Tue next week. Continue ABX, pain control as needed. Explained to patient that with stent in place, urine will look bloody on and off/this is normal. Please call for large 1/2 dollar sized clots, or urine that is very dark like red wine and not transparent. Will follow while in house. Problems: (1) Septic shock (2) UTI (urinary tract infection) COMMENT Lab Laboratory Tests Test 12/01/18 03:25 12/01/18 05:00 Urine Collection Type U cath Urine Color Yellow Urine Clarity Turbid Urine pH 6.0 Urine Specific [place] 1.010 Urine Protein 30 mg/dL (NEG-TRACE) Urine Glucose (UA) Negative mg/dL (NEG) Urine Ketones (Stick) Negative mg/dL (NEG) Urine Blood Large (NEG) Urine Nitrite Negative (NEG) Urine Bilirubin Negative (NEG) Urine Urobilinogen Dipstick 0.2 mg/dL (0.2 mg/dL) Urine Leukocyte Esterase Large (NEG) Urine RBC Fobs /HPF (0-2) Urine WBC Tntc /HPF (0-4) Urine Bacteria Many /HPF (0-FEW) White Blood Count 5.7 x10^3/uL (4.0-11.0) Red Blood Count 3.71 x10^6/uL (3.50-5.40) Hemoglobin 10.8 g/dL (12.0-15.5) Hematocrit 31.6 % (36.0-47.0) Mean Corpuscular Volume 85 fL (79-100) Mean Corpuscular Hemoglobin 29 pg (25-35) Mean Corpuscular Hemoglobin Concent 34 g/dL (31-37) Red Cell Distribution Width 14.9 % (11.5-14.5) Platelet Count 117 x10^3/uL (140-400) Neutrophils (%) (Auto) 77 % (31-73) Lymphocytes (%) (Auto) 16 % (24-48) Monocytes (%) (Auto) 6 % (0-9) Eosinophils (%) (Auto) 0 % (0-3) Basophils (%) (Auto) 0 % (0-3) Neutrophils # (Auto) 4.4 x10^3uL (1.8-7.7) Lymphocytes # (Auto) 0.9 x10^3/uL (1.0-4.8) Monocytes # (Auto) 0.4 x10^3/uL (0.0-1.1) Eosinophils # (Auto) 0.0 x10^3/uL (0.0-0.7) Basophils # (Auto) 0.0 x10^3/uL (0.0-0.2) Sodium Level 143 mmol/L (136-145) Potassium Level 3.6 mmol/L (3.5-5.1) Chloride Level 109 mmol/L (98-107) Carbon Dioxide Level 24 mmol/L (21-32) Anion Gap 10 (6-14) Blood Urea Nitrogen 13 mg/dL (7-20) Creatinine 0.7 mg/dL (0.6-1.0) Estimated GFR (Cockcroft-Gault) 85.6 BUN/Creatinine Ratio 19 (6-20) Glucose Level 144 mg/dL (70-99) Calcium Level 8.0 mg/dL (8.5-10.1) Total Bilirubin 0.4 mg/dL (0.2-1.0) Aspartate Amino Transf (AST/SGOT) 73 U/L (15-37) Alanine Aminotransferase (ALT/SGPT) 143 U/L (14-59) Alkaline Phosphatase 208 U/L (46-116) Total Protein 5.9 g/dL (6.4-8.2) Albumin 1.8 g/dL (3.4-5.0) Albumin/Globulin Ratio 0.4 (1.0-1.7) CATHY DOTSON MD 12/02/18 1149: ASSESSMENT/PLAN Assessment/Plan Agree with assessment and plan. Problem Qualifiers (1) UTI (urinary tract infection): Urinary tract infection type: site unspecified Hematuria presence: without hematuria Qualified Codes: N39.0 - Urinary tract infection, site not specified RUBI HANSON APRN December 01, 2018 10:03 CATHY DOTSON MD December 02, 2018 11:49
--- NOTE | 2018-12-01 15:31 | NUR ---
pt transferred to rm [id number] per w/c in stable cond with cell phone,dip tanker,clothes. No jewelry
--- NOTE | 2018-12-01 15:50 | NUR ---
Received from ICU per w/c, alert/oriented, saline lock intact right hand, denies pain or discomfort, oriented to surroundings, watching tv, side rails up, call light within reach
[2018-12-01] MEDS ORDERED: MEROPENEM 500 MG in IV NORMAL SALINE 50ML 50 ML IV ONE (20:45)
[2018-12-01] MEDS: MEROPENEM 500 MG in IV NORMAL SALINE 50ML 50 ML IV SCH (21:20)
[2018-12-02 04:00] VITALS: BP 119/66
[2018-12-02] MEDS: MEROPENEM 500 MG in IV NORMAL SALINE 50ML 50 ML IV SCH ×4 (05:31→23:29)
[2018-12-02 05:41] LABS: BASO % 0 % (0-3); EOS # 0.1 x10^3/uL (0.0-0.7); EOS % 1 % (0-3); HEMATOCRIT 32.7 % (36.0-47.0); HEMOGLOBIN 10.9 g/dL (12.0-15.5); LYMPH # 2.6 x10^3/uL (1.0-4.8); LYMPH % 28 % (24-48); MEAN CORPUSCULAR HEMOGLOBIN 28 pg (25-35); MEAN CORPUSCULAR HGB CONC 33 g/dL (31-37); MEAN CORPUSCULAR VOLUME 85 fL (79-100); MONO % 10 % (0-9); NEUT # 5.8 x10^3uL (1.8-7.7); NEUT % 61 % (31-73); PLATELET COUNT 156 x10^3/uL (140-400); RED BLOOD COUNT 3.86 x10^6/uL (3.50-5.40); RED CELL DISTRIBUTION WIDTH 14.5 % (11.5-14.5); WHITE BLOOD COUNT 9.5 x10^3/uL (4.0-11.0)
[2018-12-02 06:28] LABS: ALBUMIN 1.9 g/dL (3.4-5.0); ALBUMIN/GLOBULIN RATIO 0.5 (1.0-1.7); CALCIUM 8.5 mg/dL (8.5-10.1); CREATININE 0.7 mg/dL (0.6-1.0); GFR 85.6; MAGNESIUM 1.5 mg/dL (1.8-2.4); POTASSIUM 3.4 mmol/L (3.5-5.1); TOTAL BILIRUBIN 0.4 mg/dL (0.2-1.0); TOTAL PROTEIN 5.8 g/dL (6.4-8.2)
[2018-12-02 08:00] VITALS: BP 136/67
[2018-12-02] MEDS ORDERED: MAGNESIUM SULFATE 4GM 100 ML IV ONE (08:15)
[2018-12-02] MEDS ORDERED: POTASSIUM CL 40MEQ D5-0.45NACL 1,000 ML IV ONE (08:15)
--- NOTE | 2018-12-02 08:15 | PDOC ---
PROGRESS NOTES Chief Complaint Chief Complaint UTI with sepsis Gram negative bacteremia CKD stage 2-3 6 mm left UPJ calculus is seen which is causing mild to moderate obstruction of the left collecting system - s/p Cystoscopy with left ureteral stent placement and left retrograde pyelogram.11/30 Transaminitis, shock liver Moderate to possibly moderately severe mitral regurgitation. mild tricuspid regurgitation. The PA pressure was estimated at 40 mmHg. Elevated troponin i Plan laser/stone extraction. recommend increased IVF to 125ml/h, flomax , strain urine. IV antibiotics IV fluids DVT prophylaxis full code home meds frequent labs ID consult iv Vanc iv Rocephin/levophed echo urology consult 39 min cc time repeat blood cult x 2 11/29 History of Present Illness History of Present Illness Patient is a pleasant middle-aged female who presented with flank pain, fever and chills and apparently was being treated for influenza prior to admission. Found with e. coli UTI and GNR bacteremia. Admitted to ICU for severe sepsis, she has associated nausea occurring for several days describes as agonizing Feeling better today, has increased urinary frequency, this is bothering her. GNR in blood still not back with sensitivities yet. Vitals Vitals Vital Signs Date Time Temp Pulse Resp B/P (MAP) Pulse Ox O2 Delivery O2 Flow Rate FiO2 12/02/18 04:00 98.2 64 16 119/66 (83) 32 Room Air 98.2 Physical Exam Physical Exam CONSTITUTIONAL: She is very pleasant. She is cooperative. She is in no acute distress. In a chair HEENT: Her pupils are equal. It appears she may have some early cataracts. She has normal conjunctivae. Oral cavity, pharynx was clear. NECK: Supple, no JVD. LUNGS: Clear to auscultation. No wheeze, no rhonchi. HEART: S1, S2. ABDOMEN: Soft, nontender, nondistended, no guarding, no rebound. She has no CVA tenderness. EXTREMITIES: Without clubbing or cyanosis. No gross edema. SKIN: Warm to touch without signs of rash. NEUROLOGIC: She is nonfocal. PSYCHIATRIC: Affect is pleasant General: Alert, Oriented X3, Cooperative, No acute distress Heart: Regular rate, Normal S1, Normal S2 Lungs: Clear Abdomen: Normal bowel sounds, Soft, No tenderness, No hepatosplenomegaly Extremities: No edema, Normal pulses Skin: No breakdown, No significant lesion Labs LABS Laboratory Tests Test 12/02/18 04:40 White Blood Count 9.5 x10^3/uL (4.0-11.0) Red Blood Count 3.86 x10^6/uL (3.50-5.40) Hemoglobin 10.9 g/dL (12.0-15.5) Hematocrit 32.7 % (36.0-47.0) Mean Corpuscular Volume 85 fL (79-100) Mean Corpuscular Hemoglobin 28 pg (25-35) Mean Corpuscular Hemoglobin Concent 33 g/dL (31-37) Red Cell Distribution Width 14.5 % (11.5-14.5) Platelet Count 156 x10^3/uL (140-400) Neutrophils (%) (Auto) 61 % (31-73) Lymphocytes (%) (Auto) 28 % (24-48) Monocytes (%) (Auto) 10 % (0-9) Eosinophils (%) (Auto) 1 % (0-3) Basophils (%) (Auto) 0 % (0-3) Neutrophils # (Auto) 5.8 x10^3uL (1.8-7.7) Lymphocytes # (Auto) 2.6 x10^3/uL (1.0-4.8) Monocytes # (Auto) 1.0 x10^3/uL (0.0-1.1) Eosinophils # (Auto) 0.1 x10^3/uL (0.0-0.7) Basophils # (Auto) 0.0 x10^3/uL (0.0-0.2) Sodium Level 146 mmol/L (136-145) Potassium Level 3.4 mmol/L (3.5-5.1) Chloride Level 110 mmol/L (98-107) Carbon Dioxide Level 26 mmol/L (21-32) Anion Gap 10 (6-14) Blood Urea Nitrogen 12 mg/dL (7-20) Creatinine 0.7 mg/dL (0.6-1.0) Estimated GFR (Cockcroft-Gault) 85.6 BUN/Creatinine Ratio 17 (6-20) Glucose Level 80 mg/dL (70-99) Calcium Level 8.5 mg/dL (8.5-10.1) Magnesium Level 1.5 mg/dL (1.8-2.4) Total Bilirubin 0.4 mg/dL (0.2-1.0) Aspartate Amino Transf (AST/SGOT) 32 U/L (15-37) Alanine Aminotransferase (ALT/SGPT) 107 U/L (14-59) Alkaline Phosphatase 175 U/L (46-116) Total Protein 5.8 g/dL (6.4-8.2) Albumin 1.9 g/dL (3.4-5.0) Albumin/Globulin Ratio 0.5 (1.0-1.7) Assessment and Plan Assessmemt and Plan Problems Medical Problems: (1) Acute renal failure Status: Acute (2) Hypoglycemia Status: Acute (3) Hypotension Status: Acute (4) Septic shock Status: Acute (5) UTI (urinary tract infection) Status: Acute Comment Review of Relevant I have reviewed the following items chavez (where applicable) has been applied. Labs Laboratory Tests Test 12/01/18 03:25 12/01/18 05:00 12/02/18 04:40 Urine Collection Type U cath Urine Color Yellow Urine Clarity Turbid Urine pH 6.0 Urine Specific [place] 1.010 Urine Protein 30 mg/dL (NEG-TRACE) Urine Glucose (UA) Negative mg/dL (NEG) Urine Ketones (Stick) Negative mg/dL (NEG) Urine Blood Large (NEG) Urine Nitrite Negative (NEG) Urine Bilirubin Negative (NEG) Urine Urobilinogen Dipstick 0.2 mg/dL (0.2 mg/dL) Urine Leukocyte Esterase Large (NEG) Urine RBC Fobs /HPF (0-2) Urine WBC Tntc /HPF (0-4) Urine Bacteria Many /HPF (0-FEW) White Blood Count 5.7 x10^3/uL (4.0-11.0) 9.5 x10^3/uL (4.0-11.0) Red Blood Count 3.71 x10^6/uL (3.50-5.40) 3.86 x10^6/uL (3.50-5.40) Hemoglobin 10.8 g/dL (12.0-15.5) 10.9 g/dL (12.0-15.5) Hematocrit 31.6 % (36.0-47.0) 32.7 % (36.0-47.0) Mean Corpuscular Volume 85 fL (79-100) 85 fL (79-100) Mean Corpuscular Hemoglobin 29 pg (25-35) 28 pg (25-35) Mean Corpuscular Hemoglobin Concent 34 g/dL (31-37) 33 g/dL (31-37) Red Cell Distribution Width 14.9 % (11.5-14.5) 14.5 % (11.5-14.5) Platelet Count 117 x10^3/uL (140-400) 156 x10^3/uL (140-400) Neutrophils (%) (Auto) 77 % (31-73) 61 % (31-73) Lymphocytes (%) (Auto) 16 % (24-48) 28 % (24-48) Monocytes (%) (Auto) 6 % (0-9) 10 % (0-9) Eosinophils (%) (Auto) 0 % (0-3) 1 % (0-3) Basophils (%) (Auto) 0 % (0-3) 0 % (0-3) Neutrophils # (Auto) 4.4 x10^3uL (1.8-7.7) 5.8 x10^3uL (1.8-7.7) Lymphocytes # (Auto) 0.9 x10^3/uL (1.0-4.8) 2.6 x10^3/uL (1.0-4.8) Monocytes # (Auto) 0.4 x10^3/uL (0.0-1.1) 1.0 x10^3/uL (0.0-1.1) Eosinophils # (Auto) 0.0 x10^3/uL (0.0-0.7) 0.1 x10^3/uL (0.0-0.7) Basophils # (Auto) 0.0 x10^3/uL (0.0-0.2) 0.0 x10^3/uL (0.0-0.2) Sodium Level 143 mmol/L (136-145) 146 mmol/L (136-145) Potassium Level 3.6 mmol/L (3.5-5.1) 3.4 mmol/L (3.5-5.1) Chloride Level 109 mmol/L (98-107) 110 mmol/L (98-107) Carbon Dioxide Level 24 mmol/L (21-32) 26 mmol/L (21-32) Anion Gap 10 (6-14) 10 (6-14) Blood Urea Nitrogen 13 mg/dL (7-20) 12 mg/dL (7-20) Creatinine 0.7 mg/dL (0.6-1.0) 0.7 mg/dL (0.6-1.0) Estimated GFR (Cockcroft-Gault) 85.6 85.6 BUN/Creatinine Ratio 19 (6-20) 17 (6-20) Glucose Level 144 mg/dL (70-99) 80 mg/dL (70-99) Calcium Level 8.0 mg/dL (8.5-10.1) 8.5 mg/dL (8.5-10.1) Total Bilirubin 0.4 mg/dL (0.2-1.0) 0.4 mg/dL (0.2-1.0) Aspartate Amino Transf (AST/SGOT) 73 U/L (15-37) 32 U/L (15-37) Alanine Aminotransferase (ALT/SGPT) 143 U/L (14-59) 107 U/L (14-59) Alkaline Phosphatase 208 U/L (46-116) 175 U/L (46-116) Total Protein 5.9 g/dL (6.4-8.2) 5.8 g/dL (6.4-8.2) Albumin 1.8 g/dL (3.4-5.0) 1.9 g/dL (3.4-5.0) Albumin/Globulin Ratio 0.4 (1.0-1.7) 0.5 (1.0-1.7) Magnesium Level 1.5 mg/dL (1.8-2.4) Laboratory Tests Test 12/02/18 04:40 White Blood Count 9.5 x10^3/uL (4.0-11.0) Red Blood Count 3.86 x10^6/uL (3.50-5.40) Hemoglobin 10.9 g/dL (12.0-15.5) Hematocrit 32.7 % (36.0-47.0) Mean Corpuscular Volume 85 fL (79-100) Mean Corpuscular Hemoglobin 28 pg (25-35) Mean Corpuscular Hemoglobin Concent 33 g/dL (31-37) Red Cell Distribution Width 14.5 % (11.5-14.5) Platelet Count 156 x10^3/uL (140-400) Neutrophils (%) (Auto) 61 % (31-73) Lymphocytes (%) (Auto) 28 % (24-48) Monocytes (%) (Auto) 10 % (0-9) Eosinophils (%) (Auto) 1 % (0-3) Basophils (%) (Auto) 0 % (0-3) Neutrophils # (Auto) 5.8 x10^3uL (1.8-7.7) Lymphocytes # (Auto) 2.6 x10^3/uL (1.0-4.8) Monocytes # (Auto) 1.0 x10^3/uL (0.0-1.1) Eosinophils # (Auto) 0.1 x10^3/uL (0.0-0.7) Basophils # (Auto) 0.0 x10^3/uL (0.0-0.2) Sodium Level 146 mmol/L (136-145) Potassium Level 3.4 mmol/L (3.5-5.1) Chloride Level 110 mmol/L (98-107) Carbon Dioxide Level 26 mmol/L (21-32) Anion Gap 10 (6-14) Blood Urea Nitrogen 12 mg/dL (7-20) Creatinine 0.7 mg/dL (0.6-1.0) Estimated GFR (Cockcroft-Gault) 85.6 BUN/Creatinine Ratio 17 (6-20) Glucose Level 80 mg/dL (70-99) Calcium Level 8.5 mg/dL (8.5-10.1) Magnesium Level 1.5 mg/dL (1.8-2.4) Total Bilirubin 0.4 mg/dL (0.2-1.0) Aspartate Amino Transf (AST/SGOT) 32 U/L (15-37) Alanine Aminotransferase (ALT/SGPT) 107 U/L (14-59) Alkaline Phosphatase 175 U/L (46-116) Total Protein 5.8 g/dL (6.4-8.2) Albumin 1.9 g/dL (3.4-5.0) Albumin/Globulin Ratio 0.5 (1.0-1.7) Microbiology 12/01/18 Blood Culture - Preliminary, Resulted NO GROWTH AFTER 1 DAY 11/28/18 Urine Culture - Final, Complete 11/28/18 Urine Culture Result 1 (MARGARITA) - Final, Complete 11/28/18 Antimicrobic Susceptibility - Final, Complete Medications Current Medications Sodium Chloride 1,000 ml @ 1,440 mls/hr Q42M IV Last administered on 11/28/18at 10:40; Start 11/28/18 at 10:45; Stop 11/28/18 at 11:45; Status DC Ketorolac Tromethamine (Toradol 30mg Vial) 30 mg 1X ONCE IV Last administered on 11/28/18at 10:41; Start 11/28/18 at 10:45; Stop 11/28/18 at 10:46; Status DC Ondansetron HCl (Zofran) 4 mg 1X ONCE IV Last administered on 11/28/18at 10:41; Start 11/28/18 at 10:45; Stop 11/28/18 at 10:46; Status DC Ondansetron HCl (Zofran) 4 mg STK-MED ONCE .ROUTE ; Start 11/28/18 at 10:36; Stop 11/28/18 at 10:37; Status DC Ketorolac Tromethamine (Toradol 30mg Vial) 30 mg STK-MED ONCE .ROUTE ; Start 11/28/18 at 10:36; Stop 11/28/18 at 10:37; Status DC Vancomycin HCl (Vanco Per Pharmacy) 1 each PRN DAILY PRN MC SEE COMMENTS Last administered on 11/29/18at 09:52; Start 11/28/18 at 11:00; Stop 11/30/18 at 07:25; Status DC Cefepime HCl (Maxipime) 1 gm 1X ONCE IVP Last administered on 11/28/18at 11:26; Start 11/28/18 at 11:15; Stop 11/28/18 at 11:16; Status DC Sodium Chloride 1,000 ml @ 1,000 mls/hr 1X ONCE IV Last administered on 11/28/18at 11:04; Start 11/28/18 at 11:00; Stop 11/28/18 at 11:59; Status DC Vancomycin HCl 1.5 gm/Sodium Chloride 500 ml @ 250 mls/hr 1X ONCE IV Last administered on 11/28/18at 11:31; Start 11/28/18 at 11:15; Stop 11/28/18 at 13:14; Status DC Sodium Chloride 1,000 ml @ 125 mls/hr 1X ONCE IV Last administered on 11/28/18at 12:28; Start 11/28/18 at 12:15; Stop 11/28/18 at 20:14; Status DC Ondansetron HCl (Zofran) 4 mg PRN Q8HRS PRN IV NAUSEA/VOMITING; Start 11/28/18 at 12:30; Stop 11/29/18 at 12:29; Status DC Morphine Sulfate (Morphine Sulfate) 2 mg PRN Q2HR PRN IV PAIN; Start 11/28/18 at 12:30; Stop 11/29/18 at 12:29; Status DC Sodium Chloride 1,000 ml @ 0 mls/hr Q0M IV ; Start 11/28/18 at 12:29; Stop 11/29/18 at 12:28; Status DC Acetaminophen (Tylenol) 650 mg PRN Q4HRS PRN PO FEVER Last administered on 11/29/18at 01:07; Start 11/28/18 at 12:30; Stop 11/29/18 at 12:29; Status DC Sodium Chloride 1,000 ml @ 125 mls/hr 1X ONCE IV Last administered on 11/28/18at 12:30; Start 11/28/18 at 12:30; Stop 11/28/18 at 20:29; Status DC Vancomycin HCl 1 gm/Sodium Chloride 250 ml @ 250 mls/hr Q24H IV Last administered on 11/29/18at 11:58; Start 11/29/18 at 11:30; Stop 11/30/18 at 07:25; Status DC Vancomycin HCl (Vancomycin Trough Level) 1 each 1X ONCE MC ; Start 11/30/18 at 11:00; Stop 11/30/18 at 11:00; Status DC Ceftriaxone Sodium (Rocephin) 2 gm Q24H IVP Last administered on 12/01/18at 06:31; Start 11/29/18 at 07:00; Stop 12/01/18 at 19:57; Status DC Sodium Chloride 500 ml @ 500 mls/hr 1X ONCE IV Last administered on 11/29/18at 07:29; Start 11/29/18 at 07:30; Stop 11/29/18 at 08:29; Status DC Lactobacillus Rhamnosus (Culturelle) 1 cap BID PO Last administered on 12/01/18at 21:02; Start 11/29/18 at 21:00 Hydrocortisone Sodium Succinate (Solu-CORTEF) 100 mg 1X ONCE IV Last administered on 11/29/18at 11:59; Start 11/29/18 at 11:45; Stop 11/29/18 at 11:46; Status DC Sodium Chloride (Normal Saline Flush) 10 ml QSHIFT PRN IV AFTER MEDS AND BLOOD DRAWS; Start 11/29/18 at 11:15 Norepinephrine Bitartrate 250 ml @ 0 mls/hr CONT PRN IV PER PROTOCOL Last administered on 11/29/18at 14:05; Start 11/29/18 at 11:15; Stop 12/01/18 at 15:50; Status DC Sodium Chloride 1,000 ml @ 125 mls/hr Q8H IV Last administered on 12/01/18at 01:11; Start 11/29/18 at 19:00; Stop 12/01/18 at 15:26; Status DC Tamsulosin HCl (Flomax) 0.4 mg 1X ONCE PO Last administered on 11/29/18at 20:07; Start 11/29/18 at 19:45; Stop 11/29/18 at 19:54; Status DC Tamsulosin HCl (Flomax) 0.4 mg DAILY PO Last administered on 12/01/18at 08:08; Start 11/30/18 at 09:00 Ondansetron HCl (Zofran) 4 mg PRN Q6HRS PRN IV NAUSEA/VOMITING; Start 11/30/18 at 13:15; Stop 12/01/18 at 13:14; Status DC Fentanyl Citrate (Fentanyl 2ml Vial) 25 mcg PRN Q5MIN PRN IV MILD PAIN 1-3; Start 11/30/18 at 13:15; Stop 12/01/18 at 13:14; Status DC Fentanyl Citrate (Fentanyl 2ml Vial) 50 mcg PRN Q5MIN PRN IV MODERATE TO SEVERE PAIN; Start 11/30/18 at 13:15; Stop 12/01/18 at 13:14; Status DC Morphine Sulfate (Morphine Sulfate) 1 mg PRN Q10MIN PRN IV SEVERE PAIN 7-10; Start 11/30/18 at 13:15; Stop 12/01/18 at 13:14; Status DC Ringer's Solution 1,000 ml @ 30 mls/hr Q24H IV Last administered on 11/30/18at 15:45; Start 11/30/18 at 13:09; Stop 12/01/18 at 01:08; Status DC Hydromorphone HCl (Dilaudid) 0.5 mg PRN Q10MIN PRN IV SEV PAIN, Second choice; Start 11/30/18 at 13:15; Stop 12/01/18 at 13:14; Status DC Prochlorperazine Edisylate (Compazine) 5 mg PACU PRN PRN IV NAUSEA, MRX1; Start 11/30/18 at 13:15; Stop 12/01/18 at 13:14; Status DC Propofol 20 ml @ As Directed STK-MED ONCE IV ; Start 11/30/18 at 18:40; Stop 11/30/18 at 18:41; Status DC Lidocaine HCl (Lidocaine Pf 2% Vial) 5 ml STK-MED ONCE .ROUTE ; Start 11/30/18 at 18:40; Stop 11/30/18 at 18:41; Status DC Ondansetron HCl (Zofran) 4 mg STK-MED ONCE .ROUTE ; Start 11/30/18 at 18:40; Stop 11/30/18 at 18:41; Status DC Dexamethasone Sodium Phosphate (Decadron) 4 mg STK-MED ONCE .ROUTE ; Start 11/30/18 at 18:40; Stop 11/30/18 at 18:41; Status DC Fentanyl Citrate (Fentanyl 2ml Vial) 100 mcg STK-MED ONCE .ROUTE ; Start 11/30/18 at 18:40; Stop 11/30/18 at 18:41; Status DC Sevoflurane (Ultane) 30 ml STK-MED ONCE IH ; Start 11/30/18 at 18:40; Stop 11/30/18 at 18:41; Status DC Iohexol (Omnipaque 300 Mg/ml) 50 ml STK-MED ONCE IV Last administered on 11/30/18at 18:35; Start 11/30/18 at 18:35; Stop 11/30/18 at 19:23; Status DC Iohexol (Omnipaque 300 Mg/ml) 50 ml STK-MED ONCE .ROUTE ; Start 11/30/18 at 18:33; Stop 11/30/18 at 19:33; Status DC Meropenem 500 mg/ Sodium Chloride 50 ml @ 100 mls/hr Q6HRS IV Last administered on 12/02/18at 05:31; Start 12/02/18 at 00:00 Meropenem 500 mg/ Sodium Chloride 50 ml @ 100 mls/hr 1X ONCE IV Last administered on 12/01/18at 20:45; Start 12/01/18 at 20:45; Stop 12/01/18 at 21:14; Status DC Active Scripts Active Reported Tamiflu (Oseltamivir Phosphate) 30 Mg Capsule 30 Mg PO DAILY Vitals/I & O Vital Sign - Last 24 Hours 12/01/18 12/01/18 12/01/18 12/01/18 09:00 10:00 12:00 16:00 Pulse 62 66 67 Resp 12 18 B/P (MAP) 99/61 (74) 116/62 (80) 114/60 (78) Pulse Ox 94 95 95 O2 Delivery Room Air Room Air Room Air Room Air 12/01/18 12/01/18 12/01/18 12/02/18 19:21 19:45 23:25 04:00 Temp 98.1 98.2 98.2 98.1 98.2 98.2 Pulse 60 65 64 Resp 16 16 16 B/P (MAP) 120/72 (88) 118/64 (82) 119/66 (83) Pulse Ox 95 32 O2 Delivery Room Air Room Air Room Air Room Air Intake and Output0 12/01/18 12/01/18 12/02/18 15:00 23:00 07:00 Intake Total 980 ml 600 ml Output Total 900 ml 275 ml 1600 ml Balance 80 ml 325 ml -1600 ml EMANUEL RAMOS MD December 02, 2018 08:15
[2018-12-02] MEDS: LACTOBACILLUS RHAMNOSUS GG 1 CAPSULE. PO SCH ×2 (10:28→20:34)
[2018-12-02] MEDS: TAMSULOSIN 0.4 MG CAP.ER.24H. PO SCH (10:44)
[2018-12-02 12:00] VITALS: BP 111/65
--- NOTE | 2018-12-02 12:28 | PDOC ---
PROGRESS NOTE SUBJECTIVE: ROS: ROS: RESPIRATORY: Shortness of breath denies. Cough denies. UROLOGY: Denies blood in urine. Denies difficulty urinating HPI: Urinating every 30 minutes. Otherwise no complaints. Problems: Problems Medical Problems: (1) Acute renal failure Status: Acute (2) Hypoglycemia Status: Acute (3) Hypotension Status: Acute (4) Septic shock Status: Acute (5) UTI (urinary tract infection) Status: Acute OBJECTIVE: Vital Signs: Vital Signs Date Time Temp Pulse Resp B/P (MAP) Pulse Ox O2 Delivery O2 Flow Rate FiO2 12/02/18 12:00 98.7 69 18 111/65 (80) 93 Room Air 98.7 12/02/18 08:00 98.0 72 20 136/67 (90) 92 Room Air 98.0 12/02/18 04:00 98.2 64 16 119/66 (83) 32 Room Air 98.2 12/01/18 23:25 98.2 65 16 118/64 (82) 95 Room Air 98.2 12/01/18 19:45 Room Air 12/01/18 19:21 98.1 60 16 120/72 (88) Room Air 98.1 12/01/18 16:00 Room Air I & O Intake and Output 12/02/18 07:00 Intake Total 1580 ml Output Total 2775 ml Balance -1195 ml Intake Oral 980 ml IV Total 600 ml Output Urine Total 2775 ml # Voids 1 PHYSICAL EXAM: Physical Exam: General: Pleasant, no acute distress, well groomed Skin: no rashes or skin lesions on visualized skin Psych: normal mood, affect. Alert and oriented x 3. LABS: Laboratory Tests Test 11/30/18 04:30 12/01/18 03:25 12/01/18 05:00 12/02/18 04:40 White Blood Count 9.0 x10^3/uL (4.0-11.0) 5.7 x10^3/uL (4.0-11.0) 9.5 x10^3/uL (4.0-11.0) Red Blood Count 3.53 x10^6/uL (3.50-5.40) 3.71 x10^6/uL (3.50-5.40) 3.86 x10^6/uL (3.50-5.40) Hemoglobin 10.1 g/dL (12.0-15.5) 10.8 g/dL (12.0-15.5) 10.9 g/dL (12.0-15.5) Hematocrit 30.4 % (36.0-47.0) 31.6 % (36.0-47.0) 32.7 % (36.0-47.0) Mean Corpuscular Volume 86 fL (79-100) 85 fL (79-100) 85 fL (79-100) Mean Corpuscular Hemoglobin 29 pg (25-35) 29 pg (25-35) 28 pg (25-35) Mean Corpuscular Hemoglobin Concent 33 g/dL (31-37) 34 g/dL (31-37) 33 g/dL (31-37) Red Cell Distribution Width 14.9 % (11.5-14.5) 14.9 % (11.5-14.5) 14.5 % (11.5-14.5) Platelet Count 93 x10^3/uL (140-400) 117 x10^3/uL (140-400) 156 x10^3/uL (140-400) Neutrophils (%) (Auto) 69 % (31-73) 77 % (31-73) 61 % (31-73) Lymphocytes (%) (Auto) 18 % (24-48) 16 % (24-48) 28 % (24-48) Monocytes (%) (Auto) 11 % (0-9) 6 % (0-9) 10 % (0-9) Eosinophils (%) (Auto) 1 % (0-3) 0 % (0-3) 1 % (0-3) Basophils (%) (Auto) 1 % (0-3) 0 % (0-3) 0 % (0-3) Neutrophils # (Auto) 6.2 x10^3uL (1.8-7.7) 4.4 x10^3uL (1.8-7.7) 5.8 x10^3uL (1.8-7.7) Lymphocytes # (Auto) 1.7 x10^3/uL (1.0-4.8) 0.9 x10^3/uL (1.0-4.8) 2.6 x10^3/uL (1.0-4.8) Monocytes # (Auto) 1.0 x10^3/uL (0.0-1.1) 0.4 x10^3/uL (0.0-1.1) 1.0 x10^3/uL (0.0-1.1) Eosinophils # (Auto) 0.1 x10^3/uL (0.0-0.7) 0.0 x10^3/uL (0.0-0.7) 0.1 x10^3/uL (0.0-0.7) Basophils # (Auto) 0.0 x10^3/uL (0.0-0.2) 0.0 x10^3/uL (0.0-0.2) 0.0 x10^3/uL (0.0-0.2) Sodium Level 146 mmol/L (136-145) 143 mmol/L (136-145) 146 mmol/L (136-145) Potassium Level 3.5 mmol/L (3.5-5.1) 3.6 mmol/L (3.5-5.1) 3.4 mmol/L (3.5-5.1) Chloride Level 113 mmol/L (98-107) 109 mmol/L (98-107) 110 mmol/L (98-107) Carbon Dioxide Level 22 mmol/L (21-32) 24 mmol/L (21-32) 26 mmol/L (21-32) Anion Gap 11 (6-14) 10 (6-14) 10 (6-14) Blood Urea Nitrogen 16 mg/dL (7-20) 13 mg/dL (7-20) 12 mg/dL (7-20) Creatinine 0.7 mg/dL (0.6-1.0) 0.7 mg/dL (0.6-1.0) 0.7 mg/dL (0.6-1.0) Estimated GFR (Cockcroft-Gault) 85.6 85.6 85.6 BUN/Creatinine Ratio 23 (6-20) 19 (6-20) 17 (6-20) Glucose Level 88 mg/dL (70-99) 144 mg/dL (70-99) 80 mg/dL (70-99) Calcium Level 8.3 mg/dL (8.5-10.1) 8.0 mg/dL (8.5-10.1) 8.5 mg/dL (8.5-10.1) Total Bilirubin 0.3 mg/dL (0.2-1.0) 0.4 mg/dL (0.2-1.0) 0.4 mg/dL (0.2-1.0) Direct Bilirubin 0.2 mg/dL (0.0-0.2) Aspartate Amino Transf (AST/SGOT) 138 U/L (15-37) 73 U/L (15-37) 32 U/L (15-37) Alanine Aminotransferase (ALT/SGPT) 170 U/L (14-59) 143 U/L (14-59) 107 U/L (14-59) Alkaline Phosphatase 209 U/L (46-116) 208 U/L (46-116) 175 U/L (46-116) Total Protein 5.3 g/dL (6.4-8.2) 5.9 g/dL (6.4-8.2) 5.8 g/dL (6.4-8.2) Albumin 1.7 g/dL (3.4-5.0) 1.8 g/dL (3.4-5.0) 1.9 g/dL (3.4-5.0) Albumin/Globulin Ratio 0.5 (1.0-1.7) 0.4 (1.0-1.7) 0.5 (1.0-1.7) Urine Collection Type U cath Urine Color Yellow Urine Clarity Turbid Urine pH 6.0 Urine Specific Kenneth 1.010 Urine Protein 30 mg/dL (NEG-TRACE) Urine Glucose (UA) Negative mg/dL (NEG) Urine Ketones (Stick) Negative mg/dL (NEG) Urine Blood Large (NEG) Urine Nitrite Negative (NEG) Urine Bilirubin Negative (NEG) Urine Urobilinogen Dipstick 0.2 mg/dL (0.2 mg/dL) Urine Leukocyte Esterase Large (NEG) Urine RBC Fobs /HPF (0-2) Urine WBC Tntc /HPF (0-4) Urine Bacteria Many /HPF (0-FEW) Magnesium Level 1.5 mg/dL (1.8-2.4) Microbiology 12/01/18 Blood Culture - Preliminary, Resulted NO GROWTH AFTER 1 DAY 11/28/18 Urine Culture - Final, Complete 11/28/18 Urine Culture Result 1 (MARGARITA) - Final, Complete 11/28/18 Antimicrobic Susceptibility - Final, Complete MEDICATIONS: Current Medications Medications (Trade) Dose Ordered Sig/Ella Start Time Stop Time Status Last Admin Dose Admin Acetaminophen (Tylenol) 650 mg PRN Q4HRS PRN 11/28/18 12:30 11/29/18 12:29 DC 11/29/18 01:07 650 MG Cefepime HCl (Maxipime) 1 gm 1X ONCE 11/28/18 11:15 11/28/18 11:16 DC 11/28/18 11:26 1 GM Ceftriaxone Sodium (Rocephin) 2 gm Q24H 11/29/18 07:00 12/01/18 19:57 DC 12/01/18 06:31 2 GM Dexamethasone Sodium Phosphate (Decadron) 4 mg STK-MED ONCE 11/30/18 18:40 11/30/18 18:41 DC Fentanyl Citrate (Fentanyl 2ml Vial) 100 mcg STK-MED ONCE 11/30/18 18:40 11/30/18 18:41 DC Hydrocortisone Sodium Succinate (Solu-CORTEF) 100 mg 1X ONCE 11/29/18 11:45 11/29/18 11:46 DC 11/29/18 11:59 100 MG Hydromorphone HCl (Dilaudid) 0.5 mg PRN Q10MIN PRN 11/30/18 13:15 12/01/18 13:14 DC Iohexol (Omnipaque 300 Mg/ml) 50 ml STK-MED ONCE 11/30/18 18:33 11/30/18 19:33 DC Ketorolac Tromethamine (Toradol 30mg Vial) 30 mg STK-MED ONCE 11/28/18 10:36 11/28/18 10:37 DC Lactobacillus Rhamnosus (Culturelle) 1 cap BID 11/29/18 21:00 12/02/18 10:28 1 CAP Lidocaine HCl (Lidocaine Pf 2% Vial) 5 ml STK-MED ONCE 11/30/18 18:40 11/30/18 18:41 DC Magnesium Sulfate/ Dextrose 100 ml @ 25 mls/hr 1X ONCE 12/02/18 08:15 12/02/18 12:14 DC 12/02/18 10:23 25 MLS/HR Meropenem 500 mg/ Sodium Chloride 50 ml @ 100 mls/hr 1X ONCE 12/01/18 20:45 12/01/18 21:14 DC 12/01/18 20:45 100 MLS/HR Morphine Sulfate (Morphine Sulfate) 1 mg PRN Q10MIN PRN 11/30/18 13:15 12/01/18 13:14 DC Norepinephrine Bitartrate 250 ml @ 0 mls/hr CONT PRN 11/29/18 11:15 12/01/18 15:50 DC 11/29/18 14:05 1.9 MLS/HR Ondansetron HCl (Zofran) 4 mg STK-MED ONCE 11/30/18 18:40 11/30/18 18:41 DC Potassium Chloride/Dextrose/ Sod Cl 1,000 ml @ 80 mls/hr 1X ONCE 12/02/18 08:15 12/02/18 20:44 12/02/18 10:22 80 MLS/HR Prochlorperazine Edisylate (Compazine) 5 mg PACU PRN PRN 11/30/18 13:15 12/01/18 13:14 DC Propofol 20 ml @ As Directed STK-MED ONCE 11/30/18 18:40 11/30/18 18:41 DC Ringer's Solution 1,000 ml @ 30 mls/hr Q24H 11/30/18 13:09 12/01/18 01:08 DC 11/30/18 15:45 30 MLS/HR Sevoflurane (Ultane) 30 ml STK-MED ONCE 11/30/18 18:40 11/30/18 18:41 DC Sodium Chloride 1,000 ml @ 125 mls/hr Q8H 11/29/18 19:00 12/01/18 15:26 DC 12/01/18 01:11 125 MLS/HR Sodium Chloride (Normal Saline Flush) 10 ml QSHIFT PRN 11/29/18 11:15 Tamsulosin HCl (Flomax) 0.4 mg DAILY 11/30/18 09:00 12/02/18 10:44 0.4 MG Vancomycin HCl (Vanco Per Pharmacy) 1 each PRN DAILY PRN 11/28/18 11:00 11/30/18 07:25 DC 11/29/18 09:52 1 EACH Vancomycin HCl (Vancomycin Trough Level) 1 each 1X ONCE 11/30/18 11:00 11/30/18 11:00 DC Vancomycin HCl 1.5 gm/Sodium Chloride 500 ml @ 250 mls/hr 1X ONCE 11/28/18 11:15 11/28/18 13:14 DC 11/28/18 11:31 250 MLS/HR Vancomycin HCl 1 gm/Sodium Chloride 250 ml @ 250 mls/hr Q24H 11/29/18 11:30 11/30/18 07:25 DC 11/29/18 11:58 250 MLS/HR ASSESSMENT & PLAN s/p left ureteral stent placement. Ok for d/c from urology perspective. We will arrange ureteroscopy as outpatient in approx 2 weeks. Antibiotics for sepsis per hospitalist. Try oxybutinin for stent-related bladder spasms. Problem List: Problems Medical Problems: (1) Acute renal failure Status: Acute (2) Hypoglycemia Status: Acute (3) Hypotension Status: Acute (4) Septic shock Status: Acute (5) UTI (urinary tract infection) Status: Acute CATHY DOTSON MD December 02, 2018 12:28
--- NOTE | 2018-12-02 14:39 | PDOC ---
Infectious Disease Note Subjective Subjective c/o frequent urination interrupting sleep Feeling ok otherwise Denies F/C/S/N/V/SOA ROS ROS per HPI Vital Sign Vital Signs Vital Signs Date Time Temp Pulse Resp B/P (MAP) Pulse Ox O2 Delivery O2 Flow Rate FiO2 12/02/18 12:00 98.7 69 18 111/65 (80) 93 Room Air 98.7 Physical Exam PHYSICAL EXAM GENERAL: lying down, alert, smiling HEENT: Oral cavity, pharynx was clear. NECK: Supple, no JVD. LUNGS: Clear to auscultation. No wheeze, no rhonchi. HEART: S1, S2. ABDOMEN: Soft, nontender, nondistended, no guarding, no rebound. No CVA tenderness. EXTREMITIES: Without clubbing or cyanosis. No gross edema. SKIN: Warm to touch without signs of rash. NEUROLOGIC: Alert, responding appropriately Labs Lab Laboratory Tests Test 12/02/18 04:40 White Blood Count 9.5 x10^3/uL (4.0-11.0) Red Blood Count 3.86 x10^6/uL (3.50-5.40) Hemoglobin 10.9 g/dL (12.0-15.5) Hematocrit 32.7 % (36.0-47.0) Mean Corpuscular Volume 85 fL (79-100) Mean Corpuscular Hemoglobin 28 pg (25-35) Mean Corpuscular Hemoglobin Concent 33 g/dL (31-37) Red Cell Distribution Width 14.5 % (11.5-14.5) Platelet Count 156 x10^3/uL (140-400) Neutrophils (%) (Auto) 61 % (31-73) Lymphocytes (%) (Auto) 28 % (24-48) Monocytes (%) (Auto) 10 % (0-9) Eosinophils (%) (Auto) 1 % (0-3) Basophils (%) (Auto) 0 % (0-3) Neutrophils # (Auto) 5.8 x10^3uL (1.8-7.7) Lymphocytes # (Auto) 2.6 x10^3/uL (1.0-4.8) Monocytes # (Auto) 1.0 x10^3/uL (0.0-1.1) Eosinophils # (Auto) 0.1 x10^3/uL (0.0-0.7) Basophils # (Auto) 0.0 x10^3/uL (0.0-0.2) Sodium Level 146 mmol/L (136-145) Potassium Level 3.4 mmol/L (3.5-5.1) Chloride Level 110 mmol/L (98-107) Carbon Dioxide Level 26 mmol/L (21-32) Anion Gap 10 (6-14) Blood Urea Nitrogen 12 mg/dL (7-20) Creatinine 0.7 mg/dL (0.6-1.0) Estimated GFR (Cockcroft-Gault) 85.6 BUN/Creatinine Ratio 17 (6-20) Glucose Level 80 mg/dL (70-99) Calcium Level 8.5 mg/dL (8.5-10.1) Magnesium Level 1.5 mg/dL (1.8-2.4) Total Bilirubin 0.4 mg/dL (0.2-1.0) Aspartate Amino Transf (AST/SGOT) 32 U/L (15-37) Alanine Aminotransferase (ALT/SGPT) 107 U/L (14-59) Alkaline Phosphatase 175 U/L (46-116) Total Protein 5.8 g/dL (6.4-8.2) Albumin 1.9 g/dL (3.4-5.0) Albumin/Globulin Ratio 0.5 (1.0-1.7) Micro Microbiology 12/01/18 Blood Culture - Preliminary, Resulted NO GROWTH AFTER 1 DAY 11/28/18 Urine Culture - Final, Complete 11/28/18 Urine Culture Result 1 (MARGARITA) - Final, Complete 11/28/18 Antimicrobic Susceptibility - Final, Complete Objective Assessment GNR Sepsis - POA - 11/28 and 11/29 better - looks well. Renal stone on left. Ordered U/S 11/29- then KUB and Urology consult 11/29. - s/p Cystoscopy with left ureteral stent placement and left retrograde pyelogram 11/30 Bandemia E. coli UTI - POA 11/28 Reported influenza - neg here Transaminitis - ? sec to hypotension TATIANA - better Plan Plan of Care Meropenem, 12/01 Previously on Rocephin F/u repeat cults and ID and sensitivities Supportive care Pt seen and examined Dysuria resolved GNR BC ID pending E. coli UTI - POA 11/28 R to Ceftriaxone cont RJ Woods APRN December 02, 2018 14:39 KEARA JAIMES MD December 02, 2018 15:10
[2018-12-02 16:00] VITALS: BP 102/62
[2018-12-02 19:47] VITALS: BP 113/75
[2018-12-02 23:00] VITALS: BP 107/65
[2018-12-03] MEDS: OXYBUTYNIN CHLORIDE 5 MG TABLET PO PRN ×2 (01:33→08:54)
[2018-12-03 03:00] VITALS: BP 109/62
[2018-12-03] MEDS: MEROPENEM 500 MG in IV NORMAL SALINE 50ML 50 ML IV SCH ×4 (05:01→23:20)
[2018-12-03 07:00] VITALS: BP 111/63
--- NOTE | 2018-12-03 08:38 | PDOC ---
PROGRESS NOTES Chief Complaint Chief Complaint UTI with sepsis Gram negative bacteremia CKD stage 2-3 6 mm left UPJ calculus is seen which is causing mild to moderate obstruction of the left collecting system - s/p Cystoscopy with left ureteral stent placement and left retrograde pyelogram.11/30 Transaminitis, shock liver Moderate to possibly moderately severe mitral regurgitation. mild tricuspid regurgitation. The PA pressure was estimated at 40 mmHg. Elevated troponin i Plan laser/stone extraction. IV antibiotics IV fluids DVT prophylaxis full code home meds frequent labs ID consult - merrem urology consult 39 min patient care History of Present Illness History of Present Illness Patient is a pleasant middle-aged female who presented with flank pain, fever and chills and apparently was being treated for influenza prior to admission. Found with e. coli UTI and GNR bacteremia. Admitted to ICU for severe sepsis, she has associated nausea occurring for several days describes as agonizing Feeling better today, has increased urinary frequency, this is bothering her. GNR in blood looks like e. coli, ESBL, changed to merrem per ID recommendations. She really wants to leave. Advised she should be on IV antibiotics. Vitals Vitals Vital Signs Date Time Temp Pulse Resp B/P (MAP) Pulse Ox O2 Delivery O2 Flow Rate FiO2 12/03/18 07:00 98.9 75 18 111/63 (79) 93 Room Air 98.9 Physical Exam Physical Exam GENERAL: lying down, alert, smiling HEENT: Oral cavity, pharynx was clear. NECK: Supple, no JVD. LUNGS: Clear to auscultation. No wheeze, no rhonchi. HEART: S1, S2. ABDOMEN: Soft, nontender, nondistended, no guarding, no rebound. No CVA tenderness. EXTREMITIES: Without clubbing or cyanosis. No gross edema. SKIN: Warm to touch without signs of rash. NEUROLOGIC: Alert, responding appropriately General: Alert, Oriented X3, Cooperative, No acute distress Heart: Regular rate, Normal S1, Normal S2 Lungs: Clear Abdomen: Normal bowel sounds, Soft, No tenderness, No hepatosplenomegaly Extremities: No edema, Normal pulses Skin: No breakdown, No significant lesion Assessment and Plan Assessmemt and Plan Problems Medical Problems: (1) Acute renal failure Status: Acute (2) Hypoglycemia Status: Acute (3) Hypotension Status: Acute (4) Septic shock Status: Acute (5) UTI (urinary tract infection) Status: Acute Comment Review of Relevant I have reviewed the following items chavez (where applicable) has been applied. Labs Laboratory Tests Test 12/02/18 04:40 White Blood Count 9.5 x10^3/uL (4.0-11.0) Red Blood Count 3.86 x10^6/uL (3.50-5.40) Hemoglobin 10.9 g/dL (12.0-15.5) Hematocrit 32.7 % (36.0-47.0) Mean Corpuscular Volume 85 fL (79-100) Mean Corpuscular Hemoglobin 28 pg (25-35) Mean Corpuscular Hemoglobin Concent 33 g/dL (31-37) Red Cell Distribution Width 14.5 % (11.5-14.5) Platelet Count 156 x10^3/uL (140-400) Neutrophils (%) (Auto) 61 % (31-73) Lymphocytes (%) (Auto) 28 % (24-48) Monocytes (%) (Auto) 10 % (0-9) Eosinophils (%) (Auto) 1 % (0-3) Basophils (%) (Auto) 0 % (0-3) Neutrophils # (Auto) 5.8 x10^3uL (1.8-7.7) Lymphocytes # (Auto) 2.6 x10^3/uL (1.0-4.8) Monocytes # (Auto) 1.0 x10^3/uL (0.0-1.1) Eosinophils # (Auto) 0.1 x10^3/uL (0.0-0.7) Basophils # (Auto) 0.0 x10^3/uL (0.0-0.2) Sodium Level 146 mmol/L (136-145) Potassium Level 3.4 mmol/L (3.5-5.1) Chloride Level 110 mmol/L (98-107) Carbon Dioxide Level 26 mmol/L (21-32) Anion Gap 10 (6-14) Blood Urea Nitrogen 12 mg/dL (7-20) Creatinine 0.7 mg/dL (0.6-1.0) Estimated GFR (Cockcroft-Gault) 85.6 BUN/Creatinine Ratio 17 (6-20) Glucose Level 80 mg/dL (70-99) Calcium Level 8.5 mg/dL (8.5-10.1) Magnesium Level 1.5 mg/dL (1.8-2.4) Total Bilirubin 0.4 mg/dL (0.2-1.0) Aspartate Amino Transf (AST/SGOT) 32 U/L (15-37) Alanine Aminotransferase (ALT/SGPT) 107 U/L (14-59) Alkaline Phosphatase 175 U/L (46-116) Total Protein 5.8 g/dL (6.4-8.2) Albumin 1.9 g/dL (3.4-5.0) Albumin/Globulin Ratio 0.5 (1.0-1.7) Microbiology 12/01/18 Blood Culture - Preliminary, Resulted NO GROWTH AFTER 2 DAYS 12/01/18 Urine Culture - Preliminary, Resulted 12/01/18 Urine Culture Result 1 (MARGARITA) - Preliminary, Resulted Medications Current Medications Sodium Chloride 1,000 ml @ 1,440 mls/hr Q42M IV Last administered on 11/28/18at 10:40; Start 11/28/18 at 10:45; Stop 11/28/18 at 11:45; Status DC Ketorolac Tromethamine (Toradol 30mg Vial) 30 mg 1X ONCE IV Last administered on 11/28/18at 10:41; Start 11/28/18 at 10:45; Stop 11/28/18 at 10:46; Status DC Ondansetron HCl (Zofran) 4 mg 1X ONCE IV Last administered on 11/28/18at 10:41; Start 11/28/18 at 10:45; Stop 11/28/18 at 10:46; Status DC Ondansetron HCl (Zofran) 4 mg STK-MED ONCE .ROUTE ; Start 11/28/18 at 10:36; Stop 11/28/18 at 10:37; Status DC Ketorolac Tromethamine (Toradol 30mg Vial) 30 mg STK-MED ONCE .ROUTE ; Start 11/28/18 at 10:36; Stop 11/28/18 at 10:37; Status DC Vancomycin HCl (Vanco Per Pharmacy) 1 each PRN DAILY PRN MC SEE COMMENTS Last administered on 11/29/18at 09:52; Start 11/28/18 at 11:00; Stop 11/30/18 at 07:25; Status DC Cefepime HCl (Maxipime) 1 gm 1X ONCE IVP Last administered on 11/28/18 11:26; Start 11/28/18 at 11:15; Stop 11/28/18 at 11:16; Status DC Sodium Chloride 1,000 ml @ 1,000 mls/hr 1X ONCE IV Last administered on 11/28/18at 11:04; Start 11/28/18 at 11:00; Stop 11/28/18 at 11:59; Status DC Vancomycin HCl 1.5 gm/Sodium Chloride 500 ml @ 250 mls/hr 1X ONCE IV Last administered on 11/28/18at 11:31; Start 11/28/18 at 11:15; Stop 11/28/18 at 13:14; Status DC Sodium Chloride 1,000 ml @ 125 mls/hr 1X ONCE IV Last administered on 11/28/18at 12:28; Start 11/28/18 at 12:15; Stop 11/28/18 at 20:14; Status DC Ondansetron HCl (Zofran) 4 mg PRN Q8HRS PRN IV NAUSEA/VOMITING; Start 11/28/18 at 12:30; Stop 11/29/18 at 12:29; Status DC Morphine Sulfate (Morphine Sulfate) 2 mg PRN Q2HR PRN IV PAIN; Start 11/28/18 at 12:30; Stop 11/29/18 at 12:29; Status DC Sodium Chloride 1,000 ml @ 0 mls/hr Q0M IV ; Start 11/28/18 at 12:29; Stop 11/29/18 at 12:28; Status DC Acetaminophen (Tylenol) 650 mg PRN Q4HRS PRN PO FEVER Last administered on 11/29/18at 01:07; Start 11/28/18 at 12:30; Stop 11/29/18 at 12:29; Status DC Sodium Chloride 1,000 ml @ 125 mls/hr 1X ONCE IV Last administered on 11/28/18at 12:30; Start 11/28/18 at 12:30; Stop 11/28/18 at 20:29; Status DC Vancomycin HCl 1 gm/Sodium Chloride 250 ml @ 250 mls/hr Q24H IV Last administered on 11/29/18at 11:58; Start 11/29/18 at 11:30; Stop 11/30/18 at 07:25; Status DC Vancomycin HCl (Vancomycin Trough Level) 1 each 1X ONCE MC ; Start 11/30/18 at 11:00; Stop 11/30/18 at 11:00; Status DC Ceftriaxone Sodium (Rocephin) 2 gm Q24H IVP Last administered on 12/01/18at 06:31; Start 11/29/18 at 07:00; Stop 12/01/18 at 19:57; Status DC Sodium Chloride 500 ml @ 500 mls/hr 1X ONCE IV Last administered on 11/29/18at 07:29; Start 11/29/18 at 07:30; Stop 11/29/18 at 08:29; Status DC Lactobacillus Rhamnosus (Culturelle) 1 cap BID PO Last administered on 12/02/18at 20:34; Start 11/29/18 at 21:00 Hydrocortisone Sodium Succinate (Solu-CORTEF) 100 mg 1X ONCE IV Last administered on 11/29/18at 11:59; Start 11/29/18 at 11:45; Stop 11/29/18 at 11:46; Status DC Sodium Chloride (Normal Saline Flush) 10 ml QSHIFT PRN IV AFTER MEDS AND BLOOD DRAWS; Start 11/29/18 at 11:15 Norepinephrine Bitartrate 250 ml @ 0 mls/hr CONT PRN IV PER PROTOCOL Last administered on 11/29/18at 14:05; Start 11/29/18 at 11:15; Stop 12/01/18 at 15:50; Status DC Sodium Chloride 1,000 ml @ 125 mls/hr Q8H IV Last administered on 12/01/18at 01:11; Start 11/29/18 at 19:00; Stop 12/01/18 at 15:26; Status DC Tamsulosin HCl (Flomax) 0.4 mg 1X ONCE PO Last administered on 11/29/18at 20:07; Start 11/29/18 at 19:45; Stop 11/29/18 at 19:54; Status DC Tamsulosin HCl (Flomax) 0.4 mg DAILY PO Last administered on 12/02/18at 10:44; Start 11/30/18 at 09:00 Ondansetron HCl (Zofran) 4 mg PRN Q6HRS PRN IV NAUSEA/VOMITING; Start 11/30/18 at 13:15; Stop 12/01/18 at 13:14; Status DC Fentanyl Citrate (Fentanyl 2ml Vial) 25 mcg PRN Q5MIN PRN IV MILD PAIN 1-3; Start 11/30/18 at 13:15; Stop 12/01/18 at 13:14; Status DC Fentanyl Citrate (Fentanyl 2ml Vial) 50 mcg PRN Q5MIN PRN IV MODERATE TO SEVERE PAIN; Start 11/30/18 at 13:15; Stop 12/01/18 at 13:14; Status DC Morphine Sulfate (Morphine Sulfate) 1 mg PRN Q10MIN PRN IV SEVERE PAIN 7-10; Start 11/30/18 at 13:15; Stop 12/01/18 at 13:14; Status DC Ringer's Solution 1,000 ml @ 30 mls/hr Q24H IV Last administered on 11/30/18at 15:45; Start 11/30/18 at 13:09; Stop 12/01/18 at 01:08; Status DC Hydromorphone HCl (Dilaudid) 0.5 mg PRN Q10MIN PRN IV SEV PAIN, Second choice; Start 11/30/18 at 13:15; Stop 12/01/18 at 13:14; Status DC Prochlorperazine Edisylate (Compazine) 5 mg PACU PRN PRN IV NAUSEA, MRX1; Start 11/30/18 at 13:15; Stop 12/01/18 at 13:14; Status DC Propofol 20 ml @ As Directed STK-MED ONCE IV ; Start 11/30/18 at 18:40; Stop 11/30/18 at 18:41; Status DC Lidocaine HCl (Lidocaine Pf 2% Vial) 5 ml STK-MED ONCE .ROUTE ; Start 11/30/18 at 18:40; Stop 11/30/18 at 18:41; Status DC Ondansetron HCl (Zofran) 4 mg STK-MED ONCE .ROUTE ; Start 11/30/18 at 18:40; Stop 11/30/18 at 18:41; Status DC Dexamethasone Sodium Phosphate (Decadron) 4 mg STK-MED ONCE .ROUTE ; Start 11/30/18 at 18:40; Stop 11/30/18 at 18:41; Status DC Fentanyl Citrate (Fentanyl 2ml Vial) 100 mcg STK-MED ONCE .ROUTE ; Start 11/30/18 at 18:40; Stop 11/30/18 at 18:41; Status DC Sevoflurane (Ultane) 30 ml STK-MED ONCE IH ; Start 11/30/18 at 18:40; Stop 11/30/18 at 18:41; Status DC Iohexol (Omnipaque 300 Mg/ml) 50 ml STK-MED ONCE IV Last administered on 11/30/18at 18:35; Start 11/30/18 at 18:35; Stop 11/30/18 at 19:23; Status DC Iohexol (Omnipaque 300 Mg/ml) 50 ml STK-MED ONCE .ROUTE ; Start 11/30/18 at 18:33; Stop 11/30/18 at 19:33; Status DC Meropenem 500 mg/ Sodium Chloride 50 ml @ 100 mls/hr Q6HRS IV Last administered on 12/03/18at 05:01; Start 12/02/18 at 00:00 Meropenem 500 mg/ Sodium Chloride 50 ml @ 100 mls/hr 1X ONCE IV Last administered on 12/01/18at 20:45; Start 12/01/18 at 20:45; Stop 12/01/18 at 21:14; Status DC Magnesium Sulfate/ Dextrose 100 ml @ 25 mls/hr 1X ONCE IV Last administered on 12/02/18at 10:23; Start 12/02/18 at 08:15; Stop 12/02/18 at 12:14; Status DC Potassium Chloride/Dextrose/ Sod Cl 1,000 ml @ 80 mls/hr 1X ONCE IV Last administered on 12/02/18at 10:22; Start 12/02/18 at 08:15; Stop 12/02/18 at 20:44; Status DC Oxybutynin Chloride (Ditropan) 5 mg PRN TID PRN PO frequent urination Last administered on 12/03/18at 01:33; Start 12/02/18 at 12:30 Active Scripts Active Reported Tamiflu (Oseltamivir Phosphate) 30 Mg Capsule 30 Mg PO DAILY Vitals/I & O Vital Sign - Last 24 Hours 12/02/18 12/02/18 12/02/18 12/02/18 12:00 16:00 19:47 19:58 Temp 98.7 98.3 98.5 98.7 98.3 98.5 Pulse 69 69 73 Resp 18 18 18 B/P (MAP) 111/65 (80) 102/62 (75) 113/75 (88) Pulse Ox 93 92 93 O2 Delivery Room Air Room Air Room Air Room Air 12/02/18 12/03/18 12/03/18 23:00 03:00 07:00 Temp 98.4 98.4 98.9 98.4 98.4 98.9 Pulse 74 76 75 Resp 18 18 18 B/P (MAP) 107/65 (79) 109/62 (78) 111/63 (79) Pulse Ox 93 93 93 O2 Delivery Room Air Room Air Room Air Intake and Output 12/02/18 12/02/18 12/03/18 15:00 23:00 07:00 Intake Total 500 ml 520 ml 340 ml Output Total 1300 ml 400 ml Balance -800 ml 120 ml 340 ml EMANUEL RAMOS MD December 03, 2018 08:38
[2018-12-03] MEDS: LACTOBACILLUS RHAMNOSUS GG 1 CAPSULE. PO SCH ×2 (08:53→20:56)
[2018-12-03] MEDS: TAMSULOSIN 0.4 MG CAP.ER.24H. PO SCH (08:54)
[2018-12-03 11:00] VITALS: BP 92/55
--- NOTE | 2018-12-03 12:26 | PDOC ---
Infectious Disease Note Subjective Subjective Feeling good today Hoping to go home soon Denies F/C/S/N/V/SOA ROS ROS per HPI Vital Sign Vital Signs Vital Signs Date Time Temp Pulse Resp B/P (MAP) Pulse Ox O2 Delivery O2 Flow Rate FiO2 12/03/18 11:00 99.1 75 18 92/55 (67) 95 Room Air 99.1 Physical Exam PHYSICAL EXAM GENERAL: Sitting in the chair, alert, eating HEENT: Oral cavity, pharynx was clear. NECK: Supple, no JVD. LUNGS: Clear to auscultation. HEART: S1, S2. ABDOMEN: Soft, nontender, nondistended, no guarding, no rebound. No CVA tenderness. EXTREMITIES: Without clubbing or cyanosis. No gross edema. SKIN: Warm to touch without signs of rash. NEUROLOGIC: Alert, responding appropriately PIV Labs Micro 11/28. URINE CULTURE RES 1 Final Escherichia coli 50,000-100,000 colony forming units per mL Susceptibility profile is consistent with a probable ESBL. Antibiotic RSLT#1 Amoxicillin/Clavulanic Acid I =16 Ampicillin R>=32 Cefazolin R>=64 Cefepime R =16 Ceftriaxone R>=64 Cefuroxime R>=64 Ciprofloxacin R>=4 Ertapenem S<=0.12 Gentamicin R>=16 Imipenem S<=0.25 Levofloxacin R>=8 Meropenem S<=0.25 Nitrofurantoin S<=16 Piperacillin/Tazobactam S<=4 Tetracycline S<=1 Tobramycin I =8 Trimethoprim/Sulfa S<=20 12/01. URINE CULTURE RES 1 Preliminary Escherichia coli 50,000-100,000 colony forming units per mL 11/28. BLD CULT RESULT 1 Final Escherichia coli Susceptibility profile is consistent with a probable ESBL. MICS are expressed in micrograms per mL Antibiotic RSLT#1 Amoxicillin/Clavulanic Acid I =16 Ampicillin R>=32 Cefazolin R>=64 Cefepime R =16 Ceftriaxone R>=64 Cefuroxime R>=64 Ciprofloxacin R>=4 Ertapenem S<=0.12 Gentamicin R>=16 Imipenem S<=0.25 Levofloxacin R>=8 Meropenem S<=0.25 Nitrofurantoin S<=16 Piperacillin/Tazobactam S =8 Tetracycline S<=1 Tobramycin R>=16 Trimethoprim/Sulfa S<=20 11/29. BLOOD CULTURE Final GRAM NEGATIVE RODS, IN 3 OF 4 BOTTLES, TWO SETS DRAWN ON 11/29/18 CALLED TO KAMI POE RN IN ICU AT 9:15 ON 11/30/18 DW MT SENT TO [facility] FOR FURTHER WORKUP. AMMENDED REPORT: GRAM NEGATIVE RODS SEEN IN 4 OF 4 BOTTLES; 12/01. BLOOD CULTURE Preliminary NO GROWTH AFTER 2 DAYS Objective Assessment GNR Sepsis - POA - 11/28 and 11/29; ESBL-producing E. coli. BC from 12/01 neg so far ESBL-producing E. coli UTI - POA 11/28. UC from 12/01 E. coli Renal stone on left. s/p Cystoscopy with left ureteral stent placement and left retrograde pyelogram 11/30 Bandemia Reported influenza - neg here Transaminitis - ? sec to hypotension TATIANA - better Plan Plan of Care Continue Meropenem, 12/01 Probiotics Previously on vanc and Rocephin F/u cultures Supportive care Contact isolation for ESBL D/w Dr. Patel RUN DATE: 12/02/18 PAGE 1 RUN TIME: 2010 [facility] [address] [place] [address] Chris Medina M.D., Top Cutter --- PATIENT: BHUPINDER EDWARD ACCT: [id number] LOC: [address] [place] [address] U: [id number] AGE/SX: 58/F ROOM: 418 RE11/28/[address]: JOSE JAY III DO : 1960 BED: 1 DIS: STATUS: ADM IN TLOC: SPEC #: [id number] ALISA: 11/28/18 STATUS: ELIAS FIELDS #: [id number] RECD: 11/28/[address] [facility] [address]: LINNETTE OTT APRN SOURCE: BLOOD ENTR: 11/29/[address]: SE[facility]AL DELEON [facility] ORDERED: BLD CULT - LC Procedure Result BLOOD CULTURE LC Final Final report BLD CULT RESULT 1 Final Escherichia coli Susceptibility profile is consistent with a probable ESBL. ANTIMICROBIAL SUSCEPTIBILITY Final Comment S = Susceptible; I = Intermediate; R = Resistant P = Positive; N = Negative MICS are expressed in micrograms per mL Antibiotic RSLT#1 RSLT#2 RSLT#3 RSLT#4 Amoxicillin/Clavulanic Acid I =16 Ampicillin R>=32 Cefazolin R>=64 Cefepime R =16 Ceftriaxone R>=64 Cefuroxime R>=64 Ciprofloxacin R>=4 Ertapenem S<=0.12 Gentamicin R>=16 Imipenem S<=0.25 Levofloxacin R>=8 Meropenem S<=0.25 Nitrofurantoin S<=16 Piperacillin/Tazobactam S =8 Tetracycline S<=1 Tobramycin R>=16 Trimethoprim/Sulfa S<=20 Performed at: DA - [facility] [address] [facility] [address], [place], [place] [id number] Poultry Veterinarian: VERONICA Montalvo MD, Phone: [phone] Pt seen and examined cont current tx agree with above a/p RJ CORREA APRN December 03, 2018 12:26 KEARA JAIMES MD December 03, 2018 15:17
[2018-12-03 15:00] VITALS: BP 89/54
[2018-12-03 19:00] VITALS: BP 105/65
[2018-12-03 23:00] VITALS: BP 96/56
[2018-12-04 03:00] VITALS: BP 109/60
[2018-12-04] MEDS: MEROPENEM 500 MG in IV NORMAL SALINE 50ML 50 ML IV SCH ×2 (05:21→12:16)
[2018-12-04 07:00] VITALS: BP 106/71
--- NOTE | 2018-12-04 08:39 | NUR ---
IP: Influenza isolation has been discontinued. Contact will be maintained due to ESBL in urine.
[2018-12-04] MEDS: TAMSULOSIN 0.4 MG CAP.ER.24H. PO SCH (08:53)
[2018-12-04] MEDS: LACTOBACILLUS RHAMNOSUS GG 1 CAPSULE. PO SCH (08:53)
--- NOTE | 2018-12-04 09:38 | PDOC ---
RUBI HANSON MANAGER CONTACT 12/04/18 0938: SUBJECTIVE Subjective Pt doing well today, no pain, nausea or vomiting. Would like to go home. OBJECTIVE Objective Physical Exam: General appearance: Alert and Oriented Head: Normocephalic, without obvious abnormality Eyes: conjunctivae/corneas clear. PERRL, EOM's intact. Fundi benign Back: no CVA pain bilaterally Lungs: Regular respirations, non labored breathing Abdomen: soft, non-tender. . No masses, no organomegaly Pelvic: deferred Vital Signs Vital Signs Date Time Temp Pulse Resp B/P (MAP) Pulse Ox O2 Delivery O2 Flow Rate FiO2 12/04/18 07:25 Room Air 12/04/18 07:00 97.9 72 18 106/71 (83) 92 Room Air 97.9 12/04/18 03:00 98.0 78 18 109/60 (76) 93 Room Air 98.0 12/03/18 23:00 98.4 74 18 96/56 (69) 90 Room Air 98.4 12/03/18 20:00 Room Air 12/03/18 19:00 98.4 89 18 105/65 (78) 95 Room Air 98.4 12/03/18 15:00 99.0 70 18 89/54 (66) 93 Room Air 99.0 12/03/18 11:00 99.1 75 18 92/55 (67) 95 Room Air 99.1 I & O Intake and Output 12/04/18 07:00 Output Total 450 ml Balance -450 ml Output Urine Total 450 ml # Voids 4 PHYSICAL EXAM Physical Exam Physical Exam: General appearance: Alert and Oriented Head: Normocephalic, without obvious abnormality Eyes: conjunctivae/corneas clear. PERRL, EOM's intact. Fundi benign Back: no CVA pain bilaterally Lungs: Regular respirations, non labored breathing Abdomen: soft, non-tender. . No masses, no organomegaly Pelvic: deferred ASSESSMENT/PLAN Assessment/Plan Plan is for URS in two weeks. Explained to patient that [facility] will be calling her to schedule an appointment for this. Please call [facility] if you do not receive a phone call by Tue next week. Continue ABX, pain control as needed. Explained to patient that with stent in place, urine will look bloody on and off/this is normal. Please call for large 1/2 dollar sized clots, or urine that is very dark like red wine and not transparent. Will follow while in house. Discharge home whenever appropriate per ID. CATHY DOTSON MD 12/08/18 1236: ASSESSMENT/PLAN Assessment/Plan Agree with assessment and plan. RUBI HANSON APRN December 04, 2018 09:38 CATHY DOTSON MD December 08, 2018 12:36
[2018-12-04 11:00] VITALS: BP 114/73
--- NOTE | 2018-12-04 11:25 | PDOC ---
Infectious Disease Note Subjective Subjective Feeling good today Hoping to go home soon Denies F/C/S/N/V/SOA Vital Sign Vital Signs Vital Signs Date Time Temp Pulse Resp B/P (MAP) Pulse Ox O2 Delivery O2 Flow Rate FiO2 12/04/18 07:25 Room Air 12/04/18 07:00 97.9 72 18 106/71 (83) 92 97.9 12/03/18 07:50 10.0 Physical Exam PHYSICAL EXAM GENERAL: Sitting in the chair, alert, eating HEENT: Oral cavity, pharynx was clear. NECK: Supple, no JVD. LUNGS: Clear to auscultation. HEART: S1, S2. ABDOMEN: Soft, nontender, nondistended, no guarding, no rebound. No CVA tenderness. EXTREMITIES: Without clubbing or cyanosis. No gross edema. SKIN: Warm to touch without signs of rash. NEUROLOGIC: Alert, responding appropriately PIV Labs Micro Microbiology 12/01/18 Blood Culture - Preliminary, Resulted NO GROWTH AFTER 3 DAYS 12/01/18 Urine Culture - Preliminary, Resulted 12/01/18 Urine Culture Result 1 (MARGARITA) - Preliminary, Resulted Objective Assessment GNR Sepsis - POA - 11/28 and 11/29; ESBL-producing E. coli. BC from 12/01 neg so far ESBL-producing E. coli UTI - POA 11/28. UC from 12/01 E. coli Renal stone on left. s/p Cystoscopy with left ureteral stent placement and left retrograde pyelogram 11/30 Bandemia Reported influenza - neg here Transaminitis - ? sec to hypotension TATIANA - better Plan Plan of Care Continue Meropenem, 12/01 Probiotics Previously on vanc and Rocephin F/u cultures Supportive care Contact isolation for ESBL d/c ok on iv invanz 10 days midline f/u with us in 10-12 days CHANG JAIMES MD December 04, 2018 11:25
--- NOTE | 2018-12-04 12:15 | PDOC ---
PROGRESS NOTES Chief Complaint Chief Complaint UTI with sepsis Gram negative bacteremia CKD stage 2-3 6 mm left UPJ calculus is seen which is causing mild to moderate obstruction of the left collecting system - s/p Cystoscopy with left ureteral stent placement and left retrograde pyelogram.11/30 Transaminitis, shock liver Moderate to possibly moderately severe mitral regurgitation. mild tricuspid regurgitation. The PA pressure was estimated at 40 mmHg. Elevated troponin i Plan laser/stone extraction. IV antibiotics IV fluids DVT prophylaxis full code home meds frequent labs ID consult - [facility] urology consult History of Present Illness History of Present Illness Patient is a pleasant middle-aged female who presented with flank pain, fever and chills and apparently was being treated for influenza prior to admission. Found with e. coli UTI and GNR bacteremia. Admitted to ICU for severe sepsis, she has associated nausea occurring for several days describes as agonizing Feeling better today. GNR in blood e. coli, ESBL, continue merram, abx can be changed to invanz for 10 days. needs midline and follow up with ID in 10-12 days Vitals Vitals Vital Signs Date Time Temp Pulse Resp B/P (MAP) Pulse Ox O2 Delivery O2 Flow Rate FiO2 12/04/18 11:00 98.0 66 18 114/73 (87) 96 Room Air 98.0 12/03/18 07:50 10.0 Physical Exam Physical Exam GENERAL: Sitting in the chair, alert, eating HEENT: Oral cavity, pharynx was clear. NECK: Supple, no JVD. LUNGS: Clear to auscultation. HEART: S1, S2. ABDOMEN: Soft, nontender, nondistended, no guarding, no rebound. No CVA tenderness. EXTREMITIES: Without clubbing or cyanosis. No gross edema. SKIN: Warm to touch without signs of rash. NEUROLOGIC: Alert, responding appropriately PIV General: Alert, Oriented X3, Cooperative, No acute distress Heart: Regular rate, Normal S1, Normal S2 Lungs: Clear Abdomen: Normal bowel sounds, Soft, No tenderness, No hepatosplenomegaly Extremities: No edema, Normal pulses Skin: No breakdown, No significant lesion Assessment and Plan Assessmemt and Plan Problems Medical Problems: (1) Acute renal failure Status: Acute (2) Hypoglycemia Status: Acute (3) Hypotension Status: Acute (4) Septic shock Status: Acute (5) UTI (urinary tract infection) Status: Acute Comment Review of Relevant I have reviewed the following items chavez (where applicable) has been applied. Labs Microbiology 12/01/18 Blood Culture - Preliminary, Resulted NO GROWTH AFTER 3 DAYS 12/01/18 Urine Culture - Preliminary, Resulted 12/01/18 Urine Culture Result 1 (MARGARITA) - Preliminary, Resulted Medications Current Medications Sodium Chloride 1,000 ml @ 1,440 mls/hr Q42M IV Last administered on 11/28/18at 10:40; Start 11/28/18 at 10:45; Stop 11/28/18 at 11:45; Status DC Ketorolac Tromethamine (Toradol 30mg Vial) 30 mg 1X ONCE IV Last administered on 11/28/18at 10:41; Start 11/28/18 at 10:45; Stop 11/28/18 at 10:46; Status DC Ondansetron HCl (Zofran) 4 mg 1X ONCE IV Last administered on 11/28/18at 10:41; Start 11/28/18 at 10:45; Stop 11/28/18 at 10:46; Status DC Ondansetron HCl (Zofran) 4 mg STK-MED ONCE .ROUTE ; Start 11/28/18 at 10:36; Stop 11/28/18 at 10:37; Status DC Ketorolac Tromethamine (Toradol 30mg Vial) 30 mg STK-MED ONCE .ROUTE ; Start 11/28/18 at 10:36; Stop 11/28/18 at 10:37; Status DC Vancomycin HCl (Vanco Per Pharmacy) 1 each PRN DAILY PRN MC SEE COMMENTS Last administered on 11/29/18at 09:52; Start 11/28/18 at 11:00; Stop 11/30/18 at 07:25; Status DC Cefepime HCl (Maxipime) 1 gm 1X ONCE IVP Last administered on 11/28/18at 11:26; Start 11/28/18 at 11:15; Stop 11/28/18 at 11:16; Status DC Sodium Chloride 1,000 ml @ 1,000 mls/hr 1X ONCE IV Last administered on 11/28/18at 11:04; Start 11/28/18 at 11:00; Stop 11/28/18 at 11:59; Status DC Vancomycin HCl 1.5 gm/Sodium Chloride 500 ml @ 250 mls/hr 1X ONCE IV Last administered on 11/28/18at 11:31; Start 11/28/18 at 11:15; Stop 11/28/18 at 13:14; Status DC Sodium Chloride 1,000 ml @ 125 mls/hr 1X ONCE IV Last administered on 11/28/18at 12:28; Start 11/28/18 at 12:15; Stop 11/28/18 at 20:14; Status DC Ondansetron HCl (Zofran) 4 mg PRN Q8HRS PRN IV NAUSEA/VOMITING; Start 11/28/18 at 12:30; Stop 11/29/18 at 12:29; Status DC Morphine Sulfate (Morphine Sulfate) 2 mg PRN Q2HR PRN IV PAIN; Start 11/28/18 at 12:30; Stop 11/29/18 at 12:29; Status DC Sodium Chloride 1,000 ml @ 0 mls/hr Q0M IV ; Start 11/28/18 at 12:29; Stop 11/29/18 at 12:28; Status DC Acetaminophen (Tylenol) 650 mg PRN Q4HRS PRN PO FEVER Last administered on 11/15 12/03at 01:07; Start 11/28/18 at 12:30; Stop 11/29/18 at 12:29; Status DC Sodium Chloride 1,000 ml @ 125 mls/hr 1X ONCE IV Last administered on 11/28/18at 12:30; Start 11/28/18 at 12:30; Stop 11/28/18 at 20:29; Status DC Vancomycin HCl 1 gm/Sodium Chloride 250 ml @ 250 mls/hr Q24H IV Last administered on 11/29/18at 11:58; Start 11/29/18 at 11:30; Stop 11/30/18 at 07:25; Status DC Vancomycin HCl (Vancomycin Trough Level) 1 each 1X ONCE MC ; Start 11/30/18 at 11:00; Stop 11/30/18 at 11:00; Status DC Ceftriaxone Sodium (Rocephin) 2 gm Q24H IVP Last administered on 12/01/18at 06:31; Start 11/29/18 at 07:00; Stop 12/01/18 at 19:57; Status DC Sodium Chloride 500 ml @ 500 mls/hr 1X ONCE IV Last administered on 11/29/18at 07:29; Start 11/29/18 at 07:30; Stop 11/29/18 at 08:29; Status DC Lactobacillus Rhamnosus (Culturelle) 1 cap BID PO Last administered on 12/04/18at 08:53; Start 11/29/18 at 21:00 Hydrocortisone Sodium Succinate (Solu-CORTEF) 100 mg 1X ONCE IV Last administered on 11/29/18at 11:59; Start 11/29/18 at 11:45; Stop 11/29/18 at 11:46; Status DC Sodium Chloride (Normal Saline Flush) 10 ml QSHIFT PRN IV AFTER MEDS AND BLOOD DRAWS; Start 11/29/18 at 11:15 Norepinephrine Bitartrate 250 ml @ 0 mls/hr CONT PRN IV PER PROTOCOL Last administered on 11/29/18at 14:05; Start 11/29/18 at 11:15; Stop 12/01/18 at 15:50; Status DC Sodium Chloride 1,000 ml @ 125 mls/hr Q8H IV Last administered on 12/01/18at 01:11; Start 11/29/18 at 19:00; Stop 12/01/18 at 15:26; Status DC Tamsulosin HCl (Flomax) 0.4 mg 1X ONCE PO Last administered on 11/29/18at 20:07; Start 11/29/18 at 19:45; Stop 11/29/18 at 19:54; Status DC Tamsulosin HCl (Flomax) 0.4 mg DAILY PO Last administered on 12/04/18at 08:53; Start 11/30/18 at 09:00 Ondansetron HCl (Zofran) 4 mg PRN Q6HRS PRN IV NAUSEA/VOMITING; Start 11/30/18 at 13:15; Stop 12/01/18 at 13:14; Status DC Fentanyl Citrate (Fentanyl 2ml Vial) 25 mcg PRN Q5MIN PRN IV MILD PAIN 1-3; Start 11/30/18 at 13:15; Stop 12/01/18 at 13:14; Status DC Fentanyl Citrate (Fentanyl 2ml Vial) 50 mcg PRN Q5MIN PRN IV MODERATE TO SEVERE PAIN; Start 11/30/18 at 13:15; Stop 12/01/18 at 13:14; Status DC Morphine Sulfate (Morphine Sulfate) 1 mg PRN Q10MIN PRN IV SEVERE PAIN 7-10; Start 11/30/18 at 13:15; Stop 12/01/18 at 13:14; Status DC Ringer's Solution 1,000 ml @ 30 mls/hr Q24H IV Last administered on 11/30/18at 15:45; Start 11/30/18 at 13:09; Stop 12/01/18 at 01:08; Status DC Hydromorphone HCl (Dilaudid) 0.5 mg PRN Q10MIN PRN IV SEV PAIN, Second choice; Start 11/30/18 at 13:15; Stop 12/01/18 at 13:14; Status DC Prochlorperazine Edisylate (Compazine) 5 mg PACU PRN PRN IV NAUSEA, MRX1; Start 11/30/18 at 13:15; Stop 12/01/18 at 13:14; Status DC Propofol 20 ml @ As Directed STK-MED ONCE IV ; Start 11/30/18 at 18:40; Stop 11/30/18 at 18:41; Status DC Lidocaine HCl (Lidocaine Pf 2% Vial) 5 ml STK-MED ONCE .ROUTE ; Start 11/30/18 at 18:40; Stop 11/30/18 at 18:41; Status DC Ondansetron HCl (Zofran) 4 mg STK-MED ONCE .ROUTE ; Start 11/30/18 at 18:40; Stop 11/30/18 at 18:41; Status DC Dexamethasone Sodium Phosphate (Decadron) 4 mg STK-MED ONCE .ROUTE ; Start 11/30/18 at 18:40; Stop 11/30/18 at 18:41; Status DC Fentanyl Citrate (Fentanyl 2ml Vial) 100 mcg STK-MED ONCE .ROUTE ; Start 11/30/18 at 18:40; Stop 11/30/18 at 18:41; Status DC Sevoflurane (Ultane) 30 ml STK-MED ONCE IH ; Start 11/30/18 at 18:40; Stop 11/30/18 at 18:41; Status DC Iohexol (Omnipaque 300 Mg/ml) 50 ml STK-MED ONCE IV Last administered on 11/30/18at 18:35; Start 11/30/18 at 18:35; Stop 11/30/18 at 19:23; Status DC Iohexol (Omnipaque 300 Mg/ml) 50 ml STK-MED ONCE .ROUTE ; Start 11/30/18 at 18:33; Stop 11/30/18 at 19:33; Status DC Meropenem 500 mg/ Sodium Chloride 50 ml @ 100 mls/hr Q6HRS IV Last administered on 12/04/18at 05:21; Start 12/02/18 at 00:00 Meropenem 500 mg/ Sodium Chloride 50 ml @ 100 mls/hr 1X ONCE IV Last administered on 12/01/18at 20:45; Start 12/01/18 at 20:45; Stop 12/01/18 at 21:14; Status DC Magnesium Sulfate/ Dextrose 100 ml @ 25 mls/hr 1X ONCE IV Last administered on 12/02/18at 10:23; Start 12/02/18 at 08:15; Stop 12/02/18 at 12:14; Status DC Potassium Chloride/Dextrose/ Sod Cl 1,000 ml @ 80 mls/hr 1X ONCE IV Last administered on 12/02/18at 10:22; Start 12/02/18 at 08:15; Stop 12/02/18 at 20:44; Status DC Oxybutynin Chloride (Ditropan) 5 mg PRN TID PRN PO frequent urination Last administered on 12/03/18at 08:54; Start 12/02/18 at 12:30 Active Scripts Active Reported Tamiflu (Oseltamivir Phosphate) 30 Mg Capsule 30 Mg PO DAILY Vitals/I & O Vital Sign - Last 24 Hours 12/03/18 12/03/18 12/03/18 12/03/18 15:00 19:00 20:00 23:00 Temp 99.0 98.4 98.4 99.0 98.4 98.4 Pulse 70 89 74 Resp 18 18 18 B/P (MAP) 89/54 (66) 105/65 (78) 96/56 (69) Pulse Ox 93 95 90 O2 Delivery Room Air Room Air Room Air Room Air 12/04/18 12/04/18 12/04/18 12/04/18 03:00 07:00 07:25 11:00 Temp 98.0 97.9 98.0 98.0 97.9 98.0 Pulse 78 72 66 Resp 18 18 18 B/P (MAP) 109/60 (76) 106/71 (83) 114/73 (87) Pulse Ox 93 92 96 O2 Delivery Room Air Room Air Room Air Room Air Intake and Output 12/03/18 12/03/18 12/04/18 15:00 23:00 07:00 Output Total 450 ml Balance -450 ml SAUL HAYNES MD December 04, 2018 12:15
--- NOTE | 2018-12-04 13:05 | NUR ---
MIDLINE PRE-INSERTION NOTE: Allergies and reactions NONE INR 1.2 BUN 12 Cr 0.7 Platelets 156 Blood culture done YES blood culture results NEG Order Verified YES Consent signed YES Previous MIDLINE placement NO Past Medical/Surgical history and current diagnosis reviewed YES Patient Medical /Surgical History Related to MIDLINE placement None Special considerations for MIDLINE placement None MIDLINE placement indication manager terminal antibiotic usage name of PICC Nurse RAHUL LOYA RN
[2018-12-04] MEDS ORDERED: TAMS0.4C97 PO (13:35)
--- NOTE | 2018-12-04 13:35 | NUR ---
MIDLINE PLACEMENT: Procedure: Following complete explanation of the MIDLINE procedure including the indications, risks, and potential complications, informed consent was obtained. The possibility for infection was discussed along with signs, symptoms, and prevention. All the questions were answered. Written and verbal patient education was provided. Hand hygiene performed. Standardized central line checklist was utilized. The patient was placed in the supine position, the arm was prepped with chlorhexidine and patient draped with maximum sterile barrier. 3 mL 1% lidocaine was infiltrated into the skin to provide local anesthesia. A thorough assessment of LEFT upper extremity completed. Using real-time ultrasound guidance and standardized micro puncture set, the BRACHIAL vein was punctured and a peel away sheath was placed using the modified Seldinger technique. A tip location device was used to ensure adequate catheter placement. The catheter was secured using a securement device and an antimicrobial patch was applied directly on the insertion site followed by a transparent dressing. All ports withdraw blood and flush without resistance. Patient tolerated the procedure without apparent complication(s). SINGLE L[employer] MIDLINE placement successful and uncomplicated. Tip located in the AXILLA. Complications: NONE CATHETER TRIMED AT 13 CM WITH 0CM VISABLE.
--- NOTE | 2018-12-04 13:42 | NUR ---
Dr. Bautista paged re: Rx for INvanz.
--- NOTE | 2018-12-04 13:43 | PDOC3 ---
Discharge Summary Visit Information Date of Admission: November 28, 2018 Date of Discharge: December 04, 2018 Admitting Diagnosis Comment: sepsis Final Diagnosis Problems Medical Problems: (1) Acute renal failure Status: Acute (2) Hypoglycemia Status: Acute (3) Hypotension Status: Acute (4) Septic shock Status: Acute (5) UTI (urinary tract infection) Status: Acute Brief Hospital Course Allergies Allergies Coded Allergies Type Severity Reaction Last Updated Verified I S O L A T I O N *CONTACT* Allergy Unknown 12/04/18 Yes No Known Medication Allergies Allergy Unknown 12/04/18 Yes Vital Signs Vital Signs Date Time Temp Pulse Resp B/P (MAP) Pulse Ox O2 Delivery O2 Flow Rate FiO2 12/04/18 11:00 98.0 66 18 114/73 (87) 96 Room Air 98.0 12/03/18 07:50 10.0 Brief Hospital Course 58 year old middle-aged female who presented with flank pain, fever and chills and apparently was being treated for influenza prior to admission. Found with e. coli UTI and GNR bacteremia. Admitted to ICU for severe sepsis, she has associated nausea occurring for several days describes as agonizing. She did have ESBL-producing E. coli. 11/28. BC from 12/01 neg so far She was treated with IV Vanc and and Rocephin then changed to Merropenam. ID was consulted, Urology was consulted. She had a 6 mm left UPJ calculus is seen which is causing mild to moderate obstruction of the left collecting system - s/p Cystoscopy with left ureteral stent placement and left retrograde pyelogram.11/30. She did have Transaminitis, shock liver bc of sepsis. Patient will be discharged on Invanz for 10 days and follow up with ID in 10 days post discharge Discharge Information Condition at Discharge: Stable Follow Up: Weeks Disposition/Orders: D/C to Home Scheduled Tamsulosin Hcl (Flomax) 0.4 Mg Cap.er.24h, 0.4 MG PO DAILY for UTI, stone for 14 Days, #14 Prescribed by: SAUL HAYNES MD on 12/04/18 0115 Discontinued Medications Oseltamivir Phosphate (Tamiflu) 30 Mg Capsule, 30 MG PO DAILY for FLU, Ref 0 (R eported) Entered as Reported by: GRETCHEN ROBERSON on 11/28/18 1610 Last Taken: Unknown Dose on 11/27/18 Last Action: New Order on 11/28/18 1610 by SAUL BARRIENTOS MD December 04, 2018 13:43
[2018-12-04 15:00] VITALS: BP 112/70
[2018-12-04] MEDS ORDERED: ERTAPENEM 1 GM in IV NORMAL SALINE 50ML 50 ML IV SCH (15:00)
--- NOTE | 2018-12-04 15:15 | NUR ---
SW following for discharge planning. Discussed with RN, pt from home, indp. Pt having picc line placed today and will need IV Invanz. Per RN, pt wanting to do it outpt, here at [facility], SW awaiting script from Dr. Bautista. SW will continue to follow.
--- NOTE | 2018-12-04 15:19 | NUR ---
Dr. Bautista paged re: Rx for Invanz.
--- NOTE | 2018-12-04 16:24 | NUR ---
SW following. ANEL faxed script and face sheet to outpt for Invanz IV daily. RNCameron arranging the the appointment time. Pt discharging home today.
--- NOTE | 2018-12-04 16:31 | NUR ---
OP dept called re: order sent this evening for IV abx infusion to begin tomorrow.
== END 2018-12-04 17:35 | disposition home or self-care (01) | DRG 853 ==
LOC: ER 09:46 → 1 WEST ICU 12:19 → 4 NORTH 12-01 15:43
PROVIDERS: ADMIT Internal Medicine; ATTEND Internal Medicine
PROC: BT1F1ZZ Fluoroscopy of Left Kidney, Ureter and Bladder using Low Osmolar Contrast (ICD-10-PCS; 2018-11-30)
PROC: 0T778DZ Dilation of Left Ureter with Intraluminal Device, Via Natural or Artificial Opening Endoscopic (ICD-10-PCS; principal; 2018-11-30 18:00)
PROC: 05H833Z Insertion of Infusion Device into Left Axillary Vein, Percutaneous Approach (ICD-10-PCS; 2018-12-04)
PROC: B54NZZA Ultrasonography of Left Upper Extremity Veins, Guidance (ICD-10-PCS; 2018-12-04)
DX: A41.50 Gram-negative sepsis, unspecified (principal); K72.00 Acute and subacute hepatic failure without coma; R65.21 Severe sepsis with septic shock; N17.9 Acute kidney failure, unspecified; N13.6 Pyonephrosis; B96.20 Unspecified Escherichia coli [E. coli] as the cause of diseases classified elsewhere; E16.2 Hypoglycemia, unspecified; E78.5 Hyperlipidemia, unspecified; E87.6 Hypokalemia; K44.9 Diaphragmatic hernia without obstruction or gangrene; K21.9 Gastro-esophageal reflux disease without esophagitis; N18.3 Chronic kidney disease, stage 3 (moderate); R74.8 Abnormal levels of other serum enzymes; I08.1 Rheumatic disorders of both mitral and tricuspid valves; Z82.3 Family history of stroke; Z82.49 Family history of ischemic heart disease and other diseases of the circulatory system; Z87.891 Personal history of nicotine dependence; Z90.711 Acquired absence of uterus with remaining cervical stump; Z85.41 Personal history of malignant neoplasm of cervix uteri; Q63.2 Ectopic kidney; Z79.899 Other long term (current) drug therapy
CPT/HCPCS: 36415; 36569; 71046; 74018; 74176; 76000; 76770; 80053; 80061; 81001; 82248; 83605; 83690; 83735; 84145; 84484; 85007; 85025; 85379; 85384; 85610; 85730; 87040; 87077; 87086; 87186; 87205; 87641; 87804; 93005; 93306; 96365; A7015; C1769; C2617; J0692; J0696; J1100; J1335; J1720; J1885; J2001; J2185; J2405; J2704; J3010; J3370; J3475; J7030; J7040; J7042; J7050; J7120; Q9967; 99285-25

== ENCOUNTER → 2018-12-14 | Day surgery (SDC) | payer OTHER ==
[~2018-12-14] MED LIST: 0.9 % SODIUM CHLORIDE 20 ML VIAL. IJ ONE; DEXAMETHASONE SOD PHOS 4 MG/ML VIAL ONE; ERTAPENEM 1 GM IV ONE; ERTAPENEM 1 GM in IV NORMAL SALINE 50ML 50 ML IV ONE; FAMOTIDINE 20 MG/2 ML VIAL ONE; HYDROmorphone 2 MG/ML VIAL IV PRN; IOHEXOL 300 MG/ML 50 ML VIAL. ONE; IV RINGERS,LACTATED 1000ML 1,000 ML IV SCH; KETOROLAC 30 MG/ML INJ FOR OR. INJ ONE; LIDOCAINE 2% JELLY 6ML IN APPLICATOR. ONE; LIDOCAINE 2% PF 5 ML VIAL. ONE; MIDAZOLAM HCL/PF 2 MG/2 ML VIAL. ONE; MORPHINE SULFATE 2 MG/ML VIAL. IV PRN; ONDANSETRON PF 4 MG/2 ML VIAL. IV PRN; ONDANSETRON PF 4 MG/2 ML VIAL. ONE; OSEL30CA PO; PROCHLORPERAZINE 10 MG/2 ML VIAL. IV PRN; PROPOFOL 20 ML IV ONE; SEVOFLURANE 31 TO 60 MINUTES. IH ONE; TAMS0.4C97 PO; fentaNYL PF VIAL 100 MCG/2 ML VIAL IV PRN; fentaNYL PF VIAL 100 MCG/2 ML VIAL ONE
--- NOTE | 2018-12-14 14:21 | PDOC4 ---
OPERATIVE NOTE Date: Date: December 14, 2018 Pre-Op Diagnosis: left ureter stone Post-Op Diagnosis: same Procedure Performed: left ureteroscopy, laser of stone, stent placement Surgeon: Cathy Dotson MD Anesthesia Type: general Blood Loss: 0 Specimans Obtained: left ureter stone Findings: left mid ureter stone no kidney stones Complications: none Operative Note: see dictation CATHY DOTSON MD December 14, 2018 14:21
--- NOTE | 2018-12-14 14:27 | DISCH ---
DISCHARGE INSTRUCTIONS Condition on Discharge Condition on Discharge: Stable Activity After Discharge Activity Instructions for Disc: Activity as tolerated Driving Instructions after Dis: Do not drive today Diet after Discharge Diet after Discharge: Regular Follow-Up Follow up with: Dr. Dotson in 1 week for stent removal. [phone] Treatment/Equipment after DC Adaptive Equipment Issued: None CATHY DOTSON MD December 14, 2018 14:27
[2018-12-14 15:05] VITALS: BP 121/72
--- NOTE | 2018-12-14 18:55 | OP ---
DATE OF SURGERY: 12/14/2018 SURGEON: Alexander Dotson MD HOTEL RO[facility] ATTENDANT: None. PREOPERATIVE DIAGNOSIS: Left ureter stone. POSTOPERATIVE DIAGNOSIS: Left ureter stone. PROCEDURE PERFORMED: Left ureteroscopy with laser of stone and left retrograde pyelogram. ANESTHESIA TYPE: General. DESCRIPTION OF PROCEDURE: This is a 58-year-old female who recently had a stent placed for a left ureter stone and sepsis. Her infection has been treated and she now returns for stone treatment. Informed consent was obtained. The patient was taken to the operating room and general anesthesia was induced. She was placed in the dorsal lithotomy position and sterilely prepped and draped. A timeout was performed. A rigid cystoscope was advanced through the urethra and into the bladder. The ureteral stent was grasped and pulled out through the urethral meatus. A guidewire was placed through the stent and advanced up into the left kidney under fluoroscopic guidance. The stent was removed. A second wire was placed. A stone was visible on fluoroscopy in the mid left ureter. A flexible ureteroscope was advanced over one of the wires and up to the stone in the mid ureter. The stone was fragmented with the holmium laser into multiple small fragments. The scope was then further advanced up into the renal pelvis where each ritika was then inspected and appeared free of any additional stones. The scope was then slowly withdrawn. The ureter appeared free of injury or additional stones. One remaining stone fragment was identified in the ureter and this was grasped with a basket and removed intact and sent as a specimen. A 6 x 24 cm stent was then placed under fluoroscopic guidance into appropriate position over the safety wire. The cystoscope was reintroduced and appropriate curl of the stent was noted in the bladder. The bladder contents were emptied. The patient was awakened and taken to the recovery room in stable condition. BLOOD LOSS: None. COMPLICATIONS: None. SPECIMEN: Left ureter stone fragments. ALEXANDER DOTSON MD DR: ALTHEA/kennedy JOB#: [id number] / [id number]
--- NOTE | 2018-12-15 09:09 | PATHOLOGY ---
[facility] Accession Number: [id number] . 01 Material submitted: . ureter - LEFT URETERAL STONE. Modifiers: left . 01 Clinical history: . Ureteral stone. . 02 Diagnosis: Left ureteral stone: - Consistent with calculus. - The specimen is forwarded to an outside laboratory, with results to follow in an addendum. [facility]/12/15/2018 . 02 Electronically signed: . Chris Medina MD, Pathologist NPI- [id number] . 01 Gross description: . Received fresh labeled "Amna Wright left ureteral stone" is a 0.1 x 0.1 x 0.1 cm prather-brown calculus. The specimen is forwarded to an outside laboratory for further processing. ([facility] [place]; 12/14/2018) SYC/SYC . 02 Pathologist provided ICD-10: N20.1 . 02 CPT . 791798 Specimen Comment: A courtesy copy of this report has been sent to Specimen Comment: [phone], . Specimen Comment: Report sent to / DR DELEON Specimen Comment: A duplicate report has been generated due to demographic updates. Performed at: 01 [facility] [address] [facility] [address], [place] [id number] MD Negrito Simental MD Phone: [phone] Performed at: 02 [facility] [address] [place], [place] [id number] MD Chris Medina MD Phone: [phone]
== END ==
LOC: SURG 10:46
PROVIDERS: ATTEND Urology
DX: N20.1 Calculus of ureter (principal)
CPT/HCPCS: 52356; 76000; 82365; A7015; C1769; C2617; J1100; J1335; J1885; J2001; J2250; J2405; J2704; J3010; J3490; J7120; Q9967; 88300

== ENCOUNTER 2020-07-08 11:43 | Emergency (ER) | payer BC, OTHER ==
[~2020-07-08] VITALS: Ht 154.9 cm; Wt 65.0 kg
[~2020-07-08 11:43] MED LIST changes: -0.9 % SODIUM CHLORIDE 20 ML VIAL. IJ ONE; -DEXAMETHASONE SOD PHOS 4 MG/ML VIAL ONE; -ERTAPENEM 1 GM IV ONE; -ERTAPENEM 1 GM in IV NORMAL SALINE 50ML 50 ML IV ONE; -FAMOTIDINE 20 MG/2 ML VIAL ONE; -HYDROmorphone 2 MG/ML VIAL IV PRN; -IOHEXOL 300 MG/ML 50 ML VIAL. ONE; -IV RINGERS,LACTATED 1000ML 1,000 ML IV SCH; -KETOROLAC 30 MG/ML INJ FOR OR. INJ ONE; -LIDOCAINE 2% JELLY 6ML IN APPLICATOR. ONE; -LIDOCAINE 2% PF 5 ML VIAL. ONE; -MIDAZOLAM HCL/PF 2 MG/2 ML VIAL. ONE; -MORPHINE SULFATE 2 MG/ML VIAL. IV PRN; -ONDANSETRON PF 4 MG/2 ML VIAL. IV PRN; -ONDANSETRON PF 4 MG/2 ML VIAL. ONE; -PROCHLORPERAZINE 10 MG/2 ML VIAL. IV PRN; -PROPOFOL 20 ML IV ONE; -SEVOFLURANE 31 TO 60 MINUTES. IH ONE; -fentaNYL PF VIAL 100 MCG/2 ML VIAL IV PRN; -fentaNYL PF VIAL 100 MCG/2 ML VIAL ONE
--- NOTE | 2020-07-08 12:10 | PHYS DOC ---
Past Medical History Past Medical History: Kidney Stone, UTI, Other Additional Past Medical Histor: KIDNEY STONES Past Surgical History: Hysterectomy Additional Past Surgical Histo: Smoking Status: Never Smoker Alcohol Use: None Drug Use: None Adult General Chief Complaint Chief Complaint: FLANK PAIN HPI HPI Patient is a 60 year old with a past history of renal stones presenting emergency department right-sided flank pain. Patient is a 2 days ago she started having pain in the right lateral flank which is an started increasing in severity. Patient states that this is an aching sensation. Has been associated mild nausea but denies any fever, chills, chest pain or shortness of breath. Patient notes that approximately a month ago she had a similar episode where she was ultimately hospitalized for urosepsis secondary to an infected stone and required 7 days in the hospital. Patient denying any fevers no. Review of Systems Review of Systems Constitutional: Denies fever or chills [] Eyes: Denies change in visual acuity, redness, or eye pain [] HENT: Denies nasal congestion or sore throat [] Respiratory: Denies cough or shortness of breath [] Cardiovascular: No additional information not addressed in HPI [] GI: Denies abdominal pain, nausea, vomiting, bloody stools or diarrhea [] : Denies dysuria or hematuria [] Musculoskeletal: Denies back pain or joint pain [] Integument: Denies rash or skin lesions [] Neurologic: Denies headache, focal weakness or sensory changes [] Endocrine: Denies polyuria or polydipsia [] All other systems were reviewed and found to be within normal limits, except as documented in this note. Current Medications Current Medications Current Medications Medications (Trade) Dose Ordered Sig/Ella Start Time Stop Time Status Last Admin Dose Admin Info (CONTRAST GIVEN -- Rx MONITORING) 1 each PRN DAILY PRN 07/08/20 13:00 07/10/20 12:59 Iohexol (Omnipaque 300 Mg/ml) 75 ml 1X ONCE 07/08/20 13:00 07/08/20 13:01 DC 07/08/20 12:58 75 ML Ketorolac Tromethamine (Toradol 30mg Vial) 30 mg 1X ONCE 07/08/20 12:15 07/08/20 12:16 DC 07/08/20 12:28 30 MG Morphine Sulfate (Morphine Sulfate) 4 mg 1X ONCE 07/08/20 12:30 07/08/20 12:31 DC 07/08/20 12:29 4 MG Sodium Chloride (Normal Saline Flush) 10 ml QSHIFT PRN 07/08/20 12:15 Allergies Allergies Allergies Coded Allergies Type Severity Reaction Last Updated Verified I S O L A T I O N *CONTACT* Allergy Unknown 12/18/18 Yes No Known Medication Allergies Allergy Unknown 12/18/18 Yes Physical Exam Physical Exam Constitutional: Well developed, well nourished, no acute distress, non-toxic appearance. [] HENT: Normocephalic, atraumatic, bilateral external ears normal, oropharynx moist, no oral exudates, nose normal. [] Eyes: PERRLA, EOMI, conjunctiva normal, no discharge. [] Neck: Normal range of motion, no tenderness, supple, no stridor. [] Cardiovascular:Heart rate regular rhythm, no murmur [] Lungs & Thorax: Bilateral breath sounds clear to auscultation [] Abdomen: Bowel sounds normal, soft, no tenderness, no masses, no pulsatile masses. [] Skin: Warm, dry, no erythema, no rash. [] Back: No tenderness, no CVA tenderness. [] Extremities: No tenderness, no cyanosis, no clubbing, ROM intact, no edema. [] Neurologic: Alert and oriented X 3, normal motor function, normal sensory function, no focal deficits noted. [] Psychologic: Affect normal, judgement normal, mood normal. [] Current Patient Data Vital Signs Vital Signs Date Time Temp Pulse Resp B/P (MAP) Pulse Ox O2 Delivery O2 Flow Rate FiO2 07/08/20 13:05 16 98 Room Air 07/08/20 11:53 98.2 76 135/73 (93) 98.2 Lab Values Laboratory Tests Test 07/08/20 12:00 White Blood Count 3.4 x10^3/uL (4.0-11.0) L Red Blood Count 4.84 x10^6/uL (3.50-5.40) Hemoglobin 14.1 g/dL (12.0-15.5) Hematocrit 41.9 % (36.0-47.0) Mean Corpuscular Volume 87 fL (79-100) Mean Corpuscular Hemoglobin 29 pg (25-35) Mean Corpuscular Hemoglobin Concent 34 g/dL (31-37) Red Cell Distribution Width 13.5 % (11.5-14.5) Platelet Count 190 x10^3/uL (140-400) Neutrophils (%) (Auto) 60 % (31-73) Lymphocytes (%) (Auto) 25 % (24-48) Monocytes (%) (Auto) 14 % (0-9) H Eosinophils (%) (Auto) 1 % (0-3) Basophils (%) (Auto) 1 % (0-3) Neutrophils # (Auto) 2.0 x10^3/uL (1.8-7.7) Lymphocytes # (Auto) 0.8 x10^3/uL (1.0-4.8) L Monocytes # (Auto) 0.5 x10^3/uL (0.0-1.1) Eosinophils # (Auto) 0.0 x10^3/uL (0.0-0.7) Basophils # (Auto) 0.0 x10^3/uL (0.0-0.2) Urine Collection Type Unknown Urine Color Yellow Urine Clarity Clear Urine pH 7.5 (<5.0-8.0) Urine Specific [place] 1.010 (1.000-1.030) Urine Protein Negative mg/dL (NEG-TRACE) Urine Glucose (UA) Negative mg/dL (NEG) Urine Ketones (Stick) Negative mg/dL (NEG) Urine Blood Negative (NEG) Urine Nitrite Negative (NEG) Urine Bilirubin Negative (NEG) Urine Urobilinogen Dipstick 1.0 mg/dL (0.2 mg/dL) Urine Leukocyte Esterase Negative (NEG) Urine RBC 0 /HPF (0-2) Urine WBC 0 /HPF (0-4) Urine Squamous Epithelial Cells Mod /LPF Urine Bacteria 0 /HPF (0-FEW) Sodium Level 137 mmol/L (136-145) Potassium Level 3.6 mmol/L (3.5-5.1) Chloride Level 103 mmol/L (98-107) Carbon Dioxide Level 27 mmol/L (21-32) Anion Gap 7 (6-14) Blood Urea Nitrogen 8 mg/dL (7-20) Creatinine 0.8 mg/dL (0.6-1.0) Estimated GFR (Cockcroft-Gault) 72.9 BUN/Creatinine Ratio 10 (6-20) Glucose Level 104 mg/dL (70-99) H Calcium Level 9.0 mg/dL (8.5-10.1) Total Bilirubin 1.2 mg/dL (0.2-1.0) H Aspartate Amino Transferase (AST) 492 U/L (15-37) H Alanine Aminotransferase (ALT) 355 U/L (14-59) H Alkaline Phosphatase 176 U/L (46-116) H Creatine Kinase 140 U/L (26-192) Total Protein 7.9 g/dL (6.4-8.2) Albumin 3.6 g/dL (3.4-5.0) Albumin/Globulin Ratio 0.8 (1.0-1.7) L Lipase 141 U/L (73-393) Laboratory Tests 07/08/20 12:00 Laboratory Tests 07/08/20 12:00 EKG EKG [] Radiology/Procedures Radiology/Procedures [] Course & Med Decision Making Course & Med Decision Making Pertinent Labs and Imaging studies reviewed. (See chart for details) 60F with new onset of right-sided flank pain was consistent with an acute renal stone. Because of the patient's history I am concerned that she is at higher risk for developing obstructing stone. Will initiate work-up with labs, ultrasound and urinalysis and determine need for further imaging. 13:46 reviewed and unremarkable other than mildly elevated liver function test. Right upper quadrant ultrasound and CT scan were obtained which do demonstrate some mild cholelithiasis and hepatic steatosis without any other significant inflammation or evidence of cholecystitis. Patient currently states that her symptoms are resolved. At this time we will plan to discharge home Dragon Disclaimer Dragon Disclaimer This electronic medical record was generated, in whole or in part, using a voice recognition dictation system. Departure Departure Impression: Primary Impression: Cholelithiasis Disposition: 01 DC HOME SELF CARE/HOMELESS Condition: IMPROVED Referrals: NO PCP (PCP) RADHA SMITH MD Patient Instructions: Cholelithiasis, [id number] Additional Instructions: Thank you for coming to the emergency department. You were seen for your back pain. Testing was obtained that did not demonstrate any evidence of a kidney stone. Furthermore ultrasound CT scan to demonstrate some stones within your gallbladder but no evidence of an acute infection or any life-threatening disease. Please return the emergency department if you have any sudden worsening of your symptoms, inability to tolerate food and water or fever greater than 101 F STEPHANIE,MYLA E MD Jul 08, 2020 12:10
[2020-07-08 12:12] LABS: BILIRUBIN,URINE NEGATIVE (NEG); CLARITY,URINE CLEAR; COLOR,URINE YELLOW; NITRITE,URINE NEGATIVE (NEG); PH,URINE 7.5 (<5.0-8.0); PROTEIN,URINE NEGATIVE (NEG-TRACE)
[2020-07-08] MEDS ORDERED: 0.9 % SODIUM CHLORIDE 10 ML DISP.SYRIN. IV PRN (12:15)
[2020-07-08] MEDS ORDERED: KETOROLAC 30 MG/ML VIAL. IVP ONE (12:15)
[2020-07-08] MEDS ORDERED: MORPHINE SULFATE 2 MG/ML VIAL. IV ONE (12:15)
[2020-07-08] MEDS ORDERED: IV NORMAL SALINE 1000ML BAG 1,000 ML IV SCH (12:15)
[2020-07-08 12:23] LABS: BACTERIA,URINE 0 /HPF (0-FEW); RBC,URINE 0 /HPF (0-2); WBC,URINE 0 /HPF (0-4)
[2020-07-08 12:28] LABS: BASO % 1 % (0-3); CREATININE 0.8 mg/dL (0.6-1.0); EOS % 1 % (0-3); GFR 72.9; HEMATOCRIT 41.9 % (36.0-47.0); HEMOGLOBIN 14.1 g/dL (12.0-15.5); LYMPH # 0.8 x10^3/uL (1.0-4.8); LYMPH % 25 % (24-48); MEAN CORPUSCULAR HEMOGLOBIN 29 pg (25-35); MEAN CORPUSCULAR HGB CONC 34 g/dL (31-37); MEAN CORPUSCULAR VOLUME 87 fL (79-100); MONO # 0.5 x10^3/uL (0.0-1.1); MONO % 14 % (0-9); NEUT % 60 % (31-73); PLATELET COUNT 190 x10^3/uL (140-400); POTASSIUM 3.6 mmol/L (3.5-5.1); RED BLOOD COUNT 4.84 x10^6/uL (3.50-5.40); RED CELL DISTRIBUTION WIDTH 13.5 % (11.5-14.5); WHITE BLOOD COUNT 3.4 x10^3/uL (4.0-11.0)
[2020-07-08] MEDS ORDERED: MORPHINE SULFATE 4 MG/ML VIAL. IV ONE (12:30)
[2020-07-08 12:34] LABS: ALBUMIN 3.6 g/dL (3.4-5.0); ALBUMIN/GLOBULIN RATIO 0.8 (1.0-1.7); TOTAL BILIRUBIN 1.2 mg/dL (0.2-1.0); TOTAL PROTEIN 7.9 g/dL (6.4-8.2)
--- NOTE | 2020-07-08 12:44 | RAD ---
Ultrasound the abdomen limited. HISTORY: Right flank pain. Ultrasound was used to evaluate the right upper quadrant of the abdomen. Pancreas appear normal altho ugh is incompletely evaluated, portions of the head and tail of the pancreas were obscured. Vena cava at the liver was unremarkable. Proximal aorta was unremarkable. Liver is difficult to fully evaluate . Liver appears mildly echogenic fatty infiltration is possible. A focal liver lesion was not identif ied. There are multiple gallstones in the gallbladder. Gallbladder was distended but definitive gallb ladder wall thickening not identified. Common duct is mildly dilated measuring 8 mm. Right kidney was 11.7 cm in length without a mass or hydronephrosis. IMPRESSION: 1. Fatty infiltration the liver. 2. Cholelithiasis. 3. Mildly dilated common duct. Electronically signed by: Sunil Chester MD (07/08/2020 12:42 PM) [facility]
[2020-07-08] MEDS ORDERED: IOHEXOL 300 MG/ML 100ML VIAL. IV ONE (13:00)
[2020-07-08] MEDS ORDERED: CONTRAST GIVEN. MC PRN (13:00)
--- NOTE | 2020-07-08 13:28 | RAD ---
Exam: CT abdomen/pelvis with intravenous contrast Indication: Right upper quadrant pain Comparison: CT abdomen pelvis 11/29/2018 Technique: Helical CT imaging performed of the abdomen and pelvis after the intravenous administratio n of 75 mL Omnipaque 300 intravenous contrast. Sagittal and coronal reformats were obtained. One or more of the following individualized dose reduction techniques were utilized for this examinat ion: 1. Automated exposure control 2. Adjustment of the mA and/or kV according to patient size 3. Use of iterative reconstruction technique. Findings: Lower chest: Small bilateral pleural effusions and lower lobe consolidations have resolved. There are mild residual linear opacities, which may be scarring or atelectasis. Heart is normal Liver: The liver is normal in size and diffusely low in attenuation. No focal lesion. Gallbladder/Biliary Tree: The gallbladder is distended measuring 13 cm in length, unchanged. There is no radiopaque cholelithiasis or wall thickening. Common bile duct is slightly prominent measuring 6 mm. Pancreas: Normal. Spleen: Normal. Adrenal Glands: Normal. Kidneys/Ureters/Bladder: The right kidney and ureter are normal. The left kidney is mildly enlarged a nd rotated laterally with probable duplicated collecting system. Left nephrolithiasis in the superior pole is unchanged. The calculus at the UPJ on the prior exam has resolved. Moderate hydronephrosis h as decreased. No ureteral calculus. The bladder is unchanged in appearance with probable small divert iculum posteriorly on the left. Reproductive Organs: Uterus is surgically absent. Ovaries are unchanged. Stomach, small bowel, and colon: The stomach, small bowel, and colon are normal. Vasculature: Abdominal aorta is normal in caliber. No calcified atherosclerosis. Lymph Nodes: No lymphadenopathy. Peritoneum and retroperitoneum: No free fluid or free air. There are surgical clips in the pelvis. Bones: No acute osseous abnormality. There is mild lumbar degenerative disc disease. Impression: 1. Moderately distended gallbladder, unchanged. No radiopaque calculus or definite gallbladder wall thickening visualized. 2. 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 The calculus at the left UPJ o n prior exam has resolved but there is persistent mild to moderate hydronephrosis suspicious for UPJ obstruction. Perinephric fat stranding is resolved. Unchanged nonobstructing left nephrolithiasis. 3. Hepatic steatosis. 4. Small pleural effusions and lower lobe consolidations have resolved. Electronically signed by: Stefanie Butler MD (07/08/2020 1:26 PM) [id number]
--- NOTE | 2020-07-08 14:03 | EKG ---
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
[2020-07-08 14:19] VITALS: BP 127/70
== END 2020-07-08 14:25 | disposition home or self-care (01) ==
LOC: ER 11:43
DX: K80.20 Calculus of gallbladder without cholecystitis without obstruction (principal); Z87.442 Personal history of urinary calculi; Z87.440 Personal history of urinary (tract) infections; Z90.710 Acquired absence of both cervix and uterus; Z91.041 Radiographic dye allergy status
CPT/HCPCS: 36415; 74177; 76705; 80053; 81001; 82550; 83690; 85025; 93005; 96361; 96374; 96375; 99285; J1885; J2270; J7030; Q9967